=== PATIENT | female | born 1960 | race Caucasian/White ===

== ENCOUNTER 2020-04-27 08:02 | Emergency (ER) | payer OTHER, SELFPAY ==
[2020-04-27 08:04] VITALS: BP 127/80; BP 131/92; PULSE 100; PULSE 108; RESP 17; TEMP 36.8; O2SAT 95; BMI 34.5
--- NOTE | 2020-04-27 08:20 | ED.ABDPAIN ---
HPI - Abdominal Pain General Chief Complaint: Abdominal Pain Stated Complaint: ABD PAIN Time Seen by Provider: 04/27/20 08:10 Source: EMS Mode of arrival: EMS History of Present Illness HPI narrative: 60-year-old female with a past medical history of AFib on Coumadin, bipolar, depression, diverticulosis, DVT, hyperlipidemia, PE with IVC filter, P 80, chronic venous insufficiency, stress incontinence s/p bladder stimulator, total hysterectomy c/o sudden onset periumbilical abdominal pain since last night. Admits to previously being diagnosed with hernia and, however was not painful, reports bump to abdomen. denies fever, chills, nausea / vomiting, constipation, difficulty urinating or having BM MD elicited complaint: abdominal pain Related Data Allergies Allergy/AdvReac Type Severity Reaction Status Date / Time aspirin [ASPIRIN] Allergy Unknown CAN'T Unverified 03/31/20 16:49 TAKE- ON WARFARIN Review of Systems Review of Systems Constitutional: No Weight loss, No Fever, No Chills Cardiovascular: No Chest Pain, No SOB Respiratory: No Cough, No Sputum Gastrointestinal: No Nausea, No Vomiting, No Diarrhea, No Constipation, + Abdominal pain Genitourinary: No irregular bleeding, No Dysuria, No Urinary Frequency, No Hematuria, No Urinary Incontinence, No Urgency, No Flank Pain, No Urinary Flow Changes Skin: No Skin Lesions, No rash Yes all other systems are reviewed and are negative Physical Exam Vital Signs: Vital Signs: Vital Signs Temp Pulse Resp BP Pulse Ox 04/27/20 12:05 98.2 F 79 20 130/87 93 04/27/20 10:19 90 18 135/90 H 95 04/27/20 08:04 98.3 F 100 17 131/92 H 95 Body Mass Index 34.5 Const: General: cooperative and healthy appearing Orientation/consciousness: patient oriented x3 Limitations: no limitations Eyes: General: appearance normal, both eyes and all related structures EOM: EOMs intact bilaterally Neck: Neck: Yes normal visual inspection Resp: Effort & Inspection: normal respiratory effort GI: Inspection: Yes normal to inspection Palpation (GI): Soft to palpation, Tenderness to palpation present (GI) and Hernia present ventral (partially reproducible with pain/ttp) Neuro: General: patient oriented x3 Extrem: General: Yes normal to inspection Course Course Course Narrative: -943-- labs unremarkable, lactate 2, UA negative low concern for severe sepsis -1127-- CT showing ventral and umbilical hernias containing fat. Appear similar to CT in October 2019. will repeat lactate plan for DC -- Repeat lactate 0.4 worrisome signs and symptoms and strict return precautions discussed. Patient is to follow-up with PCP/GI as needed MDM - Abdominal Pain MDM Narrative Medical decision making narrative: 60-year-old female with a past medical history of AFib on Coumadin, bipolar, depression, diverticulosis, DVT, hyperlipidemia, PE with IVC filter, P 80, chronic venous insufficiency, stress incontinence s/p bladder stimulator, total hysterectomy c/o sudden onset periumbilical abdominal pain since last night. on exam VSS, appears in pain, abdomen soft with palpable hernia partially reproducible with pain. Concern for incarcerated/strangulated hernia vs SBO vs diverticulitis vs pancreatitis or other infectious etiology Plan: Labs, UA, CT AP, pain control, reassess Differential Diagnosis Differential diagnosis: Likely abdominal pain, bowel perforation, constipation, diverticulitis and small bowel obstruction Lab Data Result diagrams: 04/27/20 08:49 04/27/20 08:49 Labs: Lab Results 04/27/20 04/27/20 04/27/20 Range/Units 08:49 08:49 08:49 WBC 8.4 (4.8-10.8) X10*3/uL RBC 4.58 (4.20-5.50) X10*6/uL Hgb 13.3 (12.0-16.0) g/dl Hct 40.9 (37-47) % MCV 89.3 (80-98) fL MCH 29.0 (27.0-33.0) pg MCHC 32.5 (31.0-35.0) g/dl RDW 13.3 (11.0-16.0) % Plt Count 246 (160-400) X10*3/uL MPV 11.6 (9.4-12.3) fL Immature Gran % (Auto) 0.2 (0.0-0.4) % Neut % (Auto) 72.3 (45-73) % Lymph % (Auto) 16.9 L (20-40) % [place] % (Auto) 7.5 (2-11) % Eos % (Auto) 2.5 (0-4) % Baso % (Auto) 0.6 (0-2) % Lymph # (Auto) 1.4 (1.2-4.9) X10*3/uL [place] # (Auto) 0.6 (0.1-1.2) X10*3/uL Eos # (Auto) 0.2 (0.0-0.4) X10*3/uL Baso # (Auto) 0.1 (0.0-0.2) X10*3/uL Abs Immat Gran (auto) 0.02 (0.00-0.03) X10*3/uL Absolute Neuts (auto) 6.1 (2.0-8.3) X10*3/uL Absolute Nucleated RBC 0.000 (0.0-0.012) X10*3/uL Nucleated RBC % (auto) 0.0 (0.0-0.2) /100WBC Hold Blue Top Sodium 143 (135-145) mmol/L Potassium 4.4 (3.3-5.1) mmol/l Chloride 107 (96-108) mmol/L Carbon Dioxide 25 (22-29) mmol/L Anion Gap 15 (12-20) BUN 17 H (9-16) mg/dL Creatinine 0.74 (0.5-1.4) mg/dL Estim Creat Clear Calc 76.8 Estimated GFR > 60 Random Glucose 109 (60-115) mg/dL Lactic Acid (0.5-2.0) mmol/L Calcium 8.8 (8.4-10.2) mg/dL Total Bilirubin 0.4 (0.0-1.0) mg/dL Direct Bilirubin < 0.2 (0.0-0.5) mg/dL AST 14 (5-31) U/L ALT 17 (0-31) U/L Alkaline Phosphatase 149 H (39-117) U/L Total Protein 6.7 (6.5-8.0) g/dL Albumin 3.7 (3.5-5.0) g/dL Lipase 45 (8-78) U/L Urine Color YELLOW Urine Appearance HAZY Urine pH 6.0 (5.0-8.0) Ur Specific [address] 1.020 (1.005-1.025) Urine Protein NEG (NEG-TRACE) MG/DL Urine Glucose (UA) NEG (NEG) MG/DL Urine Ketones NEG (NEG) MG/DL Urine Blood NEG (NEG) Urine Nitrite NEG (NEG) Ur Leukocyte Esterase 1+ H (NEG) Urine RBC 0 (0) /HPF Urine WBC 1-4 (0-4) /HPF Ur Squamous Epith Cells TRACE /LPF Urine Bacteria NONE /LPF Urine Mucus TRACE /LPF 04/27/20 04/27/20 04/27/20 Range/Units 08:49 08:55 12:12 WBC (4.8-10.8) X10*3/uL RBC (4.20-5.50) X10*6/uL Hgb (12.0-16.0) g/dl Hct (37-47) % MCV (80-98) fL MCH (27.0-33.0) pg MCHC (31.0-35.0) g/dl RDW (11.0-16.0) % Plt Count (160-400) X10*3/uL MPV (9.4-12.3) fL Immature Gran % (Auto) (0.0-0.4) % Neut % (Auto) (45-73) % Lymph % (Auto) (20-40) % [place] % (Auto) (2-11) % Eos % (Auto) (0-4) % Baso % (Auto) (0-2) % Lymph # (Auto) (1.2-4.9) X10*3/uL [place] # (Auto) (0.1-1.2) X10*3/uL Eos # (Auto) (0.0-0.4) X10*3/uL Baso # (Auto) (0.0-0.2) X10*3/uL Abs Immat Gran (auto) (0.00-0.03) X10*3/uL Absolute Neuts (auto) (2.0-8.3) X10*3/uL Absolute Nucleated RBC (0.0-0.012) X10*3/uL Nucleated RBC % (auto) (0.0-0.2) /100WBC Hold Blue Top SEE NOTE Sodium (135-145) mmol/L Potassium (3.3-5.1) mmol/l Chloride (96-108) mmol/L Carbon Dioxide (22-29) mmol/L Anion Gap (12-20) BUN (9-16) mg/dL Creatinine (0.5-1.4) mg/dL Estim Creat Clear Calc Estimated GFR Random Glucose (60-115) mg/dL Lactic Acid 2.0 0.4 L (0.5-2.0) mmol/L Calcium (8.4-10.2) mg/dL Total Bilirubin (0.0-1.0) mg/dL Direct Bilirubin (0.0-0.5) mg/dL AST (5-31) U/L ALT (0-31) U/L Alkaline Phosphatase (39-117) U/L Total Protein (6.5-8.0) g/dL Albumin (3.5-5.0) g/dL Lipase (8-78) U/L Urine Color Urine Appearance Urine pH (5.0-8.0) Ur Specific [address] (1.005-1.025) Urine Protein (NEG-TRACE) MG/DL Urine Glucose (UA) (NEG) MG/DL Urine Ketones (NEG) MG/DL Urine Blood (NEG) Urine Nitrite (NEG) Ur Leukocyte Esterase (NEG) Urine RBC (0) /HPF Urine WBC (0-4) /HPF Ur Squamous Epith Cells /LPF Urine Bacteria /LPF Urine Mucus /LPF Discharge Plan Discharge Clinical Impression: Abdominal pain Qualifiers: Abdominal location: generalized Qualified Code(s): R10.84 - Generalized abdominal pain Patient Disposition: Home, Self-Care Instructions: Abdominal Pain (ED) Additional Instructions: your blood work was reassuring /unremarkable today in the ED Your CT scan did not show any changes from her prior CT scan in October You need to take Tylenol at home for pain Make sure staying hydrated Follow-up with her primary care doctor If pain becomes unbearable, you are unable to eat or drink, have nausea/vomiting return to the ED Referrals: Alberto Borjas [Physician] - 1 week (as neededs) Natalya Salmon MD [Primary Care Provider] - 2 days PMF Past Medical History Attestation statement: The following information was validated with the patient. Source: unable to obtain Medical History (Updated 04/27/20 @ 11:45 by JOSE Peres) Atrial fibrillation Bipolar 1 disorder Chronic venous insufficiency Diverticulosis Hyperlipidemia PAD (peripheral artery disease) Stress incontinence Social History Social History Alcohol intake: never Smoking Status: Current every day smoker Use of substances other than those prescribed or required for medical reasons: No Advance Directives: No Advance Directives Information Provided: No
[2020-04-27 08:55] LABS: MANUAL DIFF FLAG NO
[2020-04-27 08:58] LABS: Basophils Absolute Auto 0.1 X10*3/uL (0.0-0.2); Basophils Percent Auto 0.6 % (0-2); Eosinophils Absolute Auto 0.2 X10*3/uL (0.0-0.4); Eosinophils Percent Auto 2.5 % (0-4); Hematocrit 40.9 % (37-47); Hemoglobin 13.3 g/dl (12.0-16.0); Imm Gran Abs Auto 0.02 X10*3/uL (0.00-0.03); Imm Gran Pct Auto 0.2 % (0.0-0.4); Lymphocytes Absolute Auto 1.4 X10*3/uL (1.2-4.9); Lymphocytes Percent Auto 16.9 % (20-40); Mean Corpuscular HGB Conc 32.5 g/dl (31.0-35.0); Mean Corpuscular Volume 89.3 fL (80-98); Mean Platelet Volume 11.6 fL (9.4-12.3); Monocytes Absolute Auto 0.6 X10*3/uL (0.1-1.2); Monocytes Percent Auto 7.5 % (2-11); Neutrophils Absolute Auto 6.1 X10*3/uL (2.0-8.3); Neutrophils Percent Auto 72.3 % (45-73); Platelet Count 246 X10*3/uL (160-400); Red Blood Count 4.58 X10*6/uL (4.20-5.50); Red Cell Distribution Width 13.3 % (11.0-16.0); White Blood Count 8.4 X10*3/uL (4.8-10.8)
[2020-04-27] MEDS: Morphine Sulfate 4 MG/ML CARTRIDGE 2 MG IVPUSH (09:01)
[2020-04-27] MEDS: 0.9 % Sodium Chloride 1,000 ML 999 ML IVCONT ×2 (09:01→10:19)
[2020-04-27 09:12] LABS: Appearance Urine HAZY; Color Urine YELLOW; Glucose Urine UA NEG (NEG); Leukocyte Esterase Urine 1+ (NEG); Nitrite Urine NEG (NEG); Urine Blood NEG (NEG); Urine Ketones NEG (NEG); Urine Protein NEG (NEG-TRACE)
[2020-04-27 09:22] LABS: Mucus Urine TRACE /LPF; RBC Urine 0 /HPF (0); Squamous Epithelial Cell Urine TRACE /LPF
[2020-04-27 09:30] LABS: Alanine Aminotransferase 17 U/L (0-31); Albumin Level 3.7 g/dL (3.5-5.0); Alkaline Phosphatase 149 U/L (39-117); Anion Gap 15 (12-20); Aspartate Amino Transferase 14 U/L (5-31); Bilirubin Direct < 0.2 mg/dL (0.0-0.5); Bilirubin Total 0.4 mg/dL (0.0-1.0); Blood Urea Nitrogen 17 mg/dL (9-16); Calcium 8.8 mg/dL (8.4-10.2); Carbon Dioxide 25 mmol/L (22-29); Chloride 107 mmol/L (96-108); Creatinine Clr Calc Pharmacy 76.8; Estimated Glomerular Filt Rate > 60; Glucose Random 109 mg/dL (60-115); Lipase 45 U/L (8-78); Potassium 4.4 mmol/l (3.3-5.1); Sodium 143 mmol/L (135-145); Total Protein 6.7 g/dL (6.5-8.0)
[2020-04-27 10:19] VITALS: BP 135/90; PULSE 90; RESP 18; O2SAT 95
--- NOTE | 2020-04-27 10:30 | CT_ITS ---
EXAMINATION: CT ABDOMEN AND PELVIS WITH CONTRAST CLINICAL INFORMATION: Pain. Evaluate for strangulated or incarcerated hernia. COMPARISON: Previous renal ultrasound most recent November [address] of the abdomen and pelvis most recent October 2019 TECHNIQUE: Multidetector volumetric images were obtained from the superior aspect of the liver through the pubic symphysis following administration 85 mL of Omnipaque 350 intravenous contrast. Sagittal and coronal reformatted images were obtained on the technologist's workstation. Oral contrast: No This CT examination was performed using dose optimization techniques as appropriate, variously including the following: *Automated exposure control *Adjustment of mA and/or kV according to patient size (this includes techniques or standardized protocols for targeted exams where dose is matched to indication/reason for exam; i.e. extremities or head) *Use of iterative reconstruction technique DLP: 562 mGy-cm FINDINGS: LUNG BASES: The visualized lung bases are unremarkable. LIVER, GALLBLADDER, AND BILIARY TREE: The liver is normal in size, shape, and attenuation. No focal hepatic lesion or biliary ductal dilatation is present. The gallbladder is unremarkable with no evidence of radiopaque gallstones, gallbladder wall thickening, or obvious pericholecystic inflammatory changes. PANCREAS: Unremarkable. SPLEEN: Unremarkable. ADRENAL GLANDS: There is a 1.6 cm low-attenuation left adrenal lesion that is stable. The right adrenal gland is normal-appearing. KIDNEYS AND URETERS: There is a small subcapsular fluid collection adjacent to the anterior right kidney. This measures 2 x 3 x 5 cm in AP transverse and longitudinal dimension. This is compatible with a history of resolving perinephric hematoma. There is mild cortical thinning or scarring of the upper and lower pole of the left kidney. The kidneys are otherwise unremarkable. BLADDER: Unremarkable. GASTROINTESTINAL TRACT: There is diverticulosis of the colon. No evidence of diverticulitis is seen. Small and large bowel is otherwise unremarkable. The appendix is unremarkable. There may be a small esophageal hernia. ABDOMINAL WALL: There is an upper midline ventral hernia containing fat. This measures 2 x 2 by 3 cm. There is a more cystic inferior smaller ventral or supraumbilical hernia containing fat that measures 1 cm. There is a small umbilical hernia containing fat that measures 1 cm. No infiltration of the fat or fluid is seen to suggest vascular compromise. Hernias appear similar to most recent exam October 2019. There are multiple subcutaneous nodules in the bilateral abdominal wall, question related to subcutaneous injections sites. LYMPH NODES: There are no enlarged lymph nodes. There is no ascites. VASCULAR: Evidence of atherosclerotic disease. No aneurysm is seen. There is a left common iliac vein stent. PELVIC VISCERA: The uterus appears to have been removed. No pelvic mass is seen. OSSEOUS STRUCTURES: There is curvature of the lumbar spine to the right and degenerative changes. There are stimulator leads in the bilateral sacrum that appear unchanged. IMPRESSION: Ventral and umbilical hernias containing fat. These appear similar to CT scan October 2019. Continued interval decrease in size in right subcapsular fluid collection compatible with resolving perinephric hematoma. No stone or hydronephrosis is seen. Diverticulosis of the colon. Probable esophageal hernia. Stable left adrenal lesion.
--- NOTE | 2020-04-27 10:32 | PC.NURSE ---
pt pharmacy affairs assistant hadley updated on plan of care w pt permission. pt pharmacy affairs assistant sts pt was scheduled for community activites with members of day program, but had suddenly felt a lot of stomachh pain this morning. pharmacy affairs assistant sts hx of pt avoiding social activities and long standing depression. contacts given incase pt is dc and needs ride. hadley: [phone], иван [phone]
[2020-04-27] MEDS: iohexoL 350 MG/ML 100 ML INFUS..BTL 85 ML IV (10:53)
[2020-04-27 12:05] VITALS: BP 130/87; PULSE 79; RESP 20; TEMP 36.8; O2SAT 93
[2020-04-27] MEDS: Acetaminophen 325 MG TABLET 650 MG PO (12:33)
[2020-04-27 12:37] LABS: Lactic Acid 0.4 mmol/L (0.5-2.0)
== END 2020-04-29 10:11 | disposition home or self-care (01) ==
PROVIDERS: Physician Assistant; Emergency Provider Emergency Medicine; PCP Family Medicine
DX: R10.84 Generalized abdominal pain (principal); F17.200 Nicotine dependence, unspecified, uncomplicated; Z71.6 Tobacco abuse counseling; Z79.899 Other long term (current) drug therapy; Z79.01 Long term (current) use of anticoagulants; Z79.82 Long term (current) use of aspirin
CPT/HCPCS: 36415; 74177; 80048; 80076; 81001; 81003; 83605; 83690; 85025; 87086; 96361; 96374; 99284; J2270

== ENCOUNTER → 2020-05-10 09:15 | Outpatient (BNVA) | payer OTHER, SELFPAY | PROVIDERS: PCP Internal Medicine; Referring Provider Family Medicine; Visit Provider Internal Medicine | DX: I82.403 Acute embolism and thrombosis of unspecified deep veins of lower extremity, bilateral (principal); Z51.81 Encounter for therapeutic drug level monitoring; Z79.01 Long term (current) use of anticoagulants | CPT/HCPCS: 85610; 99211 ==

== ENCOUNTER → 2020-06-07 10:01 | Outpatient (BNVA) | payer OTHER, SELFPAY | PROVIDERS: PCP Internal Medicine; Visit Provider Internal Medicine | DX: I82.403 Acute embolism and thrombosis of unspecified deep veins of lower extremity, bilateral (principal); Z51.81 Encounter for therapeutic drug level monitoring; Z79.01 Long term (current) use of anticoagulants | CPT/HCPCS: 85610; 99211 ==

== ENCOUNTER 2020-06-29 16:08 | Outpatient (REF) | payer OTHER, SELFPAY ==
--- NOTE | 2020-06-29 | US_ITS ---
EXAMINATION: US RETROPERITONEAL LIMITED (RENAL ONLY) CLINICAL INFORMATION: Renal calculus. COMPARISON: CT abdomen and pelvis 04/27/2020. Renal ultrasound 12/08/2019 and 09/23/2019. KUB 11/18/2019 and 09/02/2019. TECHNIQUE: Real-time imaging of the kidneys. FINDINGS: RIGHT KIDNEY: 8.5 x 5.8 x 5.3 cm (SAG x AP x TRV). The kidney is normal in size, contour, and echogenicity. Renal cortical thickness is normal. There is a subcapsular hypoechoic area with some internal echoes adjacent to the midpole measuring 3.7 x 2.5 x 2.5 cm. Again, this likely represents a subcapsular hematoma. This does not appear appreciably changed size from CT April 2020. No calculi. No hydronephrosis. LEFT KIDNEY: 9.7 x 4.6 x 4.6 cm (SAG x AP x TRV). The kidney is normal in size, contour, and echogenicity. Renal cortical thickness is normal. No calculi or focal parenchymal lesions. No hydronephrosis. US/US renal BI IMPRESSION: No stone seen. Stable probable subcapsular hematoma adjacent to the midpole of the right kidney..
== END 2020-06-29 16:09 | disposition home or self-care (01) ==
LOC: HO.HMGCX 16:08
PROVIDERS: PCP Internal Medicine; Visit Provider Urology
DX: N20.0 Calculus of kidney (principal)
CPT/HCPCS: 76775

== ENCOUNTER → 2020-07-19 08:43 | Outpatient (BNVA) | payer OTHER, SELFPAY | PROVIDERS: PCP Internal Medicine; Visit Provider Internal Medicine | DX: I82.403 Acute embolism and thrombosis of unspecified deep veins of lower extremity, bilateral (principal); Z51.81 Encounter for therapeutic drug level monitoring; Z79.01 Long term (current) use of anticoagulants | CPT/HCPCS: 85610; 99211 ==

== ENCOUNTER → 2020-08-23 09:01 | Outpatient (BNVA) | payer MEDICAID, SELFPAY | PROVIDERS: PCP Internal Medicine; Visit Provider Internal Medicine | DX: I82.403 Acute embolism and thrombosis of unspecified deep veins of lower extremity, bilateral (principal); Z51.81 Encounter for therapeutic drug level monitoring; Z79.01 Long term (current) use of anticoagulants | CPT/HCPCS: 85610; 99211 ==

== ENCOUNTER → 2020-09-21 08:57 | Outpatient (BNVA) | payer MEDICAID, SELFPAY | PROVIDERS: Visit Provider Internal Medicine | DX: I82.403 Acute embolism and thrombosis of unspecified deep veins of lower extremity, bilateral (principal); Z51.81 Encounter for therapeutic drug level monitoring; Z79.01 Long term (current) use of anticoagulants | CPT/HCPCS: 85610; 99211 ==

== ENCOUNTER 2020-10-07 11:48 | Emergency (ER) | payer MEDICAID, SELFPAY ==
--- NOTE | ~2020-10-07 | CT_ITS ---
EXAMINATION: CT ABDOMEN AND PELVIS WITH CONTRAST CLINICAL INFORMATION: Hernia, pain, evaluate for incarceration. COMPARISON: CT abdomen and pelvis with contrast 04/27/2020. TECHNIQUE: Multidetector volumetric images were obtained from the superior aspect of the liver through the pubic symphysis following administration 85 mL of Omnipaque 350 intravenous contrast. Sagittal and coronal reformatted images were obtained on the technologist's workstation. Oral contrast: No This CT examination was performed using dose optimization techniques as appropriate, variously including the following: *Automated exposure control *Adjustment of mA and/or kV according to patient size (this includes techniques or standardized protocols for targeted exams where dose is matched to indication/reason for exam; i.e. extremities or head) *Use of iterative reconstruction technique DLP: 633 mGy-cm FINDINGS: LUNG BASES: The visualized lung bases are unremarkable. LIVER, GALLBLADDER, AND BILIARY TREE: The liver is normal in size, shape, and attenuation. No focal hepatic lesion or biliary ductal dilatation is present. The gallbladder is unremarkable with no evidence of radiopaque gallstones, gallbladder wall thickening, or obvious pericholecystic inflammatory changes. PANCREAS: Unremarkable. SPLEEN: Unremarkable. ADRENAL GLANDS: Left adrenal nodule approximately 1.9 x 1.6 cm and water attenuation, 5 H U, stable from prior CT 2019. Right adrenal unremarkable. KIDNEYS AND URETERS: The kidneys enhance symmetrically. There is no hydronephrosis, hydroureter, calculi, or perinephric stranding. Right anterior subcapsular fluid collection continues to decrease in size, currently measuring 1.2 x 2.9 x 4.2 cm. Prior measurements 2.2 x 3.9 x 4.9 cm. BLADDER: Unremarkable. GASTROINTESTINAL TRACT: Small hiatal hernia repair approximately 4.4 cm. No bowel obstruction or focal inflammatory changes in the bowel or mesentery. The appendix is normal. There is no fluid collection or ascites. ABDOMINAL WALL: There is small ventral fat-containing hernia approximately 6 cm superior to the umbilicus, under 4 cm. There is fat-containing umbilical hernia measuring approximately 3 cm. Small fat-containing inguinal hernias are present. No herniated bowel or strangulation. LYMPH NODES: No lymphadenopathy. VASCULAR: No acute abnormality. Left common iliac vein stent again seen. PELVIC VISCERA: Unremarkable. OSSEOUS STRUCTURES: Sacral spinal stimulator leads again seen. No acute bony abnormality. CT/CT abdomen pelvis w con IMPRESSION: 1. No inflammatory changes in bowel or mesentery. Normal appendix. 2. Small stable fat-containing ventral or inguinal hernias. 3. Stable cystic left adrenal nodule under 2 cm. 4. Right anterior renal subcapsular fluid collection decreased in size.
--- NOTE | ~2020-10-07 | US_ITS ---
EXAMINATION: US VENOUS ULTRASOUND WITH DOPPLER LOWER EXTREMITY, LEFT CLINICAL INFORMATION: Edema left lower extremity. Assess for occult DVT. COMPARISON: Left leg venous ultrasound with Doppler 05/19/2019. TECHNIQUE: Ultrasound of the deep veins is performed from the hip to the calf with compression sonography and color and pulse Doppler assessment. Spectral analysis with color-flow imaging is performed. FINDINGS: There is normal venous compression and respiratory variation and augmented flow. The visualized common femoral vein, superficial femoral vein, profunda femoral vein, popliteal vein, and the trifurcation region shows no evidence of deep venous thrombosis. No popliteal fossa cyst demonstrated. US/US venous duplex LE LT IMPRESSION: No DVT demonstrated in the left lower extremity.
[2020-10-07 11:58] VITALS: BP 152/94; PULSE 101; RESP 16; TEMP 36.9; O2SAT 96; BMI 34.5
--- NOTE | 2020-10-07 12:43 | ED.GENADULT ---
HPI - General Adult General Chief complaint: General Medical Stated complaint: foot issue Time Seen by Provider: 10/07/20 12:04 Source: patient Mode of arrival: ambulatory Limitations: no limitations History of Present Illness HPI narrative: 60-year-old female with a past medical history of AFib on Coumadin, bipolar, depression, diverticulosis, DVT, hyperlipidemia, PE with IVC filter, P 80, chronic venous insufficiency, stress incontinence s/p bladder stimulator, total hysterectomy c/o left lower extremity pain in the calf which radiates the foot x2 weeks. No injury or trauma. No numbness, tingling. History of multiple DVTs however has been compliant with her Coumadin. Last INR on September 21 was 2.4 per patient. Patient is also complaining of mid abdominal pain. She tells me that she has a known hernia and has had pain in the site for 2 weeks. No nausea, vomiting, diarrhea, constipation, fevers, chills, urinary symptoms. Patient tells me she is taking pain Tylenol with continued pain. Related Data Previous Rx's Medication Instructions Recorded warfarin 5 mg tablet 5 mg PO DAILY #90 tab 05/10/20 Allergies Allergy/AdvReac Type Severity Reaction Status Date / Time aspirin [ASPIRIN] Allergy Unknown CAN'T Verified 09/21/20 08:58 TAKE- ON WARFARIN Review of Systems Review of Systems: Yes all other systems are reviewed and are negative Constitutional: Constitutional: Reports no additional constitutional complaints, Denies body ache(s), Denies chills, Denies fever(s), Denies headache(s) and Denies weakness Eyes: Eyes: Reports no additional eye complaints and Denies change in vision ENT: Reports system reviewed and no additional complaints, except as documented, Denies dizziness, Denies headache(s), Denies nasal congestion, Denies nasal discharge and Denies neck pain Cardiovascular: Cardiovascular: Reports no additional cardiovascular complaints, Denies chest pain, Denies leg edema and Denies dyspnea Respiratory: Respiratory: Reports no additional respiratory complaints, Denies cough and Denies dyspnea Gastrointestinal: Gastrointestinal: Reports no additional gastrointestinal complaints, Reports abdominal pain, Denies diarrhea, Denies nausea and Denies vomiting Genitourinary: Genitourinary: Reports no additional female genitourinary complaints and Denies urinary incontinence Musculoskeletal: Musculoskeletal: Reports no additional musculoskeletal complaints, Denies back pain, Denies arthralgias, Denies joint swelling, Denies neck pain, Denies numbness and Denies tingling Comments: Calf pain Integumentary/Breasts: Skin/Breast: Reports system reviewed and no additional complaints, except as docu and Denies rash Neurologic: Reports system reviewed and no additional complaints, except as documented, Denies Abnormal speech present, Denies dizziness, Denies headache(s), Denies numbness, Denies tingling and Denies weakness PMFSH Past Medical History Attestation statement: The following information was validated with the patient. Source: old records reviewed and nursing notes reviewed Medical History Atrial fibrillation Bipolar 1 disorder Chronic venous insufficiency Diverticulosis Hyperlipidemia PAD (peripheral artery disease) Stress incontinence Social History Social History Alcohol intake: never Smoking Status: Never smoker Use of substances other than those prescribed or required for medical reasons: No Advance Directives: Yes Advance Directives Information Provided: No Advance Directives on File: No Physical Exam Vital Signs: Vital Signs: Last Vital Signs Temp 98.5 F 10/07/20 16:00 Pulse 74 10/07/20 16:00 Resp 18 10/07/20 16:00 BP 141/70 H 10/07/20 16:00 Pulse Ox 96 10/07/20 16:00 Body Mass Index 34.5 Const: General: cooperative, healthy appearing, comfortable and no acute distress Orientation/consciousness: patient oriented x3 Limitations: no limitations HENMT: Head: Yes normal to inspection Ears: hearing grossly normal bilaterally General nose exam: Normal external nose present Face and sinus: Yes normal facial exam Mouth: Normal oral and palatal mucosa present Throat: Yes posterior oropharynx normal Eyes: General: appearance normal, both eyes and all related structures Pupils: Equal, round and reactive pupils present Neck: Neck: Yes normal visual inspection Chest: Chest palpation & inspection: normal inspection of the chest Resp: Effort & Inspection: normal respiratory effort Auscultation: clear to auscultation bilaterally Cardio: Rate: regular rate Rhythm: regular rhythm Peripheral pulses: Peripheral pulses 2+ throughout GI: Inspection: Yes normal to inspection Palpation (GI): Soft to palpation and Tenderness to palpation present (GI) (Umbilical hernia palpated with the tenderness. Unable to reduce) Auscultation: normal bowel sounds Back/Spine/Pelvis: Thoracic/Lumbar Spine: thoracic and lumbar spine normal to inspection Skin: General skin exam: no rashes or lesions noted Neuro: General: patient oriented x3, no focal motor deficits and normal sensation to monofilament Cranial nerves: Yes Equal, round and reactive pupils present Cognition (Neuro): normal cognition Speech: No Abnormal speech present Gait exam (Neuro): Normal gait present Motor exam (neuro): 5/5 motor strength present throughout Extrem: Other: No swelling left calf. Skin is warm, dry. Sensation is intact. Palpable pulses noted 2+ General: Yes normal to inspection, Yes no pedal edema and Yes calf tenderness (Left calf tenderness worsened with dorsi/plantar flexion. ) Course Course Course Narrative: 60-year-old female here with multiple complaints. She tells me that she has left calf pain x2 weeks with a history of DVTs although she has been compliant with her Coumadin with therapeutic INRs. On exam she has some calf tenderness. No swelling, warmth, redness, fevers, chills. Due to history will check ultrasound as well as INR today. Also complaining of tenderness around her umbilical hernia site x2 weeks. No other symptoms. Will check CT a/P to rule out incarcerated hernia. Check labs, urine. -ultrasound negative for DVT. Pain is likely from intermittent claudication from peripheral arterial disease. No erythema, warmth or fevers or chills consistent with cellulitis. Patient is followed by vascular and will recommend her to follow up with that. CT shows 1. No inflammatory changes in bowel or mesentery. Normal appendix. 2. Small stable fat-containing ventral or inguinal hernias. 3. Stable cystic left adrenal nodule under 2 cm. 4. Right anterior renal subcapsular fluid collection decreased in size. No signs of incarcerated hernia. I went to reexamine the patient. Her repeat abdominal pain is soft and benign. She is feeling improved. We will refer her to surgery for elective hernia repair as needed. Reviewed worrisome signs and symptoms and when to return to the emergency department. Comfortable discharge home. Medical Decision Making MDM Narrative Medical decision making narrative: DVT, calf strain Incarcerated hernia Lab Data Result diagrams: 10/07/20 13:24 10/07/20 13:24 Labs: Lab Results 10/07/20 10/07/20 10/07/20 Range/Units 13:24 13:24 13:24 WBC 10.0 (4.8-10.8) X10*3/uL RBC 4.44 (4.20-5.50) X10*6/uL Hgb 13.3 (12.0-16.0) g/dl Hct 40.7 (37-47) % MCV 91.7 (80-98) fL MCH 30.0 (27.0-33.0) pg MCHC 32.7 (31.0-35.0) g/dl RDW 13.2 (11.0-16.0) % Plt Count 204 (160-400) X10*3/uL MPV 11.4 (9.4-12.3) fL Immature Gran % (Auto) 0.4 (0.0-0.4) % Neut % (Auto) 67.6 (45-73) % Lymph % (Auto) 21.5 (20-40) % [place] % (Auto) 7.4 (2-11) % Eos % (Auto) 2.6 (0-4) % Baso % (Auto) 0.5 (0-2) % Lymph # (Auto) 2.2 (1.2-4.9) X10*3/uL [place] # (Auto) 0.7 (0.1-1.2) X10*3/uL Eos # (Auto) 0.3 (0.0-0.4) X10*3/uL Baso # (Auto) 0.1 (0.0-0.2) X10*3/uL Abs Immat Gran (auto) 0.04 H (0.00-0.03) X10*3/uL Absolute Neuts (auto) 6.8 (2.0-8.3) X10*3/uL Absolute Nucleated RBC 0.000 (0.0-0.012) X10*3/uL Nucleated RBC % (auto) 0.0 (0.0-0.2) /100WBC PT 20.8 H (10.8-13.0) SEC INR 1.7 H (0.9-1.1) Sodium 141 (135-145) mmol/L Potassium 4.8 (3.3-5.1) mmol/L Chloride 107 (96-108) mmol/L Carbon Dioxide 24 (22-29) mmol/L Anion Gap 15 (12-20) BUN 20 H (9-16) mg/dL Creatinine 0.77 (0.5-1.4) mg/dL Estim Creat Clear Calc 73.8 Estimated GFR > 60 Random Glucose 83 (60-115) mg/dL Calcium 9.1 (8.4-10.2) mg/dL Total Bilirubin 0.2 (0.0-1.0) mg/dL Direct Bilirubin < 0.2 (0.0-0.5) mg/dL AST 24 D (5-31) U/L ALT 22 (0-31) U/L Alkaline Phosphatase 136 H (39-117) U/L Total Protein 7.3 (6.5-8.0) g/dL Albumin 4.1 (3.5-5.0) g/dL Imaging Data Venous US: Attestation: I personally reviewed and interpreted this imaging study as follows: Radiologist's impression: EXAMINATION: US VENOUS ULTRASOUND WITH DOPPLER LOWER EXTREMITY, LEFT CLINICAL INFORMATION: Edema left lower extremity. Assess for occult DVT. COMPARISON: Left leg venous ultrasound with Doppler 05/19/2019. TECHNIQUE: Ultrasound of the deep veins is performed from the hip to the calf with compression sonography and color and pulse Doppler assessment. Spectral analysis with color-flow imaging is performed. FINDINGS: There is normal venous compression and respiratory variation and augmented flow. The visualized common femoral vein, superficial femoral vein, profunda femoral vein, popliteal vein, and the trifurcation region shows no evidence of deep venous thrombosis. No popliteal fossa cyst demonstrated. US/US venous duplex LE LT IMPRESSION: No DVT demonstrated in the left lower extremity. CT scan - abdomen: Attestation: I personally reviewed and interpreted this imaging study as follows: Radiologist's impression: CT/CT abdomen pelvis w con IMPRESSION: 1. No inflammatory changes in bowel or mesentery. Normal appendix. 2. Small stable fat-containing ventral or inguinal hernias. 3. Stable cystic left adrenal nodule under 2 cm. 4. Right anterior renal subcapsular fluid collection decreased in size. Discharge Plan Discharge Clinical Impression: PAD (peripheral artery disease) Hernia, umbilical Qualifiers: Obstruction and gangrene presence: without obstruction or gangrene Qualified Code(s): K42.9 - Umbilical hernia without obstruction or gangrene Patient Disposition: Home, Self-Care Instructions: Umbilical Hernia (ED) Additional Instructions: No heavy lifting or bending Use compression stockings, elevate her lower legs Prescriptions: No Action warfarin 5 mg tablet 5 mg PO DAILY Qty: 90 RF: 0 Referrals: David Menendez MD [Physician] - 2 days Lis Julian MD [Physician] - 2 days Interventions: ED Discharge Assessment Last Done: 10/07/20 16:58 Discharge Date/Time: 10/07/20 16:59
[2020-10-07 13:32] LABS: MANUAL DIFF FLAG NO
[2020-10-07 13:34] LABS: Hematocrit 40.7 % (37-47); Hemoglobin 13.3 g/dl (12.0-16.0); Imm Gran Pct Auto 0.4 % (0.0-0.4); Mean Corpuscular HGB Conc 32.7 g/dl (31.0-35.0); Mean Corpuscular Volume 91.7 fL (80-98); Mean Platelet Volume 11.4 fL (9.4-12.3); Neutrophils Percent Auto 67.6 % (45-73); Platelet Count 204 X10*3/uL (160-400); Red Blood Count 4.44 X10*6/uL (4.20-5.50); Red Cell Distribution Width 13.2 % (11.0-16.0)
[2020-10-07 13:35] LABS: Basophils Absolute Auto 0.1 X10*3/uL (0.0-0.2); Basophils Percent Auto 0.5 % (0-2); Eosinophils Absolute Auto 0.3 X10*3/uL (0.0-0.4); Eosinophils Percent Auto 2.6 % (0-4); Imm Gran Abs Auto 0.04 X10*3/uL (0.00-0.03); Lymphocytes Absolute Auto 2.2 X10*3/uL (1.2-4.9); Lymphocytes Percent Auto 21.5 % (20-40); Monocytes Absolute Auto 0.7 X10*3/uL (0.1-1.2); Monocytes Percent Auto 7.4 % (2-11); Neutrophils Absolute Auto 6.8 X10*3/uL (2.0-8.3)
[2020-10-07 13:43] LABS: INTERNATIONAL NORM RATIO 1.7 (0.9-1.1); Prothrombin Time 20.8 SEC (10.8-13.0)
[2020-10-07] MEDS: ondansetron HCL 4 MG/2 ML VIAL IVPUSH (13:59)
[2020-10-07] MEDS: Morphine Sulfate 4 MG/ML CARTRIDGE IVPUSH (13:59)
[2020-10-07 14:05] LABS: Alanine Aminotransferase 22 U/L (0-31); Albumin Level 4.1 g/dL (3.5-5.0); Alkaline Phosphatase 136 U/L (39-117); Anion Gap 15 (12-20); Aspartate Amino Transferase 24 U/L (5-31); Bilirubin Direct < 0.2 mg/dL (0.0-0.5); Bilirubin Total 0.2 mg/dL (0.0-1.0); Blood Urea Nitrogen 20 mg/dL (9-16); Calcium 9.1 mg/dL (8.4-10.2); Carbon Dioxide 24 mmol/L (22-29); Chloride 107 mmol/L (96-108); Creatinine Clr Calc Pharmacy 73.8; Estimated Glomerular Filt Rate > 60; Glucose Random 83 mg/dL (60-115); Potassium 4.8 mmol/L (3.3-5.1); Sodium 141 mmol/L (135-145); Total Protein 7.3 g/dL (6.5-8.0)
[2020-10-07 16:00] VITALS: BP 141/70; PULSE 74; RESP 18; TEMP 36.9; O2SAT 96
== END 2020-10-07 16:59 | disposition home or self-care (01) ==
PROVIDERS: Nurse Practitioner Family; Emergency Provider Emergency Medicine Emergency Medical Services; PCP Internal Medicine
DX: I73.9 Peripheral vascular disease, unspecified (principal); K42.9 Umbilical hernia without obstruction or gangrene; R60.0 Localized edema; I48.91 Unspecified atrial fibrillation; M79.605 Pain in left leg; M79.672 Pain in left foot; M79.671 Pain in right foot; Z79.899 Other long term (current) drug therapy; Z79.01 Long term (current) use of anticoagulants; Z86.718 Personal history of other venous thrombosis and embolism
CPT/HCPCS: 36415; 74177; 80048; 80076; 85025; 85610; 93971; 96374; 96375; 99284; J2270; J2405

== ENCOUNTER → 2020-10-11 09:15 | Outpatient (BNVA) | payer MEDICAID, SELFPAY | PROVIDERS: PCP Internal Medicine; Visit Provider Surgery | DX: Z01.818 Encounter for other preprocedural examination (principal); K43.9 Ventral hernia without obstruction or gangrene; K42.9 Umbilical hernia without obstruction or gangrene; R06.02 Shortness of breath | CPT/HCPCS: 99202 ==

== ENCOUNTER 2020-10-12 10:15 | Outpatient (REF) | payer MEDICAID, SELFPAY ==
--- NOTE | ~2020-10-12 | XR_ITS ---
EXAMINATION: XR CHEST CLINICAL INFORMATION: Shortness of breath COMPARISON: None TECHNIQUE: 2 views of the chest were obtained. FINDINGS: The lungs are hyperinflated but clear. The heart size and pulmonary vascularity is normal. There is mild dextroscoliosis dorsal spine. XR/XR chest 2V IMPRESSION: Hyperinflated lungs without acute process.
--- NOTE | 2020-10-12 10:30 | ECG_ITS ---
Test Reason : SOB Blood Pressure : / mmHG Vent. Rate : 107 BPM Atrial Rate : 107 BPM P-R Int : 130 ms QRS Dur : 070 ms QT Int : 346 ms P-R-T Axes : 051 040 056 degrees QTc Int : 461 ms Sinus tachycardia Possible Left atrial enlargement Borderline ECG When compared with ECG of 23-APR-2019 08:58, No significant change was found Referred By: Lis Julian Electronically Signed By:Mesfin Perez
[2020-10-12 11:06] LABS: INTERNATIONAL NORM RATIO 1.9 (0.9-1.1); Prothrombin Time 22.2 SEC (10.8-13.0)
[2020-10-12 11:42] LABS: Glucose Urine UA NEG (NEG); Leukocyte Esterase Urine TRACE (NEG); Nitrite Urine NEG (NEG); PH 5.5 (5.0-8.0); UACC Culture Trigger YES; Urine Blood TRACE (NEG); Urine Ketones NEG (NEG); Urine Protein NEG (NEG-TRACE)
[2020-10-12 11:43] LABS: Appearance Urine CLEAR; Color Urine YELLOW
[2020-10-12 11:56] LABS: Mucus Urine TRACE /LPF; RBC Urine 0-2 /HPF (0); Squamous Epithelial Cell Urine 1+ /LPF
== END 2020-10-12 10:16 | disposition home or self-care (01) ==
LOC: HO.XRAY 10:15
PROVIDERS: PCP Internal Medicine; Visit Provider Surgery
DX: Z01.818 Encounter for other preprocedural examination (principal); R06.02 Shortness of breath
CPT/HCPCS: 36415; 71046; 81001; 81003; 85610; 85730; 87086; 93005

== ENCOUNTER → 2020-10-19 09:01 | Outpatient (BNVA) | payer MEDICAID, SELFPAY | PROVIDERS: PCP Internal Medicine; Visit Provider Internal Medicine | DX: I82.403 Acute embolism and thrombosis of unspecified deep veins of lower extremity, bilateral (principal); Z51.81 Encounter for therapeutic drug level monitoring; Z79.01 Long term (current) use of anticoagulants | CPT/HCPCS: 85610; 99211 ==

== ENCOUNTER → 2020-10-20 14:29 | Outpatient (BNVA) | payer MEDICAID, SELFPAY | PROVIDERS: PCP Internal Medicine; Visit Provider Surgery Vascular Surgery | DX: I83.12 Varicose veins of left lower extremity with inflammation (principal); I73.9 Peripheral vascular disease, unspecified | CPT/HCPCS: 99202 ==

== ENCOUNTER 2020-10-27 10:25 | Outpatient (REF) | payer MEDICAID, SELFPAY ==
--- NOTE | ~2020-10-27 | US_ITS ---
EXAMINATION: US LOWER EXTREMITY VENOUS (REFLUX EXAM), BILATERAL CLINICAL INDICATION: Lower extremity varicosities. COMPARISON: Left lower extremity venous Doppler ultrasound on 05/19/2019. TECHNIQUE: Color flow triplex imaging and compression Doppler was performed to evaluate both the deep and the superficial systems bilaterally. To evaluate the superficial system, the examination was performed in the upright position. Color-flow Doppler ultrasound and compression ultrasound were utilized. In addition, maneuvers were utilized to demonstrate reflux. FINDINGS: 1. DEEP VENOUS ULTRASOUND OF THE RIGHT LOWER EXTREMITY: Common Femoral Vein: Compressible, normal respiratory variation and augmented flow. Femoral vein: Compressible, normal color flow and augmentation. Popliteal Vein: Compressible, normal augmentation. Deep Reflux: There is no evidence of reflux in the deep system in either the common femoral vein or the popliteal vein. There is no evidence of a Sidhu's cyst. 2. SUPERFICIAL ULTRASOUND WITH DOPPLER OF RIGHT LOWER EXTREMITY GREAT SAPHENOUS VEIN: Saphenofemoral junction: 0.6 cm; no evidence of reflux. Proximal thigh: 0.3 cm; no evidence of reflux. Mid thigh: 0.2 cm; no evidence of reflux. Above knee: 0.3 cm; no evidence of reflux. At knee: 0.2 cm; no evidence of reflux. Below knee: 0.2 cm; greater than 0.3 seconds of reflux. Mid calf: 0.1 cm; no evidence of reflux. Ankle: 0.1 cm; no evidence of reflux. DUPLICATED GREAT SAPHENOUS VEIN: Medial: 0.6 cm at the junction; no reflux. SMALL SAPHENOUS VEIN: Saphenopopliteal junction: 0.3 cm; no evidence of reflux. Mid calf: 0.4 cm; 0.2 seconds of reflux. Distal calf: 0.3 cm; greater than 2 seconds of reflux. VEIN OF GIACOMINI: None Imaged. PERFORATORS: None Imaged VARICOSITIES: None Imaged 3. DEEP VENOUS ULTRASOUND OF THE LEFT LOWER EXTREMITY: Common Femoral Vein: Compressible, normal respiratory variation and augmented flow. Femoral vein: Compressible, normal color flow and augmentation. Popliteal Vein: Compressible, normal augmentation. Deep Reflux: There is reflux within the common femoral and femoral veins measuring 0.5 and 0.6 cm respectively. There is no evidence of a Sidhu's cyst. 4. SUPERFICIAL ULTRASOUND WITH DOPPLER OF LEFT LOWER EXTREMITY GREAT SAPHENOUS VEIN: Saphenofemoral junction: 0.5 cm; 0.38 seconds of reflux. Proximal thigh: 0.6 cm; no evidence of reflux. Mid thigh: 0.4 cm; no evidence of reflux. Above knee: 0.2 cm; no evidence of reflux. At knee: 0.1 cm; no evidence of reflux. Below knee: 0.2 cm; no evidence of reflux. Mid calf: 0.3 cm; no evidence of reflux. Ankle: 0.3 cm; no evidence of reflux. DUPLICATED GREAT SAPHENOUS VEIN: None SMALL SAPHENOUS VEIN: Saphenopopliteal junction: 0.6 cm; no evidence of reflux. Mid calf: 0.4 cm; greater than 2.1 seconds of reflux. Distal calf: 0.3 cm; greater than 1.7 seconds of reflux. VEIN OF GIACOMINI: None Imaged. PERFORATORS: None Imaged VARICOSITIES: Proximal thigh: 0.3 cm; greater than 0.8 seconds of reflux. Mid thigh: 0.4 cm; no reflux. Proximal calf: 0.3 cm; no reflux. US/US venous duplex LE BI IMPRESSION: 1. Bilateral small saphenous venous insufficiency. 2. Left lower extremity varicosities. A varicosity within the left proximal thigh demonstrates reflux. 3. No evidence of DVT. 4. Evidence of deep venous reflux involving the left common femoral and femoral veins.
== END 2020-10-27 10:26 | disposition home or self-care (01) ==
LOC: HO.US 10:25
PROVIDERS: Visit Provider Surgery Vascular Surgery
DX: I83.12 Varicose veins of left lower extremity with inflammation (principal)
CPT/HCPCS: 93970

== ENCOUNTER → 2020-11-02 09:28 | Outpatient (BNVA) | payer MEDICAID, SELFPAY | PROVIDERS: PCP Internal Medicine; Visit Provider Internal Medicine | DX: I82.403 Acute embolism and thrombosis of unspecified deep veins of lower extremity, bilateral (principal); Z51.81 Encounter for therapeutic drug level monitoring; Z79.01 Long term (current) use of anticoagulants | CPT/HCPCS: 85610; 99211 ==

== ENCOUNTER → 2020-11-03 09:45 | Outpatient (BNVA) | payer MEDICAID, SELFPAY | PROVIDERS: PCP Internal Medicine; Visit Provider Surgery Vascular Surgery | DX: I83.12 Varicose veins of left lower extremity with inflammation (principal) | CPT/HCPCS: 99212 ==

== ENCOUNTER 2020-11-09 11:33 | Day surgery (SDC) | payer MEDICAID, SELFPAY ==
[2020-11-04 14:19] VITALS: BMI 34.8
--- NOTE | 2020-11-06 13:07 | MHC.SHP ---
Pre-Procedural Eval Section B Chief Complaint: Umbilical Hernia Allergies: Allergies Allergy/AdvReac Type Severity Reaction Status Date / Time aspirin [ASPIRIN] Allergy Intermediate CAN'T Verified 11/04/20 14:27 TAKE- ON WARFARIN Plan I have reviewed the history and physical and performed a pertinent physical examination on my patient. No changes have occurred unless specified.
[2020-11-09] VITALS (14 sets, daily range): BP systolic 118–169; BP diastolic 66–100; PULSE 74–112; RESP 16–20; TEMP 37–37.5; O2SAT 92–100
[2020-11-09] MEDS: Lactated Ringers 1,000 ML 20 ML IVCONT (12:00)
[2020-11-09 12:11] LABS: COVID-19 Test Negative (Negative); IDNOW Serial# 9DD0AD1C
--- NOTE | 2020-11-09 12:14 | PC.NURSE ---
md ruano aware of patients oral temp for 99.5. patient denies coughing or being near anybody who is sick.
[2020-11-09 12:19] LABS: INTERNATIONAL NORM RATIO 1.1 (0.9-1.1); Prothrombin Time 12.9 SEC (10.8-13.0)
--- NOTE | 2020-11-09 12:24 | P.CONAN_ITS ---
[facility] Active Problems Active Problems: All Active Problems (Updated 11/04/20 @ 14:24 by Sasha davis) Current use of anticoagulant therapy (Acute) Ventral hernia (Acute) Umbilical hernia (Acute) Preoperative examination (Acute) Shortness of breath (Acute) Varicose veins of left lower extremity with inflammation (Acute) Chronic venous insufficiency (Acute) PAD (peripheral artery disease) (Acute) Stress incontinence (Acute) Atrial fibrillation (Acute) Hyperlipidemia (Acute) Bipolar 1 disorder (Acute) Past Medical History Medical History Atrial fibrillation Bipolar 1 disorder Chronic venous insufficiency Diverticulosis History of DVT (deep vein thrombosis) History of pulmonary embolism Hyperlipidemia PAD (peripheral artery disease) Stress incontinence Family History Family History Mother No problems noted. Father No problems noted. Surgical History Surgical History History of cystoscopy History of lithotripsy History of surgery Hx of heart surgery Social History Social History Alcohol intake: never Smoking Status: Current every day smoker Packs Per Day: 1 Cigarettes Per Day: 20.0 Years Smoked: 3 Advance Directives Information Provided: No Meds Allergies Allergy/AdvReac Type Severity Reaction Status Date / Time aspirin [ASPIRIN] Allergy Intermediate CAN'T Verified 11/04/20 14:27 TAKE- ON WARFARIN Home Medications Medication Instructions Recorded Confirmed Last Taken Type Saccharomyces boulardii 250 mg 250 mg PO BID 10/11/20 11/04/20 Unknown History capsule acetaminophen 325 mg capsule 325 mg PO QID PRN 10/11/20 10/11/20 Unknown History acetaminophen 650 mg 650 mg PO Q12H PRN 10/11/20 10/11/20 Unknown History tablet,extended release amitriptyline 50 mg tablet 50 mg PO DAILY 10/11/20 11/04/20 Unknown History atorvastatin 40 mg tablet 40 mg PO DAILY 10/11/20 11/04/20 Unknown History brexpiprazole 1 mg tablet 1 mg PO DAILY 10/11/20 11/04/20 11/09/20 06:00 History buspirone 7.5 mg tablet 7.5 mg PO BID 10/11/20 11/04/20 11/09/20 06:00 History clonazepam 0.5 mg tablet 0.25 mg PO TID PRN tab 10/11/20 11/04/20 11/09/20 06:00 History escitalopram oxalate 20 mg tablet 20 mg PO DAILY 10/11/20 11/04/20 11/09/20 06:00 History famotidine 20 mg tablet 20 mg PO BEDTIME 10/11/20 11/04/20 11/09/20 06:00 History folic acid 0.8 mg capsule 0.8 mg PO DAILY 10/11/20 11/04/20 Unknown History hydroxyzine HCl 25 mg tablet 25 mg PO BEDTIME 10/11/20 11/04/20 Unknown History melatonin 5 mg capsule 5 mg PO BEDTIME cap 10/11/20 11/04/20 Unknown History ramelteon 8 mg tablet 8 mg PO BEDTIME 10/11/20 11/04/20 Unknown History topiramate 100 mg tablet 100 mg PO BEDTIME 10/11/20 11/04/20 Unknown History warfarin 5 mg tablet 5 mg PO DAILY tab 10/11/20 11/04/20 Unknown History Exam Exam Date and Time: November 09, 2020 1224 Height,Weight and Vital Signs: Height 5 ft Weight 80.83 kg Last Vital Signs Temp 99.5 F 11/09/20 12:06 Pulse 89 11/09/20 12:06 Resp 20 11/09/20 12:06 BP 138/99 H 11/09/20 12:06 Pulse Ox 93 11/09/20 12:06 Pertinent Lab Results Pertinent Lab Results: Laboratory Tests 11/09/20 11/09/20 11:40 11:52 PT 12.9 D INR 1.1 COVID-19 ([place]) Negative COVID-19 Clin Com See Note Airway Mallampati Class: III TM Dist: >3cm Neck ROM: Full Heart: RRR Lungs: CTA
--- NOTE | 2020-11-09 15:30 | P.BOP_ITS ---
Brief Operative Note Date of Service: 11/09/20 Pre-op diagnosis: Multi component ventral hernia Post-op diagnosis: same Procedure: Laparoscopic repair of multicomponent ventral hernia with mesh Implants: Bard 10 x [address] mesh with the Echo positioning System Surgeon: Lis Julian MD Anesthesia: GETA Cooling Machine Operator: Ayala Quiles Estimated blood loss (mL): 5 Pathology: none sent Condition: stable Disposition: PACU
--- NOTE | 2020-11-09 15:32 | P.OP_ITS ---
Operative Note Operative Note Date of Service: 11/09/20 Narrative: Patient was brought into the operating room placed on the operating room table in supine position. General anesthesia was induced. The abdomen was prepped and draped in normal sterile fashion using ChloraPrep. Patient received 2 g of IV Kefzol preoperatively. The left arm was tucked next to the patient. A CT time-out was performed. Next a mixture of 1% lidocaine with epinephrine and 0.25% Marcaine plain was used to anesthetize the planned incision site in left upper quadrant. A 11. Scalpel used to make a 5 mm left upper quadrant transverse surgical incision through which a Veress needle was placed intra-abdominal. A saline drop test was used to confirm that the Veress needle was intra-abdominally. The abdomen was insufflated to 15 mm of mercury. Next a Optiview technique was used to place a 5 mm port in the left upper quadrant. A 5 mm 30 degree laparoscopic was introduced into the abdomen abdominal cavity was surveyed. There was a falciform hernia with falciform fat herniated into this defect that was seen. No other hernias were visualized on initial inspection. We placed an additional 5 mm port in the patient's left lateral mid abdomen under direct vision. We then switched out the left upper quadrant 5 mm port to a 12 mm port. We then used a LigaSure device to take down the falciform ligament thereby visualizing the entirety of the fascia on the abdominal wall. We were able to see 2 fascial defects after we reduced the falciform fat from within the superior most hernia defect. Both hernias were about 3 cm in size and only had preperitoneal fat and falciform within them. Once the fat was completely removed from the hernia defect we measured the size of the mesh that would be needed to provide greater than 5 cm overlap of the defect edges circumferentially. We chose a [address] with [employer] System mesh. We marked the position of the mesh on the outside of the abdominal wall using a marking pen. We then rolled up the mesh and placed it intra-abdominally through the 12 mm port. We used a suture Passer to bring up the mesh onto the abdominal wall centrally located covering the 2 hernia defects so that there was greater than 5 cm overlap circumferentially at the edges of all hernia defects. Prior to tacking the mesh we put the pressure down in abdomen to 10 mm of mercury. We then used a capsure Tacker to tack the mesh in place in the superior inferior and lateral positions using a total of 4 tacks. We then removed the Echo positioning System through the 12 mm port in its entirety. We completed the tacking of the mesh at the edges circumferentially using the Tacker. We placed an inner crown of tacks surrounding the hernia defects. The mesh was well apposed the abdominal wall there was no redundancy in the mesh and it was flat. There was no evidence of any bleeding. We then removed the 5 mm port from the left lateral abdomen and desufflated the abdomen through the 12 mm port removed the last port. We reapproximated both skin incisions with a 4-0 Monocryl subcuticular stitch. We cleaned and dried the skin and applied Dermabond to the skin incisions. We did instill more local anesthetic into all incision sites. All counts were correct at the end of the case there were no complications. The patient was awake and in stable condition prior to extubation and transfer to the recovery room.
[2020-11-09] MEDS: fentaNYL citrate/PF 100 MCG/2 ML VIAL 25 MCG IVPUSH ×5 (15:40→16:35)
[2020-11-09] MEDS: oxyCODONE HCl Immed Release 5 MG TABLET PO (16:00)
== END 2020-11-09 17:30 | disposition home or self-care (01) ==
PROVIDERS: PCP Internal Medicine; Visit Provider Surgery
PROC: 0WQF4ZZ Repair Abdominal Wall, Percutaneous Endoscopic Approach (ICD-10-PCS; CPT 49652; principal; 2020-11-09 13:20)
DX: K42.9 Umbilical hernia without obstruction or gangrene (principal); K43.9 Ventral hernia without obstruction or gangrene; R06.02 Shortness of breath; I48.91 Unspecified atrial fibrillation; Z86.718 Personal history of other venous thrombosis and embolism; Z86.711 Personal history of pulmonary embolism; Z79.01 Long term (current) use of anticoagulants; Z79.899 Other long term (current) drug therapy; Z88.8 Allergy status to other drugs, medicaments and biological substances; F17.210 Nicotine dependence, cigarettes, uncomplicated
CPT/HCPCS: 49652; 36415; 85610; 87635; C1781; J0131; J0690; J1100; J2250; J2405; J3010

== ENCOUNTER → 2020-11-14 14:12 | Outpatient (BNVA) | payer MEDICAID, SELFPAY | PROVIDERS: PCP Internal Medicine; Visit Provider Internal Medicine | DX: I82.403 Acute embolism and thrombosis of unspecified deep veins of lower extremity, bilateral (principal); Z51.81 Encounter for therapeutic drug level monitoring; Z79.01 Long term (current) use of anticoagulants | CPT/HCPCS: 85610; 99211 ==

== ENCOUNTER → 2020-11-18 09:16 | Outpatient (BNVA) | payer MEDICAID, SELFPAY | PROVIDERS: PCP Internal Medicine; Visit Provider Internal Medicine | DX: I82.403 Acute embolism and thrombosis of unspecified deep veins of lower extremity, bilateral (principal); Z79.01 Long term (current) use of anticoagulants; Z51.81 Encounter for therapeutic drug level monitoring | CPT/HCPCS: 85610; 99211 ==

== ENCOUNTER → 2020-11-24 13:51 | Outpatient (BNVA) | payer MEDICAID, SELFPAY | PROVIDERS: PCP Internal Medicine; Visit Provider Surgery | DX: K04.7 Periapical abscess without sinus (principal); Z79.01 Long term (current) use of anticoagulants; Z79.2 Long term (current) use of antibiotics | CPT/HCPCS: 85610; 99211 ==

== ENCOUNTER → 2020-12-01 09:53 | Outpatient (BNVA) | payer MEDICAID, SELFPAY | PROVIDERS: PCP Internal Medicine; Visit Provider Surgery | DX: Z98.890 Other specified postprocedural states (principal); Z87.19 Personal history of other diseases of the digestive system | CPT/HCPCS: 99212 ==

== ENCOUNTER → 2020-12-05 16:09 | Outpatient (BNVA) | payer MEDICAID, SELFPAY | PROVIDERS: PCP Internal Medicine; Visit Provider Internal Medicine | DX: I82.403 Acute embolism and thrombosis of unspecified deep veins of lower extremity, bilateral (principal); Z51.81 Encounter for therapeutic drug level monitoring; Z79.01 Long term (current) use of anticoagulants | CPT/HCPCS: 85610; 99211 ==

== ENCOUNTER → 2020-12-07 08:46 | Outpatient (BNVA) | payer MEDICAID, SELFPAY | PROVIDERS: PCP Internal Medicine; Visit Provider Internal Medicine | DX: I82.403 Acute embolism and thrombosis of unspecified deep veins of lower extremity, bilateral (principal); Z51.81 Encounter for therapeutic drug level monitoring; Z79.01 Long term (current) use of anticoagulants | CPT/HCPCS: 85610; 99211 ==

== ENCOUNTER → 2020-12-08 13:48 | Outpatient (BNVA) | payer MEDICAID, SELFPAY | PROVIDERS: PCP Internal Medicine; Visit Provider Internal Medicine | DX: I82.403 Acute embolism and thrombosis of unspecified deep veins of lower extremity, bilateral (principal); Z51.81 Encounter for therapeutic drug level monitoring; Z79.01 Long term (current) use of anticoagulants | CPT/HCPCS: 85610; 99211 ==

== ENCOUNTER → 2020-12-14 14:00 | Outpatient (BNVA) | payer MEDICAID, SELFPAY | PROVIDERS: PCP Internal Medicine; Visit Provider Internal Medicine | DX: I82.403 Acute embolism and thrombosis of unspecified deep veins of lower extremity, bilateral (principal); Z51.81 Encounter for therapeutic drug level monitoring; Z79.01 Long term (current) use of anticoagulants | CPT/HCPCS: 85610; 99211 ==

== ENCOUNTER → 2020-12-16 08:30 | Outpatient (BNVA) | payer MEDICAID, SELFPAY | PROVIDERS: PCP Internal Medicine; Visit Provider Surgery Vascular Surgery | DX: I83.12 Varicose veins of left lower extremity with inflammation (principal) | CPT/HCPCS: 36475 ==

== ENCOUNTER 2020-12-21 15:18 | Outpatient (REF) | payer MEDICAID, SELFPAY ==
--- NOTE | ~2020-12-21 | US_ITS ---
EXAMINATION: US VENOUS ULTRASOUND WITH DOPPLER LOWER EXTREMITY, LEFT CLINICAL INFORMATION: Post RFA of the small saphenous vein. Rule out DVT. Pain and swelling. COMPARISON: Previous exam November 01 TECHNIQUE: Ultrasound of the deep veins is performed from the hip to the calf with compression sonography and color and pulse Doppler assessment. Spectral analysis with color-flow imaging is performed. FINDINGS: There is normal venous compression and respiratory variation and augmented flow. The visualized common femoral vein, superficial femoral vein, profunda femoral vein, popliteal vein, and the trifurcation region shows no evidence of deep venous thrombosis. The left small saphenous vein is occluded. This is 2.7 cm from the saphenofemoral popliteal junction. US/US venous duplex LE LT IMPRESSION: No DVT demonstrated in the left lower extremity.
== END 2020-12-21 15:19 | disposition home or self-care (01) ==
LOC: HO.HMGCX 15:18
PROVIDERS: PCP Internal Medicine; Visit Provider Surgery Vascular Surgery
DX: M79.605 Pain in left leg (principal)
CPT/HCPCS: 85610; 93971; 99211

== ENCOUNTER 2020-12-25 16:58 | Emergency (ER) | payer MEDICAID, SELFPAY ==
[2020-12-25 17:29] VITALS: BP 147/87; PULSE 90; RESP 18; TEMP 36.9; O2SAT 96; BMI 29.4
[2020-12-25 18:04] LABS: Glucose Urine UA NEG (NEG); Leukocyte Esterase Urine 2+ (NEG); Nitrite Urine NEG (NEG); PH 6.5 (5.0-8.0); UACC Culture Trigger YES; Urine Blood 2+ (NEG); Urine Ketones NEG (NEG); Urine Protein TRACE MG/DL (NEG-TRACE)
[2020-12-25 18:05] LABS: Appearance Urine CLOUDY; Color Urine YELLOW
[2020-12-25 18:14] LABS: Bacteria Urine 1+ /LPF; Mucus Urine TRACE /LPF; Renal Epithelial Cells Urine TRACE /LPF; Squamous Epithelial Cell Urine 1+ /LPF; WBC Urine 50-75 /HPF (0-4)
--- NOTE | 2020-12-25 20:16 | ED.FEMALEGU ---
HPI - Female Genitourinary General Chief complaint: Urogenital-Female Stated complaint: burning upon urination Source: patient Mode of arrival: ambulatory Limitations: no limitations History of Present Illness HPI Narrative: 60-year-old female presents with 2 days of dysuria. States that she has had history of this in the past, which required a Joy catheter. At this time she does not report any fevers, chills, chest pain or pressure, palpitations, abdominal pain, abdominal distention, bladder distention, hematuria, nausea, diarrhea, constipation, and demons MD elicited complaint: dysuria and difficulty urinating Pertinent past history: recurrent UTIs Onset (ago): day(s) (2) Severity: moderate Severity scale (1-10): 5 Quality of pain: burning Consistency: intermittent Vaginal discharge: none Vaginal bleeding: none Urinary symptoms: Dysuria Exacerbating factors: urination Relieving factors: none Associated symptoms: denies other symptoms Treatment prior to arrival: none Patient : No Related Data Home Medications Medication Instructions Recorded Confirmed Saccharomyces boulardii 250 mg 250 mg PO BID 10/11/20 12/21/20 capsule amitriptyline 50 mg tablet 50 mg PO DAILY 10/11/20 12/21/20 atorvastatin 40 mg tablet 40 mg PO DAILY 10/11/20 12/21/20 brexpiprazole 1 mg tablet 1 mg PO DAILY 10/11/20 12/21/20 buspirone 7.5 mg tablet 7.5 mg PO BID 10/11/20 12/21/20 clonazepam 0.5 mg tablet 0.25 mg PO TID PRN tab 10/11/20 12/21/20 escitalopram oxalate 20 mg tablet 20 mg PO DAILY 10/11/20 12/21/20 famotidine 20 mg tablet 20 mg PO BEDTIME 10/11/20 12/21/20 folic acid 0.8 mg capsule 0.8 mg PO DAILY 10/11/20 12/21/20 hydroxyzine HCl 25 mg tablet 25 mg PO BEDTIME 10/11/20 12/21/20 melatonin 5 mg capsule 5 mg PO BEDTIME cap 10/11/20 12/21/20 ramelteon 8 mg tablet 8 mg PO BEDTIME 10/11/20 12/21/20 topiramate 100 mg tablet 100 mg PO BEDTIME 03/30/21 06/09/21 warfarin 5 mg tablet 5 mg PO DAILY tab 10/11/20 12/21/20 Previous Rx's Medication Instructions Recorded acetaminophen 1,000 mg PO Q6H PRN 7 Days #60 cap 11/09/20 nitrofurantoin monohyd/m-cryst 100 mg PO Q12H 7 Days #14 cap 12/25/20 [Macrobid] phenazopyridine [Pyridium] 200 mg PO TID PRN #6 tab 12/25/20 Allergies Allergy/AdvReac Type Severity Reaction Status Date / Time aspirin [ASPIRIN] Allergy Intermediate CAN'T Verified 12/16/20 10:56 TAKE- ON WARFARIN Review of Systems Review of Systems: Constitutional: No Fever, No Chills ENT/Mouth: No sore throat Eyes: No Eye Pain, No Swelling, No Redness Cardiovascular: No Chest Pain, No SOB Respiratory: No Cough, No Sputum, No Wheezing Gastrointestinal: No Nausea, no Vomiting, No Diarrhea, no abdominal pain Genitourinary: positive Dysuria, positive urinary frequency, no Hematuria, no Flank Pain, positive hesitancy Musculoskeletal: No joint pain, No Myalgias Skin: No Skin Lesions, No rash Neuro: No Weakness, No Numbness, No Headache Psych: No Anxiety/Panic, No Depression Heme/Lymph: No Bruising, No Lymphadenopathy Endocrine: No Polyuria, No Polydipsia Yes all other systems are reviewed and are negative [facility] Past Medical History Attestation statement: The following information was validated with the patient. Source: old records reviewed Medical History Atrial fibrillation Bipolar 1 disorder Chronic venous insufficiency Diverticulosis History of DVT (deep vein thrombosis) History of pulmonary embolism Hyperlipidemia PAD (peripheral artery disease) Stress incontinence Surgical History History of cystoscopy History of lithotripsy History of surgery History of ventral hernia repair Hx of heart surgery Family History Family History Mother No problems noted. Father No problems noted. Social History Social History Alcohol intake: never Cigarette Packs Per Day: 1 Cigarettes Per Day: 20.0 Years Smoked: 3 Advance Directives: No Patient : No Physical Exam Vital Signs: Vital Signs: Last Vital Signs Temp 98.6 F 12/25/20 20:22 Pulse 83 12/25/20 20:22 Resp 16 12/25/20 20:22 BP 131/83 12/25/20 20:22 Pulse Ox 98 12/25/20 20:22 Body Mass Index 29.4 Appearance: Alert. Oriented X3. No acute distress. Eyes: Pupils equal, round and reactive to light. ENT: Pharynx normal. Neck: Normal inspection. Neck supple. CVS: Normal heart rate and rhythm. Pulses normal. Respiratory: No respiratory distress. Breath sounds normal. Abdomen: Soft and nontender. Skin: Skin warm and dry. Normal skin color. Normal skin turgor. Extremities: No lower extremity edema. Neuro: No motor deficit. No sensory deficit. Course Course Course Narrative: 60-year-old female presents with dysuria for 2 days. She was able to produce an adequate urine sample, abdomen not distended, bladder not palpable. Urinalysis is positive for UTI, review of past records indicates that she has had prior E coli infections with susceptibility to Macrobid, Keflex, and Bactrim. She appears nontoxic, is afebrile. Will give Macrobid and Pyridium. Patient verbalized understanding of and agrees to plan of care discharge home. She will follow up with primary care as needed. MDM - Female Genitourinary Differential Diagnosis Differential diagnosis: Likely urinary tract infection Lab Data Labs: Lab Results 12/25/20 Range/Units 17:42 Urine Color YELLOW Urine Appearance CLOUDY Urine pH 6.5 (5.0-8.0) Ur Specific [place] 1.020 (1.005-1.025) Urine Protein TRACE (NEG-TRACE) MG/DL Urine Glucose (UA) NEG (NEG) MG/DL Urine Ketones NEG (NEG) MG/DL Urine Blood 2+ H (NEG) Urine Nitrite NEG (NEG) Ur Leukocyte Esterase 2+ H (NEG) Urine RBC 10-14 H (0) /HPF Urine WBC 50-75 H (0-4) /HPF Ur Squamous Epith Cells 1+ /LPF Ur Renal Epithelial Cell TRACE /LPF Urine Bacteria 1+ /LPF Urine Mucus TRACE /LPF Discharge Plan Discharge Clinical Impression: Urinary tract infection Patient Disposition: Home, Self-Care Instructions: Urinary Tract Infection in Women (ED) Additional Instructions: You evaluated for urinary symptoms. Urinalysis is positive for UTI. Please take Macrobid twice a day for the next 7 days. This is an antibiotic. Please use Pyridium to help with bladder spasms and pain. This medication will turn your urine bright orange. This is a normal side effect. Follow-up with primary care physician. Thank you for choosing this emergency department for evaluation. Please follow-up with primary care physician as needed. Return to the emergency department for any new, concerning, or worsening symptoms. Prescriptions: New nitrofurantoin monohyd/m-cryst [Macrobid] 100 mg capsule 100 mg PO Q12H 7 Days Qty: 14 RF: 0 phenazopyridine [Pyridium] 200 mg tablet 200 mg PO TID PRN (Reason: pain) Qty: 6 RF: 0 No Action acetaminophen 500 mg capsule 1,000 mg PO Q6H PRN (Reason: pain) 7 Days Qty: 60 RF: 0 amitriptyline 50 mg tablet 50 mg PO DAILY RF: 0 atorvastatin 40 mg tablet 40 mg PO DAILY RF: 0 escitalopram oxalate 20 mg tablet 20 mg PO DAILY RF: 0 folic acid 0.8 mg capsule 0.8 mg PO DAILY RF: 0 hydroxyzine HCl 25 mg tablet 25 mg PO BEDTIME RF: 0 ramelteon [Rozerem] 8 mg tablet 8 mg PO BEDTIME RF: 0 topiramate 100 mg tablet 100 mg PO BEDTIME RF: 0 buspirone 7.5 mg tablet 7.5 mg PO BID RF: 0 famotidine 20 mg tablet 20 mg PO BEDTIME RF: 0 Saccharomyces boulardii [Florastor] 250 mg capsule 250 mg PO BID RF: 0 Rexulti 1 mg tablet 1 mg PO DAILY RF: 0 clonazepam 0.5 mg tablet 0.25 mg PO TID PRN (Reason: Anxiety) RF: 0 melatonin 5 mg capsule 5 mg PO BEDTIME RF: 0 warfarin 5 mg tablet 5 mg PO DAILY RF: 0 Hold Instructions: Resume on 11/10/20. Discharge Date/Time: 12/25/20 21:12
[2020-12-25 20:22] VITALS: BP 131/83; PULSE 83; RESP 16; TEMP 37; O2SAT 98
[2020-12-25] MEDS: Phenazopyridine HCL 200 MG TABLET PO (21:08)
[2020-12-25] MEDS: Nitrofurantoin Monohyd/M-Cryst 100 MG CAPSULE PO (21:09)
== END 2020-12-25 21:12 | disposition home or self-care (01) ==
PROVIDERS: Emergency Provider Internal Medicine
DX: N39.0 Urinary tract infection, site not specified (principal); I48.91 Unspecified atrial fibrillation; Z86.718 Personal history of other venous thrombosis and embolism; Z79.01 Long term (current) use of anticoagulants
CPT/HCPCS: 81001; 81003; 87086; 99283; 99284

== ENCOUNTER → 2021-01-04 08:45 | Outpatient (BNVA) | payer MEDICAID, SELFPAY | PROVIDERS: PCP Internal Medicine; Visit Provider Internal Medicine | DX: I82.403 Acute embolism and thrombosis of unspecified deep veins of lower extremity, bilateral (principal); Z51.81 Encounter for therapeutic drug level monitoring; Z79.01 Long term (current) use of anticoagulants | CPT/HCPCS: 85610; 99211 ==

== ENCOUNTER → 2021-01-05 13:39 | Outpatient (BNVA) | payer MEDICAID, SELFPAY | PROVIDERS: PCP Internal Medicine; Visit Provider Surgery | DX: Z98.890 Other specified postprocedural states (principal); Z87.19 Personal history of other diseases of the digestive system | CPT/HCPCS: 99212 ==

== ENCOUNTER → 2021-01-12 09:00 | Outpatient (BNVA) | payer MEDICAID, SELFPAY | PROVIDERS: PCP Internal Medicine; Visit Provider Surgery Vascular Surgery | DX: I83.12 Varicose veins of left lower extremity with inflammation (principal) | CPT/HCPCS: 99212 ==

== ENCOUNTER → 2021-01-18 08:45 | Outpatient (BNVA) | payer MEDICAID, SELFPAY | PROVIDERS: PCP Internal Medicine; Visit Provider Internal Medicine | DX: I82.403 Acute embolism and thrombosis of unspecified deep veins of lower extremity, bilateral (principal); Z51.81 Encounter for therapeutic drug level monitoring; Z79.01 Long term (current) use of anticoagulants | CPT/HCPCS: 85610; 99211 ==

== ENCOUNTER → 2021-02-02 09:41 | Outpatient (BNVA) | payer MEDICAID, SELFPAY | PROVIDERS: PCP Internal Medicine; Visit Provider Internal Medicine | DX: I82.403 Acute embolism and thrombosis of unspecified deep veins of lower extremity, bilateral (principal); Z51.81 Encounter for therapeutic drug level monitoring; Z79.01 Long term (current) use of anticoagulants | CPT/HCPCS: 85610; 99211 ==

== ENCOUNTER 2021-03-04 16:58 | Emergency (ER) | payer MEDICAID, SELFPAY ==
--- NOTE | ~2021-03-04 | CT_ITS ---
EXAMINATION: CT ABDOMEN AND PELVIS WITH CONTRAST CLINICAL INFORMATION: Lower abdominal pain, diarrhea. COMPARISON: CT scan of the abdomen and pelvis dated 10/07/2020 and 04/27/2020. TECHNIQUE: Multidetector CT volumetric acquisition of the abdomen and pelvis was performed after the administration of 85 mL of intravenous Omnipaque 350. The data set was reformatted in the sagittal and coronal planes and reviewed on an independent workstation. This CT examination was performed using dose optimization techniques as appropriate, variously including the following: *Automated exposure control *Adjustment of mA and/or kV according to patient size (this includes techniques or standardized protocols for targeted exams where dose is matched to indication/reason for exam; i.e. extremities or head) *Use of iterative reconstruction technique DLP: 539 mGy-cm. FINDINGS: LOWER CHEST: Included lung bases unremarkable. LIVER, GALLBLADDER, BILIARY TREE: Liver normal size and attenuation. No focal cystic or solid mass or intra-or extrahepatic ductal dilatation. Hepatic and portal veins patent. Gallbladder partially distended and within normal limits. PANCREAS: Normal. No ductal dilatation, mass, or surrounding stranding. SPLEEN: Normal size and appearance. Splenic vein patent. ADRENAL GLANDS: Right adrenal gland normal. Left adrenal gland again shows a exophytic 1.5 x 2.1 cm low-attenuation mass with mean attenuation values of -4.6 Hounsfield units, unchanged from prior studies and most consistent with a benign cystic mass. KIDNEYS: There is a chronic small subcapsular fluid collection along the anterior margin of the mid right kidney, similar to 10/07/2020 and smaller compared to 04/27/2020, consistent with patient's history of resolving perinephric hematoma. Prominent lobulation of the left kidney versus small peripheral cortical defects again seen, unchanged. Kidneys bilaterally symmetric in size and function. No suspicious new or enlarging focal mass, hydronephrosis, nephrolithiasis or perinephric stranding. URETERS AND BLADDER: Ureters decompressed and within normal limits. Diffuse mild bladder wall thickening is seen, suboptimally assessed due to underdistention of the bladder. No bladder calculi. PELVIC ORGANS: The patient is status post hysterectomy. Small amount of gas is seen within the vagina, likely related to exogenous introduction. Ovaries not visualized and likely also surgically absent versus markedly atrophic. GASTROINTESTINAL TRACT: A small retrocardiac hiatal hernia is again seen, containing the gastric fundus. Scattered colonic diverticula are noted. No evidence of acute diverticulitis.. Small and large bowel loops decompressed. Appendix in right lower quadrant normal. ABDOMINAL WALL: Midline anterior abdominal wall hernia mesh is seen in place. Small rounded deep subcutaneous structure in the midline of the lower abdomen likely represents an area of injection granuloma. LYMPHOVASCULAR STRUCTURES: Abdominal aorta normal in caliber. No periaortic collections. No abdominal or pelvic adenopathy or free fluid collection. BONES: A TENS unit is seen in the posterior right buttock region with leads extending into the presacral space. Purdum along the anterior margin of the L3 vertebral body again noted. Bony structures unremarkable. CT/CT abdomen pelvis w con IMPRESSION: 1. Scattered colonic diverticulosis with no evidence of acute diverticulitis. 2. Diffuse thickening of the bladder wall is noted, perhaps due to underdistention or in the correct clinical setting due to cystitis. Clinical correlation requested. 3. Long-term stable fluid attenuation left adrenal mass and slowly resorbing chronic small subcapsular fluid collection along the anterior margin of the mid right kidney.
[2021-03-04 17:04] VITALS: BP 128/88; PULSE 91; RESP 16; TEMP 36.9; O2SAT 99; BMI 35.2
--- NOTE | 2021-03-04 17:32 | ED_ITS ---
HPI - Abdominal Pain General Chief Complaint: Nausea/Vomiting/Diarrhea <JOSE Major Last Filed: 03/05/21 11:04> Stated Complaint: abd pain <JOSE Major Last Filed: 03/05/21 11:04> Time Seen by Provider: 03/04/21 17:09 <JOSE Major Last Filed: 03/05/21 11:04> Source: patient <JOSE Major Last Filed: 03/05/21 11:04> Mode of arrival: ambulatory <JOSE Major Last Filed: 03/05/21 11:04> Limitations: no limitations <JOSE Major Last Filed: 03/05/21 11:04> History of Present Illness HPI narrative: 61-year-old female presents for 3 days of lower abdominal pain and diarrhea. Patient has had constant bilateral lower abdominal pain 10/10 that radiates to her back. Patient has had multiple episodes of diarrhea. She noticed blood in her stool 1 week ago, bright red blood. Patient is anticoagula olman for atrial fibrillation. No fevers, no vomiting, she has had a hernia repair but that is her only abdominal surgery. No chest pain, no shortness of breath. No dysuria. No blood in her urine. Patient is not vaccinated for COVID, but states she would like to be vaccinated. Patient has not had any recent antibiotic use, no travel, not eaten any bad foods, no sick contacts, no unusual water sources. Patient has a history of peripheral artery disease, DVT, and pulmonary embolism. <JOSE Major Last Filed: 03/05/21 11:04> MD elicited complaint: abdominal pain <JOSE Major Last Filed: 03/05/21 11:04> Onset (ago): day(s) (3) <JOSE Major Last Filed: 03/05/21 11:04> Pain Consistency: constant <JOSE Major Last Filed: 03/05/21 11:04> Location: RLQ and LLQ <JOSE Major Last Filed: 03/05/21 11:04> Severity: severe <JOSE Major Last Filed: 03/05/21 11:04> Pain scale (0-10): 10 <JOSE Major - Last Filed: 03/05/21 11:04> Quality: cramping <JOSE Major Last Filed: 03/05/21 11:04> Radiation: back <JOSE Major Last Filed: 03/05/21 11:04> Migration to: no migration <JOSE Major Last Filed: 03/05/21 11:04> Exacerbating factors: nothing <JOSE Major Last Filed: 03/05/21 11:04> Relieving factors: nothing <JOSE Major Last Filed: 03/05/21 11:04> Associated symptoms: nausea and diarrhea <JOSE Major Last Filed: 03/05/21 11:04> Related Data Home Medications: Home Medications Medication Instructions Recorded Confirmed Saccharomyces boulardii 250 mg 250 mg PO BID 10/11/20 02/02/21 capsule (Florastor) amitriptyline 50 mg tablet 50 mg PO DAILY 10/11/20 02/02/21 atorvastatin 40 mg tablet 40 mg PO DAILY 10/11/20 02/02/21 brexpiprazole 1 mg tablet (Rexulti) 1 mg PO DAILY 10/11/20 02/02/21 buspirone 7.5 mg tablet 7.5 mg PO BID 10/11/20 02/02/21 clonazepam 0.5 mg tablet 0.25 mg PO TID PRN tab 10/11/20 02/02/21 escitalopram oxalate 20 mg tablet 20 mg PO DAILY 10/11/20 02/02/21 famotidine 20 mg tablet 20 mg PO BEDTIME 10/11/20 02/02/21 folic acid 0.8 mg capsule 0.8 mg PO DAILY 10/11/20 02/02/21 hydroxyzine HCl 25 mg tablet 25 mg PO BEDTIME 10/11/20 02/02/21 melatonin 5 mg capsule 5 mg PO BEDTIME cap 10/11/20 02/02/21 ramelteon 8 mg tablet (Rozerem) 8 mg PO BEDTIME 10/11/20 02/02/21 topiramate 100 mg tablet 100 mg PO BEDTIME 10/11/20 02/02/21 warfarin 5 mg tablet 5 mg PO DAILY tab 10/11/20 02/02/21 Previous Rx's Medication Instructions Recorded acetaminophen 500 mg capsule 1,000 mg PO Q6H PRN 7 Days #60 cap 11/09/20 nitrofurantoin 100 mg PO Q12H 7 Days #14 cap 12/25/20 monohydrate/macrocrystals 100 mg capsule (Macrobid) phenazopyridine 200 mg tablet 200 mg PO TID PRN #6 tab 12/25/20 (Pyridium) ondansetron HCl 4 mg tablet 4 mg PO Q8H PRN #7 tab 03/04/21 (Zofran) <JOSE Major Last Filed: 03/05/21 11:04> Allergies/Adverse Reactions: Allergies Allergy/AdvReac Type Severity Reaction Status Date / Time aspirin [ASPIRIN] Allergy Intermediate CAN'T Verified 01/12/21 09:07 TAKE- ON WARFARIN <JOSE Major Last Filed: 03/05/21 11:04> Review of Systems Constitutional: Denies chills, Denies fatigue, Denies fever(s), Denies headache(s), Denies malaise and Denies weakness <JOSE Major Last Filed: 03/05/21 11:04> Eyes: Denies diplopia <JOSE Major Last Filed: 03/05/21 11:04> Denies otalgia, Denies headache(s), Reports mouth pain and Denies sore throat <JOSE Major Last Filed: 03/05/21 11:04> Cardiovascular: Denies chest pain, Denies syncope, Denies leg edema, Denies lightheadedness and Denies dyspnea <JOSE Major Last Filed: 03/05/21 11:04> Respiratory: Denies chest congestion, Denies cough and Denies dyspnea <JOSE Major Last Filed: 03/05/21 11:04> Gastrointestinal: Reports abdominal pain, Reports hematochezia, Denies coffee ground emesis, Denies constipation, Reports diarrhea, Reports nausea and Denies vomiting <JOSE Major Last Filed: 03/05/21 11:04> Genitourinary: Denies hematuria, Denies difficulty voiding, Denies dysuria, Denies urinary hesitancy, Denies urinary urgency and Denies vaginal discharge <JOSE Major - Last Filed: 03/05/21 11:04> Musculoskeletal: Reports back pain <JOSE Major - Last Filed: 03/05/21 11:04> Skin/Breast: Denies erythema and Denies rash <JOSE Major - Last Filed: 03/05/21 11:04> Denies syncope, Denies headache(s) and Denies weakness <JOSE Major - Last Filed: 03/05/21 11:04> Psychiatric: Reports no additional psychiatric complaints <JOSE Major - Last Filed: 03/05/21 11:04> Endocrine: Denies fatigue <JOSE Major - Last Filed: 03/05/21 11:04> Physical Exam Vital Signs: Vital Signs: Last Vital Signs Temp 98.7 F 03/04/21 21:49 Pulse 95 03/04/21 21:49 Resp 03/04/21 21:49 BP 100/67 03/04/21 21:49 Pulse Ox 93 03/04/21 21:49 Body Mass Index 35.2 <JOSE Major - Last Filed: 03/05/21 11:04> Vital Signs: Last Vital Signs Temp 98.7 F 03/04/21 21:49 Pulse 95 03/04/21 21:49 Resp 03/04/21 21:49 BP 100/67 03/04/21 21:49 Pulse Ox 93 03/04/21 21:49 Body Mass Index 35.2 <Lakeisha Foster NP - Last Filed: 03/04/21 22:10> Const: General: alert, awake and ill appearing chronically <JOSE Major - Last Filed: 03/05/21 11:04> Nutritional Appearance: obese morbidly obese <JOSE Major - Last Filed: 03/05/21 11:04> Orientation/consciousness: patient oriented x3 <JOSE Major - Last Filed: 03/05/21 11:04> Limitations: no limitations <JOSE Major - Last Filed: 03/05/21 11:04> HENMT: Head: Yes normal to inspection <JOSE Major - Last Filed: 03/05/21 11:04> Ears: hearing grossly normal bilaterally <Earnestineedil Daughertyfidel [facility] Last Filed: 03/05/21 11:04> Eyes: Pupils: Equal, round and reactive pupils present <Earnestine Garrett [facility] Last Filed: 03/05/21 11:04> EOM: EOMs intact bilaterally <Earnestine Garrett [facility] Last Filed: 03/05/21 11:04> Direct Ophthalmoscopy: normal light reflex <Earnestine Garrett [facility] Last Filed: 03/05/21 11:04> Neck: Neck: Yes full ROM, Yes no meningeal signs, Yes trachea midline and Yes supple <Earnestine Garrett [facility] Last Filed: 03/05/21 11:04> Resp: Effort & Inspection: normal respiratory effort and able to speak in complete sentences <Earnestine Garrett [facility] Last Filed: 03/05/21 11:04> Auscultation: clear to auscultation bilaterally, no crackles, no rales, no rhonchi and no wheezes <Earnestine Garrett [facility] Last Filed: 03/05/21 11:04> Cardio: Rate: regular rate <Earnestine Garrett [facility] Last Filed: 03/05/21 11:04> Rhythm: regular rhythm <Earnestine Garrett [facility] Last Filed: 03/05/21 11:04> Heart sounds: S1 normal heart sound present and S2 normal heart sound present <Earnestine Garrett [facility] Last Filed: 03/05/21 11:04> GI: Inspection: Yes Abdominal panniculus present and Yes obesity <Earnestine Garrett [facility] Last Filed: 03/05/21 11:04> Palpation (GI): Soft to palpation, not firm, Tenderness to palpation present (GI) in the LLQ, in the RLQ, in the LUQ and in the RUQ, Guarding due to palpation present (GI) in the LLQ and in the RLQ and not rigid <Earnestine Garrett [facility] Last Filed: 03/05/21 11:04> Percussion: Yes normal to percussion <Earnestine Garrett [facility] Last Filed: 03/05/21 11:04> Auscultation: normal bowel sounds <Earnestine Garrett [facility] Last Filed: 03/05/21 11:04> Rectal Exam - Female: visual inspection normal, normal sphincter tone, heme positive stool, No fecal impaction, No Lesions present (GI) and No Anal fissure(s) present <Earnestine Garrett [facility] Last Filed: 03/05/21 11:04> : General: Yes no CVA tenderness <Earnestine Garrett [facility] Last Filed: 03/05/21 11:04> Back/Spine/Pelvis: Back: no CVA tenderness <Earnestine Garrett [facility] Last Filed: 03/05/21 11:04> Skin: General skin exam: no rashes or lesions noted <Earnestine Garrett [facility] Last Filed: 03/05/21 11:04> Neuro: General: patient oriented x3 and no meningeal signs <Earnestine Garrett [facility] Last Filed: 03/05/21 11:04> Cranial nerves: Yes Equal, round and reactive pupils present <Earnestine Garrett [facility] Last Filed: 03/05/21 11:04> Extrem: General: Yes normal to inspection, Yes full ROM and Yes capillary refill normal <Earnestine Garrett [facility] Last Filed: 03/05/21 11:04> Psych: Appearance: disheveled <JOSE Major Last Filed: 03/05/21 11:04> Mental Status: mental status grossly normal <Earnestine Garrett [facility] Last Filed: 03/05/21 11:04> Speech and movement: Normal speech and movement present <Earnestine Garrett [facility] Last Filed: 03/05/21 11:04> Affect: Depressed mood present <Earnestine Garrett [facility] Last Filed: 03/05/21 11:04> Attitude: cooperative <Earnestine Garrett [facility] Last Filed: 03/05/21 11:04> Course Course Course Narrative: 61-year-old obese female presents for 3 days of bilateral lower abdominal pain with diarrhea and nausea. Patient reports she saw bright red blood in her stool 1 week ago. No fevers. On exam, patient is afebrile with stable vitals, is disheveled. Patient is tender and guarding in her lower abdomen. Rectal exam shows no melena or hematochezia. Guaiac heme positive. Platelet count 95, patient's platelet count was 204 in September of 2020. Patient has an albumin corrected calcium of 8.4, normal. Normal lipase, stable H&H. PTT elevated, awaiting INR. INR 3.1 Signed pt out to JOSE Foster, awaiting CT results. <JOSE Major - Last Filed: 03/05/21 11:04> 61-year-old obese female presents for 3 days of bilateral lower abdominal pain with diarrhea and nausea. Patient reports she saw bright red blood in her stool 1 week ago. No fevers. On exam, patient is afebrile with stable vitals, is disheveled. Patient is tender and guarding in her lower abdomen. Rectal exam shows no melena or hematochezia. Guaiac heme positive. Platelet count 95, patient's platelet count was 204 in September of 2020. Patient has an albumin corrected calcium of 8.4, normal. Normal lipase, stable H&H. PTT elevated, awaiting INR. INR 3.1 Signed pt out to JOSE Foster, awaiting CT results. CT scan of abdomen and pelvis are negative for acute findings. Shows chronic findings of kidney hematoma which is improving and adrenal fluid collection. 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 Will have patient electric shovel operator follow-up with primary care physician for repeat lab values in 2 weeks and for elevated INR of 3.1. Restoration Officer will call Coumadin clinic for adjustment. <Lakeisha Foster NP - Last Filed: 03/04/21 22:10> MDM - Abdominal Pain Medical Records Attestation: I reviewed the patient's medical records. <Lakeisha Foster NP - Last Filed: 03/04/21 22:10> Lab Data Attestation: I reviewed the patient's lab results. <Lakeisha Foster NP - Last Filed: 03/04/21 22:10> Result diagrams: : 03/04/21 18:00 03/04/21 18:00 <JOSE Major - Last Filed: 03/05/21 11:04> Labs: Lab Results 03/04/21 03/04/21 03/04/21 Range/Units 18:00 18:00 18:09 WBC 5.7 (4.8-10.8) X10*3/uL RBC 4.36 (4.20-5.50) X10*6/uL Hgb 13.1 (12.0-16.0) g/dl Hct 39.8 (37-47) % MCV 91.3 (80-98) fL MCH 30.0 (27.0-33.0) pg MCHC 32.9 (31.0-35.0) g/dl RDW 13.2 (11.0-16.0) % Plt Count 95 L D (160-400) X10*3/uL MPV 12.9 H (9.4-12.3) fL Immature Gran % (Auto) 0.4 (0.0-0.4) % Neut % (Auto) 71.7 (45-73) % Lymph % (Auto) 19.2 L (20-40) % [place] % (Auto) 7.6 (2-11) % Eos % (Auto) 0.9 (0-4) % Baso % (Auto) 0.2 (0-2) % Lymph # (Auto) 1.1 L (1.2-4.9) X10*3/uL [place] # (Auto) 0.4 (0.1-1.2) X10*3/uL Eos # (Auto) 0.1 (0.0-0.4) X10*3/uL Baso # (Auto) 0.0 (0.0-0.2) X10*3/uL Abs Immat Gran (auto) 0.02 (0.00-0.03) X10*3/uL Absolute Neuts (auto) 4.1 (2.0-8.3) X10*3/uL Absolute Nucleated RBC 0.000 (0.0-0.012) X10*3/uL Nucleated RBC % (auto) 0.0 (0.0-0.2) /100WBC Smear Tech's Comments VERIFIED PT (9.9-13.0) SEC INR (0.9-1.1) APTT (24.1-38.0) SEC Sodium 145 (135-145) mmol/L Potassium 4.5 (3.3-5.1) mmol/L Chloride 113 H (96-108) mmol/L Carbon Dioxide 19 L (22-29) mmol/L Anion Gap 18 (12-20) BUN 20 H (9-16) mg/dL Creatinine 0.90 (0.5-1.4) mg/dL Estim Creat Clear Calc 62.9 Estimated GFR > 60 Random Glucose 107 (60-115) mg/dL Calcium 8.2 L D (8.4-10.2) mg/dL Total Bilirubin 0.3 (0.0-1.0) mg/dL AST 38 H D (5-31) U/L ALT 28 (0-31) U/L Alkaline Phosphatase 125 H (39-117) U/L Total Protein 6.9 (6.5-8.0) g/dL Albumin 3.8 (3.5-5.0) g/dL Lipase 34 (8-78) U/L Urine Color Urine Appearance Urine pH (5.0-8.0) Ur Specific [place] (1.005-1.025) Urine Protein (NEG-TRACE) MG/DL Urine Glucose (UA) (NEG) MG/DL Urine Ketones (NEG) MG/DL Urine Blood (NEG) Urine Nitrite (NEG) Ur Leukocyte Esterase (NEG) Urine RBC (0) /HPF Urine WBC (0-4) /HPF Ur Squamous Epith Cells /LPF Calcium Oxalate Crystal /LPF Urine Bacteria /LPF Hyaline Casts /LPF Urine Mucus /LPF Stool Occult Blood (NEGATIVE) COVID-19 ([place]) Negative (Negative) COVID-19 Clin Com See Note 03/04/21 03/04/21 03/04/21 Range/Units 18:28 18:38 22:00 WBC (4.8-10.8) X10*3/uL RBC (4.20-5.50) X10*6/uL Hgb (12.0-16.0) g/dl Hct (37-47) % MCV (80-98) fL MCH (27.0-33.0) pg MCHC (31.0-35.0) g/dl RDW (11.0-16.0) % Plt Count (160-400) X10*3/uL MPV (9.4-12.3) fL Immature Gran % (Auto) (0.0-0.4) % Neut % (Auto) (45-73) % Lymph % (Auto) (20-40) % [place] % (Auto) (2-11) % Eos % (Auto) (0-4) % Baso % (Auto) (0-2) % Lymph # (Auto) (1.2-4.9) X10*3/uL [place] # (Auto) (0.1-1.2) X10*3/uL Eos # (Auto) (0.0-0.4) X10*3/uL Baso # (Auto) (0.0-0.2) X10*3/uL Abs Immat Gran (auto) (0.00-0.03) X10*3/uL Absolute Neuts (auto) (2.0-8.3) X10*3/uL Absolute Nucleated RBC (0.0-0.012) X10*3/uL Nucleated RBC % (auto) (0.0-0.2) /100WBC Smear Tech's Comments PT 36.2 H (9.9-13.0) SEC INR 3.1 H (0.9-1.1) APTT 45.4 H (24.1-38.0) SEC Sodium (135-145) mmol/L Potassium (3.3-5.1) mmol/L Chloride (96-108) mmol/L Carbon Dioxide (22-29) mmol/L Anion Gap (12-20) BUN (9-16) mg/dL Creatinine (0.5-1.4) mg/dL Estim Creat Clear Calc Estimated GFR Random Glucose (60-115) mg/dL Calcium (8.4-10.2) mg/dL Total Bilirubin (0.0-1.0) mg/dL AST (5-31) U/L ALT (0-31) U/L Alkaline Phosphatase (39-117) U/L Total Protein (6.5-8.0) g/dL Albumin (3.5-5.0) g/dL Lipase (8-78) U/L Urine Color YELLOW Urine Appearance HAZY Urine pH 5.5 (5.0-8.0) Ur Specific [place] 1.015 (1.005-1.025) Urine Protein TRACE (NEG-TRACE) MG/DL Urine Glucose (UA) NEG (NEG) MG/DL Urine Ketones NEG (NEG) MG/DL Urine Blood NEG (NEG) Urine Nitrite POS H (NEG) Ur Leukocyte Esterase NEG (NEG) Urine RBC 1-4 (0) /HPF Urine WBC 10-14 H (0-4) /HPF Ur Squamous Epith Cells 1+ /LPF Calcium Oxalate Crystal 2+ /LPF Urine Bacteria 2+ /LPF Hyaline Casts 1-4 /LPF Urine Mucus 2+ /LPF Stool Occult Blood POSITIVE (NEGATIVE) COVID-19 ([place]) (Negative) COVID-19 Clin Com <JOSE Major - Last Filed: 03/05/21 11:04> Lab Results 03/04/21 03/04/21 03/04/21 Range/Units 18:00 18:00 18:09 WBC 5.7 (4.8-10.8) X10*3/uL RBC 4.36 (4.20-5.50) X10*6/uL Hgb 13.1 (12.0-16.0) g/dl Hct 39.8 (37-47) % MCV 91.3 (80-98) fL MCH 30.0 (27.0-33.0) pg MCHC 32.9 (31.0-35.0) g/dl RDW 13.2 (11.0-16.0) % Plt Count 95 L D (160-400) X10*3/uL MPV 12.9 H (9.4-12.3) fL Immature Gran % (Auto) 0.4 (0.0-0.4) % Neut % (Auto) 71.7 (45-73) % Lymph % (Auto) 19.2 L (20-40) % [place] % (Auto) 7.6 (2-11) % Eos % (Auto) 0.9 (0-4) % Baso % (Auto) 0.2 (0-2) % Lymph # (Auto) 1.1 L (1.2-4.9) X10*3/uL [place] # (Auto) 0.4 (0.1-1.2) X10*3/uL Eos # (Auto) 0.1 (0.0-0.4) X10*3/uL Baso # (Auto) 0.0 (0.0-0.2) X10*3/uL Abs Immat Gran (auto) 0.02 (0.00-0.03) X10*3/uL Absolute Neuts (auto) 4.1 (2.0-8.3) X10*3/uL Absolute Nucleated RBC 0.000 (0.0-0.012) X10*3/uL Nucleated RBC % (auto) 0.0 (0.0-0.2) /100WBC Smear Tech's Comments VERIFIED PT (9.9-13.0) SEC INR (0.9-1.1) APTT (24.1-38.0) SEC Sodium 145 (135-145) mmol/L Potassium 4.5 (3.3-5.1) mmol/L Chloride 113 H (96-108) mmol/L Carbon Dioxide 19 L (22-29) mmol/L Anion Gap 18 (12-20) BUN 20 H (9-16) mg/dL Creatinine 0.90 (0.5-1.4) mg/dL Estim Creat Clear Calc 62.9 Estimated GFR > 60 Random Glucose 107 (60-115) mg/dL Calcium 8.2 L D (8.4-10.2) mg/dL Total Bilirubin 0.3 (0.0-1.0) mg/dL AST 38 H D (5-31) U/L ALT 28 (0-31) U/L Alkaline Phosphatase 125 H (39-117) U/L Total Protein 6.9 (6.5-8.0) g/dL Albumin 3.8 (3.5-5.0) g/dL Lipase 34 (8-78) U/L Urine Color Urine Appearance Urine pH (5.0-8.0) Ur Specific [place] (1.005-1.025) Urine Protein (NEG-TRACE) MG/DL Urine Glucose (UA) (NEG) MG/DL Urine Ketones (NEG) MG/DL Urine Blood (NEG) Urine Nitrite (NEG) Ur Leukocyte Esterase (NEG) Urine RBC (0) /HPF Urine WBC (0-4) /HPF Ur Squamous Epith Cells /LPF Calcium Oxalate Crystal /LPF Urine Bacteria /LPF Hyaline Casts /LPF Urine Mucus /LPF Stool Occult Blood (NEGATIVE) COVID-19 ([place]) Negative (Negative) COVID-19 Clin Com See Note 03/04/21 03/04/21 03/04/21 Range/Units 18:28 18:38 22:00 WBC (4.8-10.8) X10*3/uL RBC (4.20-5.50) X10*6/uL Hgb (12.0-16.0) g/dl Hct (37-47) % MCV (80-98) fL MCH (27.0-33.0) pg MCHC (31.0-35.0) g/dl RDW (11.0-16.0) % Plt Count (160-400) X10*3/uL MPV (9.4-12.3) fL Immature Gran % (Auto) (0.0-0.4) % Neut % (Auto) (45-73) % Lymph % (Auto) (20-40) % [place] % (Auto) (2-11) % Eos % (Auto) (0-4) % Baso % (Auto) (0-2) % Lymph # (Auto) (1.2-4.9) X10*3/uL [place] # (Auto) (0.1-1.2) X10*3/uL Eos # (Auto) (0.0-0.4) X10*3/uL Baso # (Auto) (0.0-0.2) X10*3/uL Abs Immat Gran (auto) (0.00-0.03) X10*3/uL Absolute Neuts (auto) (2.0-8.3) X10*3/uL Absolute Nucleated RBC (0.0-0.012) X10*3/uL Nucleated RBC % (auto) (0.0-0.2) /100WBC Smear Tech's Comments PT 36.2 H (9.9-13.0) SEC INR 3.1 H (0.9-1.1) APTT 45.4 H (24.1-38.0) SEC Sodium (135-145) mmol/L Potassium (3.3-5.1) mmol/L Chloride (96-108) mmol/L Carbon Dioxide (22-29) mmol/L Anion Gap (12-20) BUN (9-16) mg/dL Creatinine (0.5-1.4) mg/dL Estim Creat Clear Calc Estimated GFR Random Glucose (60-115) mg/dL Calcium (8.4-10.2) mg/dL Total Bilirubin (0.0-1.0) mg/dL AST (5-31) U/L ALT (0-31) U/L Alkaline Phosphatase (39-117) U/L Total Protein (6.5-8.0) g/dL Albumin (3.5-5.0) g/dL Lipase (8-78) U/L Urine Color YELLOW Urine Appearance HAZY Urine pH 5.5 (5.0-8.0) Ur Specific [place] 1.015 (1.005-1.025) Urine Protein TRACE (NEG-TRACE) MG/DL Urine Glucose (UA) NEG (NEG) MG/DL Urine Ketones NEG (NEG) MG/DL Urine Blood NEG (NEG) Urine Nitrite POS H (NEG) Ur Leukocyte Esterase NEG (NEG) Urine RBC 1-4 (0) /HPF Urine WBC 10-14 H (0-4) /HPF Ur Squamous Epith Cells 1+ /LPF Calcium Oxalate Crystal 2+ /LPF Urine Bacteria 2+ /LPF Hyaline Casts 1-4 /LPF Urine Mucus 2+ /LPF Stool Occult Blood POSITIVE (NEGATIVE) COVID-19 ([place]) (Negative) COVID-19 Clin Com <Lakeisha Foster NP - Last Filed: 03/04/21 22:10> Imaging Data CT scan - abdomen: Attestation: I personally reviewed and interpreted this imaging study as follows: <Lakeisha Foster NP - Last Filed: 03/04/21 22:10> Radiologist's impression: FINDINGS: LOWER CHEST: Included lung bases unremarkable. LIVER, GALLBLADDER, BILIARY TREE: Liver normal size and attenuation. No focal cystic or solid mass or intra-or extrahepatic ductal dilatation. Hepatic and portal veins patent. Gallbladder partially distended and within normal limits. PANCREAS: Normal. No ductal dilatation, mass, or surrounding stranding. SPLEEN: Normal size and appearance. Splenic vein patent. ADRENAL GLANDS: Right adrenal gland normal. Left adrenal gland again shows a exophytic 1.5 x 2.1 cm low-attenuation mass with mean attenuation values of -4.6 Hounsfield units, unchanged from prior studies and most consistent with a benign cystic mass. KIDNEYS: There is a chronic small subcapsular fluid collection along the anterior margin of the mid right kidney, similar to 10/07/2020 and smaller compared to 04/27/2020, consistent with patient's history of resolving perinephric hematoma. Prominent lobulation of the left kidney versus small peripheral cortical defects again seen, unchanged. Kidneys bilaterally symmetric in size and function. No suspicious new or enlarging focal mass, hydronephrosis, nephrolithiasis or perinephric stranding. URETERS AND BLADDER: Ureters decompressed and within normal limits. Diffuse mild bladder wall thickening is seen, suboptimally assessed due to underdistention of the bladder. No bladder calculi. PELVIC ORGANS: The patient is status post hysterectomy. Small amount of gas is seen within the vagina, likely related to exogenous introduction. Ovaries not visualized and likely also surgically absent versus markedly atrophic. GASTROINTESTINAL TRACT: A small retrocardiac hiatal hernia is again seen, containing the gastric fundus. Scattered colonic diverticula are noted. No evidence of acute diverticulitis.. Small and large bowel loops decompressed. Appendix in right lower quadrant normal. ABDOMINAL WALL: Midline anterior abdominal wall hernia mesh is seen in place. Small rounded deep subcutaneous structure in the midline of the lower abdomen likely represents an area of injection granuloma. LYMPHOVASCULAR STRUCTURES: Abdominal aorta normal in caliber. No periaortic collections. No abdominal or pelvic adenopathy or free fluid collection. BONES: A TENS unit is seen in the posterior right buttock region with leads extending into the presacral space. [place] along the anterior margin of the L3 vertebral body again noted. Bony structures unremarkable. CT/CT abdomen pelvis w con IMPRESSION: ? 1. Scattered colonic diverticulosis with no evidence of acute diverticulitis. 2. Diffuse thickening of the bladder wall is noted, perhaps due to underdistention or in the correct clinical setting due to cystitis. Clinical correlation requested. 3. Long-term stable fluid attenuation left adrenal mass and slowly resorbing chronic small subcapsular fluid collection along the anterior margin of the mid right kidney. <Lakeisha Foster NP - Last Filed: 03/04/21 22:10> ECG Data Interpretation: Normal axis. Sinus with a rate of 80. [place] interval 130 QRS of the QTC 484. No ST elevations or depressions. Nonspecific T-wave abnormality <JOSE Major - Last Filed: 03/05/21 11:04> Discharge Plan Discharge Clinical Impression: Gastroenteritis <JOSE Major - Last Filed: 03/05/21 11:04> Patient Disposition: Home, Self-Care <JOSE Major - Last Filed: 03/05/21 11:04> Instructions: Acute Diarrhea (ED) <JOSE Major - Last Filed: 03/05/21 11:04> Additional Instructions: You were evaluated for abdominal pain, nausea and diarrhea. Your CT scan is negative for acute findings require emergent intervention. Lab values are within normal limits with the exception of your platelets which are little bit low and your INR which is 3.1. Please follow-up with primary care physician in approximately 2 weeks for repeat lab values. Please call Coumadin clinic for adjustment of her Coumadin dosage for tomorrow. Please use Zofran as needed for nausea. Please drink plenty of fluids. Not take any medications to stop diarrhea. If diarrhea persists over a week, please return to primary care for evaluation. Thank you for choosing this emergency department for evaluation. Please f ollow-up with primary care physician as needed. Return to the emergency department for any new, concerning, or worsening symptoms. <JOSE Major - Last Filed: 03/05/21 11:04> Prescriptions: New ondansetron HCl [Zofran] 4 mg tablet 4 mg PO Q8H PRN (Reason: nausea and vomiting) Qty: 7 RF: 0 No Action acetaminophen 500 mg capsule 1,000 mg PO Q6H PRN (Reason: pain) 7 Days Qty: 60 RF: 0 nitrofurantoin monohyd/m-cryst [Macrobid] 100 mg capsule 100 mg PO Q12H 7 Days Qty: 14 RF: 0 phenazopyridine [Pyridium] 200 mg tablet 200 mg PO TID PRN (Reason: pain) Qty: 6 RF: 0 amitriptyline 50 mg tablet 50 mg PO DAILY RF: 0 atorvastatin 40 mg tablet 40 mg PO DAILY RF: 0 escitalopram oxalate 20 mg tablet 20 mg PO DAILY RF: 0 folic acid 0.8 mg capsule 0.8 mg PO DAILY RF: 0 hydroxyzine HCl 25 mg tablet 25 mg PO BEDTIME RF: 0 ramelteon [Rozerem] 8 mg tablet 8 mg PO BEDTIME RF: 0 topiramate 100 mg tablet 100 mg PO BEDTIME RF: 0 buspirone 7.5 mg tablet 7.5 mg PO BID RF: 0 famotidine 20 mg tablet 20 mg PO BEDTIME RF: 0 Saccharomyces boulardii [Florastor] 250 mg capsule 250 mg PO BID RF: 0 Rexulti 1 mg tablet 1 mg PO DAILY RF: 0 clonazepam 0.5 mg tablet 0.25 mg PO TID PRN (Reason: Anxiety) RF: 0 melatonin 5 mg capsule 5 mg PO BEDTIME RF: 0 warfarin 5 mg tablet 5 mg PO DAILY RF: 0 Hold Instructions: Resume on 11/10/20. <JOSE Major - Last Filed: 03/05/21 11:04> Interventions: ED Discharge Assessment Last Done: 03/04/21 22:25 <JOSE Major - Last Filed: 03/05/21 11:04> Discharge Date/Time: 03/04/21 22:27 <JOSE Major - Last Filed: 03/05/21 11:04> [facility] Past Medical History Medical History: Medical History Atrial fibrillation Bipolar 1 disorder Chronic venous insufficiency Diverticulosis History of DVT (deep vein thrombosis) History of pulmonary embolism Hyperlipidemia PAD (peripheral artery disease) Stress incontinence <JOSE Major - Last Filed: 03/05/21 11:04> Surgical History: Surgical History History of cystoscopy History of lithotripsy History of surgery History of ventral hernia repair Hx of heart surgery Hx of oral surgery Status post ablation of incompetent vein using laser (12/16/20) <JOSE Major - Last Filed: 03/05/21 11:04> Family History Family History: Family History Mother No problems noted. Father No problems noted. <JOSE Major - Last Filed: 03/05/21 11:04> Social History Social History: Social History Alcohol intake: never Cigarette Packs Per Day: 1 Cigarettes Per Day: 20.0 Years Smoked: 3 Advance Directives: No Advance Directives Information Provided: No <JOSE Major - Last Filed: 03/05/21 11:04>
--- NOTE | 2021-03-04 17:32 | ECG_ITS ---
Test Reason : WEAKNESS Blood Pressure : / mmHG Vent. Rate : 080 BPM Atrial Rate : 080 BPM P-R Int : 130 ms QRS Dur : 070 ms QT Int : 420 ms P-R-T Axes : 044 031 035 degrees QTc Int : 484 ms Normal sinus rhythm Nonspecific T wave abnormality Abnormal ECG When compared with ECG of 12-OCT-2020 10:40, Nonspecific T wave abnormality is now Present Heart rate has decreased Referred By: Earnestine Garrett Electronically Signed By:RAMILA JONES
[2021-03-04 18:00] VITALS: BP 140/89; PULSE 66
[2021-03-04 18:13] LABS: Basophils Percent Auto 0.2 % (0-2); Eosinophils Absolute Auto 0.1 X10*3/uL (0.0-0.4); Eosinophils Percent Auto 0.9 % (0-4); MANUAL DIFF FLAG SCAN; Red Cell Distribution Width 13.2 % (11.0-16.0); SCAN SMEAR FLAG 1
[2021-03-04 18:15] LABS: Hematocrit 39.8 % (37-47); Hemoglobin 13.1 g/dl (12.0-16.0); Imm Gran Abs Auto 0.02 X10*3/uL (0.00-0.03); Imm Gran Pct Auto 0.4 % (0.0-0.4); Lymphocytes Absolute Auto 1.1 X10*3/uL (1.2-4.9); Lymphocytes Percent Auto 19.2 % (20-40); Mean Corpuscular HGB Conc 32.9 g/dl (31.0-35.0); Mean Corpuscular Volume 91.3 fL (80-98); Mean Platelet Volume 12.9 fL (9.4-12.3); Monocytes Absolute Auto 0.4 X10*3/uL (0.1-1.2); Monocytes Percent Auto 7.6 % (2-11); Neutrophils Absolute Auto 4.1 X10*3/uL (2.0-8.3); Neutrophils Percent Auto 71.7 % (45-73); Red Blood Count 4.36 X10*6/uL (4.20-5.50); White Blood Count 5.7 X10*3/uL (4.8-10.8)
[2021-03-04 18:24] VITALS: RESP 18
[2021-03-04] MEDS: ondansetron HCL 4 MG/2 ML VIAL IVPUSH (18:24)
[2021-03-04] MEDS: 0.9 % Sodium Chloride 1,000 ML 999 ML IV (18:24)
[2021-03-04] MEDS: Morphine Sulfate 4 MG/ML CARTRIDGE IVPUSH (18:24)
--- NOTE | 2021-03-04 18:24 | PC.NURSE ---
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 the visitor was informed that the hospital policy is currently not allowing individuals to wait in the waiting room and are advised to wait outside and may phone the ED with further questions/information. this patients visitor was not pleased with this and initially was very resistant to leaving the waiting room. this RN once again explained the policy and that exceptions cannot be made as it would be unfair to other patients who have family waiting. visitor was finally willing to exit the waiting room and was encouraged to call if more information was needed.
[2021-03-04 18:33] LABS: COVID-19 Test Negative (Negative)
[2021-03-04 18:33] LABS: PLT ABN DIST 1; Platelet Count 95 X10*3/uL (160-400); SLIDE REVIEW VERIFIED
[2021-03-04 18:38] LABS: Alanine Aminotransferase 28 U/L (0-31); Albumin Level 3.8 g/dL (3.5-5.0); Alkaline Phosphatase 125 U/L (39-117); Anion Gap 18 (12-20); Aspartate Amino Transferase 38 U/L (5-31); Bilirubin Total 0.3 mg/dL (0.0-1.0); Blood Urea Nitrogen 20 mg/dL (9-16); Calcium 8.2 mg/dL (8.4-10.2); Carbon Dioxide 19 mmol/L (22-29); Chloride 113 mmol/L (96-108); Creatinine Clr Calc Pharmacy 62.9; Estimated Glomerular Filt Rate > 60; Glucose Random 107 mg/dL (60-115); Lipase 34 U/L (8-78); Potassium 4.5 mmol/L (3.3-5.1); Sodium 145 mmol/L (135-145); Total Protein 6.9 g/dL (6.5-8.0)
[2021-03-04 18:42] LABS: Partial Thromboplastin Time 45.4 SEC (24.1-38.0)
[2021-03-04 18:48] LABS: OBS Int Ctl Valid YES; OBS1 POSITIVE (NEGATIVE)
[2021-03-04] MEDS: iohexoL 350 MG/ML 100 ML INFUS..BTL IV (19:06)
[2021-03-04 19:32] LABS: INTERNATIONAL NORM RATIO 3.1 (0.9-1.1); Prothrombin Time 36.2 SEC (9.9-13.0)
[2021-03-04 19:53] VITALS: BP 112/67; PULSE 72; RESP 18; O2SAT 95
[2021-03-04 20:31] VITALS: BP 99/59; PULSE 70; RESP 16
[2021-03-04 21:49] VITALS: BP 100/67; PULSE 95; RESP 20; TEMP 37.1; O2SAT 93
[2021-03-04 22:05] LABS: Glucose Urine UA NEG (NEG); Leukocyte Esterase Urine NEG (NEG); Nitrite Urine POS (NEG); PH 5.5 (5.0-8.0); Specific Gravity - Urine 1.015 (1.005-1.025); Urine Blood NEG (NEG); Urine Ketones NEG (NEG); Urine Protein TRACE MG/DL (NEG-TRACE)
[2021-03-04 22:15] LABS: Appearance Urine HAZY; Color Urine YELLOW
[2021-03-04 22:16] LABS: Bacteria Urine 2+ /LPF; Calcium Oxalate Crystals Urine 2+ /LPF; Mucus Urine 2+ /LPF; Squamous Epithelial Cell Urine 1+ /LPF
--- NOTE | 2021-03-04 23:08 | PC.NURSE ---
Pt was helped with dressing, buttoning her paj top, helping her with her shoes, pt has a plastic bag with her medications and discharge instructions. This rn walked the pt to the door way of the enterance to the ed. pt walked with a steady gait, and a quick stride. pt had the plastic bag with her. the cpt called and is now looking for her medications. pct and myself looked in the trash, linen all removed and sorted thru and no medication bag found.
== END 2021-03-04 22:27 | disposition home or self-care (01) ==
PROVIDERS: Physician Assistant; Emergency Provider Emergency Medicine
DX: K52.9 Noninfective gastroenteritis and colitis, unspecified (principal); R10.30 Lower abdominal pain, unspecified; R11.0 Nausea; Z20.822 Contact with and (suspected) exposure to COVID-19; I48.91 Unspecified atrial fibrillation; Z86.718 Personal history of other venous thrombosis and embolism; Z86.711 Personal history of pulmonary embolism; Z79.01 Long term (current) use of anticoagulants; Z79.899 Other long term (current) drug therapy
CPT/HCPCS: 36415; 74177; 80053; 81001; 82272; 83690; 85025; 85610; 85730; 87635; 93005; 96361; 96374; 96375; 99284; J2270; J2405; Q9967

== ENCOUNTER 2021-03-10 07:19 | Emergency (ER) | payer MEDICAID, SELFPAY ==
--- NOTE | ~2021-03-10 | CT_ITS ---
EXAMINATION: CT ABDOMEN AND PELVIS WITH CONTRAST CLINICAL INFORMATION: Abdominal pain, severe diarrhea COMPARISON: CT abdomen and pelvis with contrast 03/04/2021, 10/07/2020 TECHNIQUE: Multidetector volumetric images were obtained from the superior aspect of the liver through the pubic symphysis following administration 85 mL of Omnipaque 350 intravenous contrast. Sagittal and coronal reformatted images were obtained on the technologist's workstation. Oral contrast: No This CT examination was performed using dose optimization techniques as appropriate, variously including the following: *Automated exposure control *Adjustment of mA and/or kV according to patient size (this includes techniques or standardized protocols for targeted exams where dose is matched to indication/reason for exam; i.e. extremities or head) *Use of iterative reconstruction technique DLP: 625 mGy-cm FINDINGS: LUNG BASES: The visualized lung bases are unremarkable. LIVER, GALLBLADDER, AND BILIARY TREE: Normal in size size and smooth in contour. Mild hepatic steatosis. No focal hepatic parenchymal lesion or intrahepatic ductal dilatation. The gallbladder is unremarkable with no evidence of radiopaque gallstones, gallbladder wall thickening, or obvious pericholecystic inflammatory changes. PANCREAS: Unremarkable. SPLEEN: Unremarkable. ADRENAL GLANDS: Stable cystic lesion left adrenal approximately 2 cm, similar to prior exams. Right adrenal unremarkable. KIDNEYS AND URETERS: The kidneys enhance symmetrically. There is a small subcapsular right renal resolving hematoma/fluid again noted. No interval enlargement. No hydronephrosis, calculi, hydroureter, or perinephric stranding BLADDER: Unremarkable. GASTROINTESTINAL TRACT: There is no bowel obstruction or focal inflammatory changes in the bowel or mesentery. The appendix is normal. There is no bowel wall thickening, ascites, or fluid collection. Scattered diverticula are again noted in the colon but no diverticulitis. ABDOMINAL WALL: Status post mesh. A few subcutaneous injection granulomas again noted anteriorly. No significant hernia demonstrated. LYMPH NODES: No lymphadenopathy. VASCULAR: No acute abnormality. Stent left common iliac vein again noted. PELVIC VISCERA: Prior hysterectomy, oophorectomy. No pelvic ascites or fluid collection. OSSEOUS STRUCTURES: Sacral spinal stimulator leads again noted. Generator overlying right buttocks. No acute bony abnormality. CT/CT abdomen pelvis w con IMPRESSION: 1. No inflammatory changes in bowel or mesentery. No obstruction. Normal appendix. No ascites or fluid collection. 2. Other findings stable from prior exams (cystic lesion left adrenal, small residual right anterior subcapsular renal hematoma, left common iliac stent, mesh anterior abdomen, spinal stimulator).
--- NOTE | 2021-03-10 07:23 | ED_ITS ---
HPI - Nausea/Vomiting/Diarrhea General Chief complaint: Abdominal Pain Stated complaint: diarrhea x1 week Time Seen by Provider: 03/10/21 07:23 Source: patient and EMS Mode of arrival: EMS Limitations: no limitations History of Present Illness MD elicited complaint: nausea, vomiting, diarrhea and abdominal pain Onset (ago): week(s) (1) Associated nausea: Yes Associated abdominal pain: Yes Location of pain: diffuse Radiation: diffuse Pain consistency: intermittent Severity: moderate Quality: cramping Exacerbating factors: eating Relieving factors: none Associated symptoms: loss of appetite, malaise and nausea/vomiting Related Data Home Medications Medication Instructions Recorded Confirmed Saccharomyces boulardii 250 mg 250 mg PO BID 10/11/20 02/02/21 capsule (Florastor) atorvastatin 40 mg tablet 40 mg PO DAILY 10/11/20 03/10/21 buspirone 7.5 mg tablet 7.5 mg PO BID 10/11/20 03/10/21 clonazepam 0.5 mg tablet 0.25 mg PO TID tab 10/11/20 03/10/21 escitalopram oxalate 20 mg tablet 20 mg PO DAILY 10/11/20 02/02/21 famotidine 20 mg tablet 20 mg PO BID 10/11/20 02/02/21 hydroxyzine HCl 25 mg tablet 25 mg PO BEDTIME 10/11/20 02/02/21 melatonin 5 mg capsule 5 mg PO BEDTIME cap 10/11/20 03/10/21 ramelteon 8 mg tablet (Rozerem) 8 mg PO BEDTIME 10/11/20 02/02/21 topiramate 100 mg tablet 100 mg PO BEDTIME 10/11/20 02/02/21 warfarin 5 mg tablet 5 mg PO SUTUTHSA tab 10/11/20 02/02/21 amitriptyline 10 mg tablet 1 tab PO BEDTIME 03/10/21 03/10/21 brexpiprazole 2 mg tablet (Rexulti) 1 tab PO DAILY 03/10/21 03/10/21 cetirizine 10 mg tablet 1 tab PO DAILY 03/10/21 03/10/21 folic acid 400 mcg tablet 1 tab PO DAILY 03/10/21 03/10/21 trazodone 50 mg tablet 1 tab PO BEDTIME 03/10/21 03/10/21 warfarin 5 mg tablet 7.5 mg PO MOWEFR 03/10/21 Previous Rx's Medication Instructions Recorded acetaminophen 500 mg capsule 1,000 mg PO Q6H PRN 7 Days #60 cap 11/09/20 ondansetron HCl 4 mg tablet 4 mg PO Q8H PRN #7 tab 03/04/21 (Zofran) cefuroxime axetil 250 mg tablet 250 mg PO BID 7 Days #14 tab 03/10/21 Allergies Allergy/AdvReac Type Severity Reaction Status Date / Time aspirin [ASPIRIN] Allergy Intermediate CAN'T Verified 01/12/21 09:07 TAKE- ON WARFARIN Review of Systems Review of Systems: Constitutional : No Weight loss, No Fever, No Chills ENT/Mouth : No sore throat, No Rhinorrhea Eyes: No Swelling, No Redness Cardiovascular : No Chest Pain, No SOB, NoEdema Respiratory : No Cough, No Sputum, No Wheezing Gastrointestinal : Positive Nausea, Positive Vomiting, positive Diarrhea, pos itive abdominal Pain, No Hematochezia, No Melena Genitourinary : No Dysuria, No Urinary Frequency, No Hematuria, No Urgency Musculoskeletal : No joint pain, No Myalgias, No Joint Swelling Skin : No Skin Lesions, No rash Neuro : No Weakness, No Numbness, No Dizziness, No Headache Psych : No Anxiety/Panic, No Depression Heme/Lymph: No Bruising, No Lymphadenopathy Endocrine : No Polyuria, No Polydipsia All other systems reviewed and are negative. Gastrointestinal: Gastrointestinal: Reports nausea PMFSH Past Medical History Attestation statement: The following information was validated with the patient. Medical History Atrial fibrillation Bipolar 1 disorder Chronic venous insufficiency Diverticulosis History of DVT (deep vein thrombosis) History of pulmonary embolism Hyperlipidemia PAD (peripheral artery disease) Stress incontinence Surgical History History of cystoscopy History of lithotripsy History of surgery History of ventral hernia repair Hx of heart surgery Hx of oral surgery Status post ablation of incompetent vein using laser (12/16/20) Family History Family History Mother No problems noted. Father No problems noted. Social History Social History Alcohol intake: never Patient Tobacco Use Status: Current someday Tobacco user Cigarette Packs Per Day: 1 Cigarettes Per Day: 20.0 Years Smoked: 3 Use of substances other than those prescribed or required for medical reasons: No Advance Directives: No Advance Directives Information Provided: No Patient : No Physical Exam Vital Signs: Vital Signs: Last Vital Signs Temp 98.4 F 03/10/21 07:26 Pulse 75 03/10/21 09:10 Resp 18 03/10/21 09:10 BP 99/61 03/10/21 09:10 Pulse Ox 93 03/10/21 09:10 Body Mass Index 34.5 Appearance: Alert. Oriented X3. No acute distress. Eyes: Pupils equal, round and reactive to light. ENT: Pharynx normal. Neck: Normal inspection. Neck supple. CVS: Normal heart rate and rhythm. Pulses normal. Respiratory: No respiratory distress. Breath sounds normal. Abdomen: Soft and mild diffuse ttp no rebound or guarding Skin: Skin warm and dry. Normal skin color. Normal skin turgor. Extremities: No lower extremity edema. No calf ttp Neuro: Oriented X 3. No motor deficit. No sensory deficit. Course Course Course Narrative: INR elevated H/H stable no reports of GIB other than INR no other acute findings, normal WBC, has not had BM in 3 hours, CT scan negative, we are PO challenging her at this time [facility] on 03/04 will treat at this time with PO abx MDM - Nausea/Vomiting/Diarrhea MDM Narrative Medical decision making narrative: 61 yo female with hx of afib on coumadin, bipolar, s/p ventral hernia repair comes in with c/o diarrhea x 1 week denies food exposures/sick contacts/antibiotic use - at this time labs, stools studies, IVF, IV morphine for pain, CT scan for colitis. Dispo per results and findings. Lab Data Result diagrams: 03/10/21 07:57 03/10/21 07:57 Labs: Lab Results 03/10/21 03/10/21 03/10/21 Range/Units 07:52 07:57 07:57 WBC 5.5 (4.8-10.8) X10*3/uL RBC 4.20 (4.20-5.50) X10*6/uL Hgb 12.2 (12.0-16.0) g/dl Hct 38.0 (37-47) % MCV 90.5 (80-98) fL MCH 29.0 (27.0-33.0) pg MCHC 32.1 (31.0-35.0) g/dl RDW 12.8 (11.0-16.0) % Plt Count 163 D (160-400) X10*3/uL MPV 12.1 (9.4-12.3) fL Immature Gran % (Auto) 0.4 (0.0-0.4) % Neut % (Auto) 64.7 (45-73) % Lymph % (Auto) 24.5 (20-40) % Gonzales % (Auto) 7.8 (2-11) % Eos % (Auto) 2.2 (0-4) % Baso % (Auto) 0.4 (0-2) % Lymph # (Auto) 1.4 (1.2-4.9) X10*3/uL Gonzales # (Auto) 0.4 (0.1-1.2) X10*3/uL Eos # (Auto) 0.1 (0.0-0.4) X10*3/uL Baso # (Auto) 0.0 (0.0-0.2) X10*3/uL Abs Immat Gran (auto) 0.02 (0.00-0.03) X10*3/uL Absolute Neuts (auto) 3.6 (2.0-8.3) X10*3/uL Absolute Nucleated RBC 0.000 (0.0-0.012) X10*3/uL Nucleated RBC % (auto) 0.0 (0.0-0.2) /100WBC PT 71.4 H D (9.9-13.0) SEC INR 6.0 H* D (0.9-1.1) Sodium (135-145) mmol/L Potassium (3.3-5.1) mmol/L Chloride (96-108) mmol/L Carbon Dioxide (22-29) mmol/L Anion Gap (12-20) BUN (9-16) mg/dL Creatinine (0.5-1.4) mg/dL Estim Creat Clear Calc Estimated GFR Random Glucose (60-115) mg/dL Lactic Acid (0.5-2.0) mmol/L Calcium (8.4-10.2) mg/dL Magnesium (1.6-2.6) mg/dL Total Bilirubin (0.0-1.0) mg/dL Direct Bilirubin (0.0-0.5) mg/dL AST (5-31) U/L ALT (0-31) U/L Alkaline Phosphatase (39-117) U/L Total Protein (6.5-8.0) g/dL Albumin (3.5-5.0) g/dL Lipase (8-78) U/L COVID-19 ([place]) Negative (Negative) COVID-19 Clin Com See Note 03/10/21 03/10/21 Range/Units 07:57 07:57 WBC (4.8-10.8) X10*3/uL RBC (4.20-5.50) X10*6/uL Hgb (12.0-16.0) g/dl Hct (37-47) % MCV (80-98) fL MCH (27.0-33.0) pg MCHC (31.0-35.0) g/dl RDW (11.0-16.0) % Plt Count (160-400) X10*3/uL MPV (9.4-12.3) fL Immature Gran % (Auto) (0.0-0.4) % Neut % (Auto) (45-73) % Lymph % (Auto) (20-40) % Gonzales % (Auto) (2-11) % Eos % (Auto) (0-4) % Baso % (Auto) (0-2) % Lymph # (Auto) (1.2-4.9) X10*3/uL Gonzales # (Auto) (0.1-1.2) X10*3/uL Eos # (Auto) (0.0-0.4) X10*3/uL Baso # (Auto) (0.0-0.2) X10*3/uL Abs Immat Gran (auto) (0.00-0.03) X10*3/uL Absolute Neuts (auto) (2.0-8.3) X10*3/uL Absolute Nucleated RBC (0.0-0.012) X10*3/uL Nucleated RBC % (auto) (0.0-0.2) /100WBC PT (9.9-13.0) SEC INR (0.9-1.1) Sodium 145 (135-145) mmol/L Potassium 3.6 (3.3-5.1) mmol/L Chloride 113 H (96-108) mmol/L Carbon Dioxide 23 (22-29) mmol/L Anion Gap 13 (12-20) BUN 15 (9-16) mg/dL Creatinine 0.76 (0.5-1.4) mg/dL Estim Creat Clear Calc 73.8 Estimated GFR > 60 Random Glucose 104 (60-115) mg/dL Lactic Acid 1.0 (0.5-2.0) mmol/L Calcium 8.5 (8.4-10.2) mg/dL Magnesium 2.1 (1.6-2.6) mg/dL Total Bilirubin 0.4 (0.0-1.0) mg/dL Direct Bilirubin 0.2 (0.0-0.5) mg/dL AST 20 D (5-31) U/L ALT 24 (0-31) U/L Alkaline Phosphatase 106 (39-117) U/L Total Protein 6.4 L (6.5-8.0) g/dL Albumin 3.9 (3.5-5.0) g/dL Lipase 37 (8-78) U/L COVID-19 ([place]) (Negative) COVID-19 Clin Com Discharge Plan Discharge Clinical Impression: Elevated INR Diarrhea Qualifiers: Diarrhea type: unspecified type Qualified Code(s): R19.7 - Diarrhea, unspecified Abdominal pain Qualifiers: Abdominal location: generalized Qualified Code(s): R10.84 - Generalized abdominal pain UTI (urinary tract infection) Qualifiers: Urinary tract infection type: acute cystitis Hematuria presence: without hematuria Qualified Code(s): N30.00 - Acute cystitis without hematuria Patient Disposition: Home, Self-Care Instructions: Urinary Tract Infection in Women (ED), Acute Diarrhea (ED), Abdominal Pain (ED), Elevated INR (ED) Additional Instructions: return to ED for any worsening symptoms or concerns INR is a 6.0 please hold coumadin x 3 days and recheck value on Saturday Prescriptions: New cefuroxime axetil 250 mg tablet 250 mg PO BID 7 Days Qty: 14 RF: 0 No Action acetaminophen 500 mg capsule 1,000 mg PO Q6H PRN (Reason: pain) 7 Days Qty: 60 RF: 0 ondansetron HCl [Zofran] 4 mg tablet 4 mg PO Q8H PRN (Reason: nausea and vomiting) Qty: 7 RF: 0 trazodone 50 mg tablet 1 tab PO BEDTIME RF: 0 cetirizine 10 mg tablet 1 tab PO DAILY RF: 0 folic acid 400 mcg tablet 1 tab PO DAILY RF: 0 amitriptyline 10 mg tablet 1 tab PO BEDTIME RF: 0 warfarin 5 mg tablet 7.5 mg PO MOWEFR RF: 0 Rexulti 2 mg tablet 1 tab PO DAILY RF: 0 atorvastatin 40 mg tablet 40 mg PO DAILY RF: 0 escitalopram oxalate 20 mg tablet 20 mg PO DAILY RF: 0 hydroxyzine HCl 25 mg tablet 25 mg PO BEDTIME RF: 0 ramelteon [Rozerem] 8 mg tablet 8 mg PO BEDTIME RF: 0 topiramate 100 mg tablet 100 mg PO BEDTIME RF: 0 buspirone 7.5 mg tablet 7.5 mg PO BID RF: 0 famotidine 20 mg tablet 20 mg PO BID RF: 0 Saccharomyces boulardii [Florastor] 250 mg capsule 250 mg PO BID RF: 0 clonazepam 0.5 mg tablet 0.25 mg PO TID RF: 0 melatonin 5 mg capsule 5 mg PO BEDTIME RF: 0 warfarin 5 mg tablet 5 mg PO SUTUTHSA RF: 0 Hold Instructions: Resume on 11/10/20. Referrals: Shiv Monroe MD [Primary Care Provider] - 3 days
[2021-03-10 07:26] VITALS: BP 143/93; BP 154/86; PULSE 78; PULSE 85; RESP 22; TEMP 36.9; O2SAT 95; O2SAT 96; BMI 34.5
[2021-03-10 08:04] LABS: MANUAL DIFF FLAG NO
[2021-03-10] MEDS: 0.9 % Sodium Chloride 1,000 ML 999 ML IVCONT ×2 (08:04→09:25)
[2021-03-10] MEDS: ondansetron HCL 4 MG/2 ML VIAL IVPUSH (08:05)
[2021-03-10] MEDS: Morphine Sulfate 4 MG/ML CARTRIDGE IVPUSH (08:05)
[2021-03-10 08:08] LABS: Basophils Percent Auto 0.4 % (0-2); Eosinophils Absolute Auto 0.1 X10*3/uL (0.0-0.4); Eosinophils Percent Auto 2.2 % (0-4); Hemoglobin 12.2 g/dl (12.0-16.0); Imm Gran Abs Auto 0.02 X10*3/uL (0.00-0.03); Imm Gran Pct Auto 0.4 % (0.0-0.4); Lymphocytes Absolute Auto 1.4 X10*3/uL (1.2-4.9); Lymphocytes Percent Auto 24.5 % (20-40); Mean Corpuscular HGB Conc 32.1 g/dl (31.0-35.0); Mean Corpuscular Volume 90.5 fL (80-98); Mean Platelet Volume 12.1 fL (9.4-12.3); Monocytes Absolute Auto 0.4 X10*3/uL (0.1-1.2); Monocytes Percent Auto 7.8 % (2-11); Neutrophils Absolute Auto 3.6 X10*3/uL (2.0-8.3); Neutrophils Percent Auto 64.7 % (45-73); Platelet Count 163 X10*3/uL (160-400); Red Cell Distribution Width 12.8 % (11.0-16.0); White Blood Count 5.5 X10*3/uL (4.8-10.8)
[2021-03-10 08:20] LABS: Prothrombin Time 71.4 SEC (9.9-13.0)
[2021-03-10 08:26] LABS: COVID-19 Test Negative (Negative); IDNOW Serial# 9DD0AD1C
[2021-03-10 08:41] LABS: Alanine Aminotransferase 24 U/L (0-31); Albumin Level 3.9 g/dL (3.5-5.0); Alkaline Phosphatase 106 U/L (39-117); Anion Gap 13 (12-20); Aspartate Amino Transferase 20 U/L (5-31); Bilirubin Direct 0.2 mg/dL (0.0-0.5); Bilirubin Total 0.4 mg/dL (0.0-1.0); Blood Urea Nitrogen 15 mg/dL (9-16); Calcium 8.5 mg/dL (8.4-10.2); Carbon Dioxide 23 mmol/L (22-29); Chloride 113 mmol/L (96-108); Creatinine Clr Calc Pharmacy 73.8; Estimated Glomerular Filt Rate > 60; Glucose Random 104 mg/dL (60-115); Lipase 37 U/L (8-78); Magnesium 2.1 mg/dL (1.6-2.6); Potassium 3.6 mmol/L (3.3-5.1); Sodium 145 mmol/L (135-145); Total Protein 6.4 g/dL (6.5-8.0)
[2021-03-10 09:10] VITALS: BP 99/61; PULSE 75; RESP 18; O2SAT 93
[2021-03-10] MEDS: iohexoL 350 MG/ML 100 ML INFUS..BTL IV (09:14)
--- NOTE | 2021-03-10 11:27 | PHA.MEDREC ---
Pharmacy Consult ? Medication Reconciliation Spoke with patient who does not seem to know what medication she takes. Brick Tender was unavailable to confirm medications. Received medication list from [facility] which confirmed patient is taking Cetirizine, Amtriptyline, Atorvastatin, Famotidine, folic acid and acetaminophen all last filled on 02/28/2021. Patient has been to vascular surgery who has been following warfarin dose, most recent dose confirmed was 5mg daily with INR of 3 on 02/02/21. Attempted to contact [facility] for her psych medications however I never received a fax as it needs to be approved by a pipeline gang supervisor. If/when fax is received a pharmacist will update the medication list. Confirmed all psych medications that were recently filled and prescribed by Eliu Conte CNP: Brexipiprzole, buspirone, clonazapam and trazodone. Karol Munroe, MarielenaD
== END 2021-03-10 11:31 | disposition home or self-care (01) ==
PROVIDERS: Emergency Provider Emergency Medicine; PCP Internal Medicine
DX: N30.00 Acute cystitis without hematuria (principal); R19.7 Diarrhea, unspecified; R10.84 Generalized abdominal pain; D68.8 Other specified coagulation defects; Z20.822 Contact with and (suspected) exposure to COVID-19; R11.2 Nausea with vomiting, unspecified; E78.5 Hyperlipidemia, unspecified; I48.91 Unspecified atrial fibrillation; F17.210 Nicotine dependence, cigarettes, uncomplicated; Z79.01 Long term (current) use of anticoagulants; Z79.02 Long term (current) use of antithrombotics/antiplatelets; Z79.899 Other long term (current) drug therapy; Z86.711 Personal history of pulmonary embolism; Z86.718 Personal history of other venous thrombosis and embolism
CPT/HCPCS: 36415; 74177; 80048; 80076; 83605; 83690; 83735; 85025; 85610; 87040; 87635; 96361; 96374; 96375; 99284; 99285; J2270; J2405; Q9967

== ENCOUNTER → 2021-03-17 08:18 | Outpatient (BNVA) | payer MEDICAID, SELFPAY | PROVIDERS: PCP Internal Medicine; Visit Provider Internal Medicine | DX: I82.403 Acute embolism and thrombosis of unspecified deep veins of lower extremity, bilateral (principal); Z51.81 Encounter for therapeutic drug level monitoring; Z79.01 Long term (current) use of anticoagulants | CPT/HCPCS: 85610; 99211 ==

== ENCOUNTER 2021-03-18 08:14 | Inpatient (IN) | payer MEDICAID, SELFPAY ==
--- NOTE | ~2021-03-18 | CT_ITS ---
EXAMINATION: CT ABDOMEN AND PELVIS WITH CONTRAST CLINICAL INFORMATION: Diffuse abdominal discomfort. COMPARISON: CT abdomen 03/10/2021. TECHNIQUE: Multidetector volumetric images were obtained from the superior aspect of the liver through the pubic symphysis following administration 85 mL of Omnipaque 350 intravenous contrast. Sagittal and coronal reformatted images were obtained on the technologist's workstation. Oral contrast: No This CT examination was performed using dose optimization techniques as appropriate, variously including the following: *Automated exposure control *Adjustment of mA and/or kV according to patient size (this includes techniques or standardized protocols for targeted exams where dose is matched to indication/reason for exam; i.e. extremities or head) *Use of iterative reconstruction technique DLP: 622 mGy-cm FINDINGS: LUNG BASES: The visualized lung bases are unremarkable. LIVER, GALLBLADDER, AND BILIARY TREE: Normal liver size, smooth contour. No focal hepatic lesion or biliary ductal dilatation is present. The gallbladder is unremarkable with no evidence of radiopaque gallstones, gallbladder wall thickening, or obvious pericholecystic inflammatory changes. PANCREAS: Unremarkable. SPLEEN: Unremarkable ADRENAL GLANDS: Stable left adrenal cystic lesion measuring approximately 2 cm, unchanged from the prior imaging. Right adrenal gland appears unremarkable. KIDNEYS AND URETERS: Redemonstrated is a small right renal subcapsular fluid/hematoma, not significantly changed from prior. No renal calculi, hydronephrosis, hydroureter or perinephric stranding. BLADDER: Unremarkable. GASTROINTESTINAL TRACT: Scattered colonic diverticuli. No findings to suggest diverticulitis. No bowel wall thickening or inflammatory changes seen. The stomach and small bowel are nondistended. Moderate esophageal hernia. Appendix appears unremarkable. No inflammatory changes in the mesentery, no free fluid or free air. ABDOMINAL WALL: Status post mesh. Scattered subcutaneous injection granulomas. LYMPH NODES: No enlarged lymph nodes are seen in the abdomen or pelvis. VASCULAR: Redemonstrated is a left common iliac vein stent. No acute findings. PELVIC VISCERA: Status post hysterectomy, oophorectomy. No free fluid or pelvic masses identified. OSSEOUS STRUCTURES: Sacral spinal stimulator leads are again noted. Generator overlying the right buttocks. Stable slight superior depression of L2 vertebral body. CT/CT abdomen pelvis w con IMPRESSION: 1. Colonic diverticulosis without diverticulitis. No bowel obstruction. Appendix appears unremarkable. No inflammatory changes in the bowel or mesentery. 2. Additional findings, unchanged from the prior study of 03/10/2021, as detailed above. 3. Stable slight superior depression of L2 vertebral body.
[2021-03-18 08:32] VITALS: BP 130/86; BP 142/90; PULSE 107; PULSE 83; RESP 16; TEMP 37.1; O2SAT 97; BMI 33.7
--- NOTE | 2021-03-18 09:58 | ECG_ITS ---
Test Reason : CHECK CARDIAC STATUS Blood Pressure : / mmHG Vent. Rate : 070 BPM Atrial Rate : 070 BPM P-R Int : 124 ms QRS Dur : 066 ms QT Int : 410 ms P-R-T Axes : 004 038 039 degrees QTc Int : 442 ms Normal sinus rhythm Normal ECG When compared with ECG of 04-MAR-2021 17:51, Nonspecific T wave abnormality is no longer Present Referred By: Yumiko Chambers Electronically Signed By:RAMILA JONES
--- NOTE | 2021-03-18 10:05 | ED.NAVMDI ---
HPI - Nausea/Vomiting/Diarrhea General Chief complaint: Nausea/Vomiting/Diarrhea Stated complaint: diarrhea Time Seen by Provider: 03/18/21 09:58 Source: patient Mode of arrival: EMS History of Present Illness HPI Narrative: 61-year-old female with complaints of decreased appetite, nausea and vomiting, multiple episodes of diarrhea that are nonbloody but otherwise denies any shortness of breath, chest pain/palpitations or urinary pain/burning/frequency. Related Data Home Medications Medication Instructions Recorded Confirmed atorvastatin 40 mg tablet 40 mg PO DAILY 10/11/20 03/18/21 buspirone 7.5 mg tablet 7.5 mg PO BID 10/11/20 03/18/21 clonazepam 0.5 mg tablet 0.25 mg PO TID tab 10/11/20 03/18/21 famotidine 20 mg tablet 20 mg PO BID 10/11/20 03/18/21 warfarin 5 mg tablet 5 mg PO DAILY tab 10/11/20 03/18/21 amitriptyline 10 mg tablet 1 tab PO BEDTIME 03/10/21 03/18/21 cetirizine 10 mg tablet 1 tab PO DAILY 03/10/21 03/10/21 folic acid 400 mcg tablet 1 tab PO DAILY 03/10/21 03/18/21 brexpiprazole 1 mg tablet (Rexulti) mg 03/18/21 docusate sodium 100 mg capsule 1 cap PO DAILY 03/18/21 03/18/21 escitalopram oxalate 20 mg tablet 20 mg PO DAILY 03/18/21 03/18/21 hydroxyzine HCl 25 mg tablet 25 mg PO BEDTIME 03/18/21 03/18/21 ramelteon 8 mg tablet 8 mg PO BEDTIME 03/18/21 03/18/21 Previous Rx's Medication Instructions Recorded acetaminophen 500 mg capsule 1,000 mg PO Q6H PRN 7 Days #60 cap 11/09/20 cefuroxime axetil 250 mg tablet 250 mg PO BID 7 Days #14 tab 03/10/21 Allergies Allergy/AdvReac Type Severity Reaction Status Date / Time aspirin [ASPIRIN] Allergy Intermediate CAN'T Verified 03/18/21 08:32 TAKE- ON WARFARIN Review of Systems Review of Systems: Pertinent positives and negatives as stated in HPI 10 point review of systems is otherwise negative. PMFSH Past Medical History Source: nursing notes reviewed Medical History Atrial fibrillation Bipolar 1 disorder Chronic venous insufficiency Diverticulosis History of DVT (deep vein thrombosis) History of pulmonary embolism Hyperlipidemia PAD (peripheral artery disease) Stress incontinence Surgical History History of cystoscopy History of lithotripsy History of surgery History of ventral hernia repair Hx of heart surgery Hx of oral surgery Status post ablation of incompetent vein using laser (12/16/20) Family History Family History Mother No problems noted. Father No problems noted. Social History Social History Alcohol intake: never Patient Tobacco Use Status: Current someday Tobacco user Cigarette Packs Per Day: 1 Cigarettes Per Day: 20.0 Years Smoked: 3 Advance Directives: No Advance Directives Information Provided: No Physical Exam Vital Signs: Vital Signs: Last Vital Signs Temp 98.8 F 03/18/21 08:32 Pulse 83 03/18/21 08:32 Resp 16 03/18/21 08:32 BP 130/86 03/18/21 08:32 Pulse Ox 97 03/18/21 08:32 Body Mass Index 33.7 VITAL SIGNS: Reviewed. GENERAL: Well developed, well nourished, in no acute distress. HEAD: Normocephalic/atraumatic EYES: PERRLA, EOMI OROPHARYNX: no oral lesions noted, posterior pharynx clear, dry mucosa NECK: Supple, no adenopathy LUNGS: Normal breath sounds. No adventitious sounds or accessory muscle use. SpO2<97> CARDIOVASCULAR: Regular rate and rhythm without noted murmurs, no JVD or lower extremity edema. ABDOMEN: Soft, diffusely tender on palpation,, non-distended with bowel sounds. SKIN: Inspection of the skin reveals no rashes NEUROLOGIC: Alert and oriented x 4. Strength and sensation to light touch were grossly intact x 4. Course Course Course Narrative: 61-year-old female with history and clinical presentation initially concerning for possible obstruction or colitis, but appears to have been recently scanned on 03/10 for similar presentation complaints and noted to have a positive urinalysis discharged on antibiotics and now presents with similar symptoms. Review of all investigations negative for evidence of C diff colitis or infectious etiology, but patient has continued to have multiple episodes of diarrhea. Patient received IV fluid hydration and due to multiple visits over the past 2 weeks for similar symptoms will admit due to continued risk of dehydration and poor p.o. intake for further investigation by Gastroenterology. Stool studies have been sent. I discussed the case with inpatient hospitalist who accepts admission. MDM - Nausea/Vomiting/Diarrhea Lab Data Result diagrams: 03/18/21 10:28 03/18/21 10:28 Labs: Lab Results 03/18/21 03/18/21 03/18/21 Range/Units 10:28 10:28 10:28 WBC 8.9 (4.8-10.8) X10*3/uL RBC 4.08 L (4.20-5.50) X10*6/uL Hgb 12.3 (12.0-16.0) g/dl Hct 37.5 (37-47) % MCV 91.9 (80-98) fL MCH 30.1 (27.0-33.0) pg MCHC 32.8 (31.0-35.0) g/dl RDW 13.3 (11.0-16.0) % Plt Count 237 D (160-400) X10*3/uL MPV 11.9 (9.4-12.3) fL Immature Gran % (Auto) 0.2 (0.0-0.4) % Neut % (Auto) 76.4 H (45-73) % Lymph % (Auto) 13.8 L (20-40) % [place] % (Auto) 6.4 (2-11) % Eos % (Auto) 2.6 (0-4) % Baso % (Auto) 0.6 (0-2) % Lymph # (Auto) 1.2 (1.2-4.9) X10*3/uL [place] # (Auto) 0.6 (0.1-1.2) X10*3/uL Eos # (Auto) 0.2 (0.0-0.4) X10*3/uL Baso # (Auto) 0.1 (0.0-0.2) X10*3/uL Abs Immat Gran (auto) 0.02 (0.00-0.03) X10*3/uL Absolute Neuts (auto) 6.8 (2.0-8.3) X10*3/uL Absolute Nucleated RBC 0.000 (0.0-0.012) X10*3/uL Nucleated RBC % (auto) 0.0 (0.0-0.2) /100WBC PT 26.9 H D (9.9-13.0) SEC INR 2.3 H (0.9-1.1) APTT 48.6 H (24.1-38.0) SEC Sodium 144 (135-145) mmol/L Potassium 4.3 (3.3-5.1) mmol/L Chloride 113 H (96-108) mmol/L Carbon Dioxide 24 (22-29) mmol/L Anion Gap 11 L (12-20) BUN 16 (9-16) mg/dL Creatinine 0.65 (0.5-1.4) mg/dL Estim Creat Clear Calc 85.3 Estimated GFR > 60 Random Glucose 97 (60-115) mg/dL Lactic Acid (0.5-2.0) mmol/L Calcium 9.0 (8.4-10.2) mg/dL Total Bilirubin 0.4 (0.0-1.0) mg/dL AST 17 (5-31) U/L ALT 16 (0-31) U/L Alkaline Phosphatase 123 H (39-117) U/L Total Protein 6.6 (6.5-8.0) g/dL Albumin 4.0 (3.5-5.0) g/dL Stool Leukocytes, Qual (NEGATIVE) C. difficile Tox B Gene (Negative) COVID-19 ([place]) (Negative) COVID-19 Clin Com 03/18/21 03/18/21 03/18/21 Range/Units 10:28 10:56 13:29 WBC (4.8-10.8) X10*3/uL RBC (4.20-5.50) X10*6/uL Hgb (12.0-16.0) g/dl Hct (37-47) % MCV (80-98) fL MCH (27.0-33.0) pg MCHC (31.0-35.0) g/dl RDW (11.0-16.0) % Plt Count (160-400) X10*3/uL MPV (9.4-12.3) fL Immature Gran % (Auto) (0.0-0.4) % Neut % (Auto) (45-73) % Lymph % (Auto) (20-40) % [place] % (Auto) (2-11) % Eos % (Auto) (0-4) % Baso % (Auto) (0-2) % Lymph # (Auto) (1.2-4.9) X10*3/uL [place] # (Auto) (0.1-1.2) X10*3/uL Eos # (Auto) (0.0-0.4) X10*3/uL Baso # (Auto) (0.0-0.2) X10*3/uL Abs Immat Gran (auto) (0.00-0.03) X10*3/uL Absolute Neuts (auto) (2.0-8.3) X10*3/uL Absolute Nucleated RBC (0.0-0.012) X10*3/uL Nucleated RBC % (auto) (0.0-0.2) /100WBC PT (9.9-13.0) SEC INR (0.9-1.1) APTT (24.1-38.0) SEC Sodium (135-145) mmol/L Potassium (3.3-5.1) mmol/L Chloride (96-108) mmol/L Carbon Dioxide (22-29) mmol/L Anion Gap (12-20) BUN (9-16) mg/dL Creatinine (0.5-1.4) mg/dL Estim Creat Clear Calc Estimated GFR Random Glucose (60-115) mg/dL Lactic Acid 1.0 (0.5-2.0) mmol/L Calcium (8.4-10.2) mg/dL Total Bilirubin (0.0-1.0) mg/dL AST (5-31) U/L ALT (0-31) U/L Alkaline Phosphatase (39-117) U/L Total Protein (6.5-8.0) g/dL Albumin (3.5-5.0) g/dL Stool Leukocytes, Qual NEGATIVE (NEGATIVE) C. difficile Tox B Gene NEGATIVE (Negative) COVID-19 ([place]) (Negative) COVID-19 Clin Com 03/18/21 Range/Units 14:11 WBC (4.8-10.8) X10*3/uL RBC (4.20-5.50) X10*6/uL Hgb (12.0-16.0) g/dl Hct (37-47) % MCV (80-98) fL MCH (27.0-33.0) pg MCHC (31.0-35.0) g/dl RDW (11.0-16.0) % Plt Count (160-400) X10*3/uL MPV (9.4-12.3) fL Immature Gran % (Auto) (0.0-0.4) % Neut % (Auto) (45-73) % Lymph % (Auto) (20-40) % [place] % (Auto) (2-11) % Eos % (Auto) (0-4) % Baso % (Auto) (0-2) % Lymph # (Auto) (1.2-4.9) X10*3/uL [place] # (Auto) (0.1-1.2) X10*3/uL Eos # (Auto) (0.0-0.4) X10*3/uL Baso # (Auto) (0.0-0.2) X10*3/uL Abs Immat Gran (auto) (0.00-0.03) X10*3/uL Absolute Neuts (auto) (2.0-8.3) X10*3/uL Absolute Nucleated RBC (0.0-0.012) X10*3/uL Nucleated RBC % (auto) (0.0-0.2) /100WBC PT (9.9-13.0) SEC INR (0.9-1.1) APTT (24.1-38.0) SEC Sodium (135-145) mmol/L Potassium (3.3-5.1) mmol/L Chloride (96-108) mmol/L Carbon Dioxide (22-29) mmol/L Anion Gap (12-20) BUN (9-16) mg/dL Creatinine (0.5-1.4) mg/dL Estim Creat Clear Calc Estimated GFR Random Glucose (60-115) mg/dL Lactic Acid (0.5-2.0) mmol/L Calcium (8.4-10.2) mg/dL Total Bilirubin (0.0-1.0) mg/dL AST (5-31) U/L ALT (0-31) U/L Alkaline Phosphatase (39-117) U/L Total Protein (6.5-8.0) g/dL Albumin (3.5-5.0) g/dL Stool Leukocytes, Qual (NEGATIVE) C. difficile Tox B Gene (Negative) COVID-19 ([place]) Negative (Negative) COVID-19 Clin Com See Note ECG Data Attestation: I personally reviewed and interpreted this ECG as follows: Prior ECG tracings: available for review (03/04/2021 no acute changes on comparison) Interpretation: Normal sinus rhythm, HR -70, no STEMI, IA/QRS/QTC are within normal limits. Discharge Plan Discharge Clinical Impression: Intractable diarrhea, Abdominal discomfort Patient Disposition: Admitted As Inpatient
[2021-03-18] MEDS: ondansetron HCL 4 MG/2 ML VIAL IVPUSH (10:09)
[2021-03-18 10:40] LABS: MANUAL DIFF FLAG NO
[2021-03-18 10:49] LABS: Basophils Absolute Auto 0.1 X10*3/uL (0.0-0.2); Basophils Percent Auto 0.6 % (0-2); Eosinophils Absolute Auto 0.2 X10*3/uL (0.0-0.4); Eosinophils Percent Auto 2.6 % (0-4); Hematocrit 37.5 % (37-47); Hemoglobin 12.3 g/dl (12.0-16.0); Imm Gran Abs Auto 0.02 X10*3/uL (0.00-0.03); Imm Gran Pct Auto 0.2 % (0.0-0.4); Lymphocytes Absolute Auto 1.2 X10*3/uL (1.2-4.9); Lymphocytes Percent Auto 13.8 % (20-40); Mean Corpuscular HGB Conc 32.8 g/dl (31.0-35.0); Mean Corpuscular Hemoglobin 30.1 pg (27.0-33.0); Mean Corpuscular Volume 91.9 fL (80-98); Mean Platelet Volume 11.9 fL (9.4-12.3); Monocytes Absolute Auto 0.6 X10*3/uL (0.1-1.2); Monocytes Percent Auto 6.4 % (2-11); Neutrophils Absolute Auto 6.8 X10*3/uL (2.0-8.3); Neutrophils Percent Auto 76.4 % (45-73); Platelet Count 237 X10*3/uL (160-400); Red Blood Count 4.08 X10*6/uL (4.20-5.50); Red Cell Distribution Width 13.3 % (11.0-16.0); White Blood Count 8.9 X10*3/uL (4.8-10.8)
[2021-03-18 10:58] LABS: INTERNATIONAL NORM RATIO 2.3 (0.9-1.1); Prothrombin Time 26.9 SEC (9.9-13.0)
[2021-03-18 11:00] LABS: Alanine Aminotransferase 16 U/L (0-31); Alkaline Phosphatase 123 U/L (39-117); Anion Gap 11 (12-20); Aspartate Amino Transferase 17 U/L (5-31); Bilirubin Total 0.4 mg/dL (0.0-1.0); Blood Urea Nitrogen 16 mg/dL (9-16); Carbon Dioxide 24 mmol/L (22-29); Chloride 113 mmol/L (96-108); Creatinine Clr Calc Pharmacy 85.3; Estimated Glomerular Filt Rate > 60; Glucose Random 97 mg/dL (60-115); Potassium 4.3 mmol/L (3.3-5.1); Sodium 144 mmol/L (135-145); Total Protein 6.6 g/dL (6.5-8.0)
[2021-03-18 11:01] LABS: Partial Thromboplastin Time 48.6 SEC (24.1-38.0)
[2021-03-18 11:59] LABS: CDiff Gene PCR NEGATIVE (Negative)
[2021-03-18] MEDS: iohexoL 350 MG/ML 100 ML INFUS..BTL IV (12:01)
[2021-03-18] MEDS: 0.9 % Sodium Chloride 2,000 ML 999 ML IV (13:44)
[2021-03-18 14:32] LABS: COVID-19 Test Negative (Negative)
[2021-03-18 14:41] LABS: Leukocytes Stool Qualitative NEGATIVE (NEGATIVE)
[2021-03-18 14:54] LABS: Glucose Urine UA NEG (NEG); Leukocyte Esterase Urine NEG (NEG); Nitrite Urine NEG (NEG); PH 5.5 (5.0-8.0); Specific Gravity - Urine 1.015 (1.005-1.025); Urine Blood NEG (NEG); Urine Ketones NEG (NEG); Urine Protein NEG (NEG-TRACE)
[2021-03-18 14:55] LABS: Appearance Urine CLEAR; Color Urine YELLOW
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
--- NOTE | 2021-03-18 15:14 | PM.IMHP ---
History of Present Illness Date of Service: 03/18/21 Chief Complaint: diarrhea 61F presented with diarrhea. patient states that about 3 weeks ptp she began having suprapubic crampy abdominal pain associated with yellow mucousy high volume diarrhea, at first had some blood, but has since been without blood. she reports about 20 bowel movements per day. denies fever, chills, sick contacts, travel, change in meds or diet. has been constant with no relieving factors. in ED was still having several large volume bowel movements, cdif negative, labs unremarkable. CT abd unremarkable. Review of Systems Review of Systems: Constitutional: Denies fever, denies Chills Eyes: denies blurry vision ENT: denies sore throat CVS: denies chest pain Respiratory: Denies dyspnea GI: see hpi : denies dysuria MSK: denies neck pain Skin: denies rash Neuro: denies specific motor weakness Psych: denies suicidal ideation Endocrine: denies heat/cold intolerance Hematologic: denies easy bleeding Allergy: denies hives [facility] Medical History Bipolar 1 disorder Chronic venous insufficiency Diverticulosis History of DVT (deep vein thrombosis) History of pulmonary embolism Hyperlipidemia PAD (peripheral artery disease) Stress incontinence Umbilical hernia Varicose veins of left lower extremity with inflammation Ventral hernia Family History Mother No problems noted. Father No problems noted. Family history: reviewed and not pertinent Surgical History History of cystoscopy History of lithotripsy History of surgery History of ventral hernia repair Hx of heart surgery Hx of oral surgery Status post ablation of incompetent vein using laser (12/16/20) Social History (Updated 03/18/21 @ 15:17 by Sam Jorge MD) Alcohol intake: never Patient Tobacco Use Status: Current someday Tobacco user Cigarette Packs Per Day: 1 Cigarettes Per Day: 20.0 Years Smoked: 3 Smoked in Last 30 Days: No Use of substances other than those prescribed or required for medical reasons: No Advance Directives: No Advance Directives Information Provided: No Meds Allergies Allergy/AdvReac Type Severity Reaction Status Date / Time aspirin [ASPIRIN] Allergy Intermediate CAN'T Verified 03/18/21 08:32 TAKE- ON WARFARIN Active Medications: Current Medications Generic Name Dose Route Start Last Admin Trade Name Freq PRN Reason Stop Dose Admin Acetaminophen 650 mg 03/18/21 15:12 Acetaminophen 325 Mg Tablet PO Q6H PRN pain Amitriptyline HCl 10 mg 03/18/21 21:00 Amitriptyline Hcl 10 Mg Tablet PO BEDTIME NAUN Atorvastatin Calcium 40 mg 03/19/21 09:00 Atorvastatin Calcium 40 Mg Tablet PO DAILY NAUN Buspirone HCl 7.5 mg 03/18/21 21:00 Buspirone Hcl 5 Mg Tablet PO BID NAUN Clonazepam 0.25 mg 03/18/21 21:00 Clonazepam 0.5 Mg Tablet PO TID NAUN Escitalopram Oxalate 20 mg 03/19/21 09:00 Escitalopram Oxalate 20 Mg Tablet PO DAILY NAUN Famotidine 20 mg 03/18/21 21:00 Famotidine 20 Mg Tablet PO BID NAUN Hydroxyzine HCl 25 mg 03/18/21 21:00 Hydroxyzine Hcl 25 Mg Tablet PO BEDTIME NAUN Sodium Chloride 2,000 mls @ 999 mls/hr 03/18/21 13:16 03/18/21 13:44 Ns IV 03/18/21 15:16 999 mls/hr .Q2H1M STA Administration Levofloxacin 500 mg in 100 mls @ 100 mls/hr 03/18/21 16:00 Levaquin IV Q24H NAUN Lactated Ringer's 1,000 mls @ 100 mls/hr 03/18/21 15:15 Lr IVCONT .Q10H NAUN Loperamide HCl 2 mg 03/18/21 15:03 Loperamide Hcl 2 Mg Capsule PO Q4H PRN diarrhea Non-Formulary Medication 1 tab 03/19/21 09:00 Folic Acid PO DAILY NAUN Non-Formulary Medication 8 mg 03/18/21 21:00 Ramelteon PO BEDTIME NAUN Sodium Chloride 3 ml 03/18/21 16:00 0.9 % Sodium Chloride Flush 3 Ml Syringe IVFLUSH QSHIFT NAUN Warfarin Sodium 5 mg 03/19/21 09:00 Warfarin Sodium 5 Mg Tablet PO DAILY NAUN Zinc Oxide 1 appl 03/18/21 15:03 Zinc Oxide 20% Ointment 28.35 Gm Tube TOPICAL TID PRN bm Protocol Home Medications Medication Instructions Recorded Confirmed Last Taken Type atorvastatin 40 mg tablet 40 mg PO DAILY 10/11/20 03/18/21 03/10/21 History buspirone 7.5 mg tablet 7.5 mg PO BID 10/11/20 03/18/21 03/10/21 History clonazepam 0.5 mg tablet 0.25 mg PO TID tab 10/11/20 03/18/21 03/10/21 History famotidine 20 mg tablet 20 mg PO BID 10/11/20 03/18/21 11/09/20 06:00 History warfarin 5 mg tablet 5 mg PO DAILY tab 10/11/20 03/18/21 Unknown History amitriptyline 10 mg tablet 1 tab PO BEDTIME 03/10/21 03/18/21 03/09/21 History cetirizine 10 mg tablet 1 tab PO DAILY 03/10/21 03/10/21 03/10/21 History folic acid 400 mcg tablet 1 tab PO DAILY 03/10/21 03/18/21 03/10/21 History brexpiprazole 1 mg tablet (Rexulti) mg 03/18/21 Unknown History docusate sodium 100 mg capsule 1 cap PO DAILY 03/18/21 03/18/21 Unknown History escitalopram oxalate 20 mg tablet 20 mg PO DAILY 03/18/21 03/18/21 Unknown History hydroxyzine HCl 25 mg tablet 25 mg PO BEDTIME 03/18/21 03/18/21 Unknown History ramelteon 8 mg tablet 8 mg PO BEDTIME 03/18/21 03/18/21 Unknown History Physical Exam Vital Signs and Narrative: Vital Signs: Last Vital Signs Temp 98.8 F 03/18/21 08:32 Pulse 83 03/18/21 08:32 Resp 16 03/18/21 08:32 BP 130/86 03/18/21 08:32 Pulse Ox 97 03/18/21 08:32 Body Mass Index 33.7 General: dry appearing, tremulous HEENT: atraumatic Neck: normal to visual inspection CVS: S1, S2, RRR Resp: CTA bilateral Chest: non tender GI: soft, non tender, non distended, excoriated perianal region : no CVA tenderness Skin: no rashes Extremities: no edema Neuro: Oriented X3, grossly intact Psych: cooperative Results Labs CBC and Chem 7: 03/18/21 10:28 03/18/21 10:28 Labs: Laboratory Results - last 24 hr 03/18/21 03/18/21 03/18/21 10:28 10:28 10:28 MCV 91.9 MCH 30.1 MCHC 32.8 RDW 13.3 Plt Count 237 D MPV 11.9 Immature Gran % (Auto) 0.2 Neut % (Auto) 76.4 H Lymph % (Auto) 13.8 L [place] % (Auto) 6.4 Eos % (Auto) 2.6 Baso % (Auto) 0.6 Lymph # (Auto) 1.2 [place] # (Auto) 0.6 Eos # (Auto) 0.2 Baso # (Auto) 0.1 Abs Immat Gran (auto) 0.02 Absolute Neuts (auto) 6.8 Absolute Nucleated RBC 0.000 Nucleated RBC % (auto) 0.0 PT 26.9 H D INR 2.3 H APTT 48.6 H Anion Gap 11 L Estim Creat Clear Calc 85.3 Estimated GFR > 60 Random Glucose 97 Lactic Acid Calcium 9.0 Total Bilirubin 0.4 AST 17 ALT 16 Alkaline Phosphatase 123 H Total Protein 6.6 Albumin 4.0 Urine Color Urine Appearance Urine pH Ur Specific [place] Urine Protein Urine Glucose (UA) Urine Ketones Urine Blood Urine Nitrite Ur Leukocyte Esterase Stool Leukocytes, Qual C. difficile Tox B Gene COVID-19 ([place]) COVID-LC [email or web address] 03/18/21 03/18/21 03/18/21 10:28 10:56 13:29 MCV MCH MCHC RDW Plt Count MPV Immature Gran % (Auto) Neut % (Auto) Lymph % (Auto) [place] % (Auto) Eos % (Auto) Baso % (Auto) Lymph # (Auto) [place] # (Auto) Eos # (Auto) Baso # (Auto) Abs Immat Gran (auto) Absolute Neuts (auto) Absolute Nucleated RBC Nucleated RBC % (auto) PT INR APTT Anion Gap Estim Creat Clear Calc Estimated GFR Random Glucose Lactic Acid 1.0 Calcium Total Bilirubin AST ALT Alkaline Phosphatase Total Protein Albumin Urine Color Urine Appearance Urine pH Ur Specific [place] Urine Protein Urine Glucose (UA) Urine Ketones Urine Blood Urine Nitrite Ur Leukocyte Esterase Stool Leukocytes, Qual NEGATIVE C. difficile Tox B Gene NEGATIVE COVID-19 ([place]) COVID-LC [email or web address] 03/18/21 03/18/21 14:11 14:41 MCV MCH MCHC RDW Plt Count MPV Immature Gran % (Auto) Neut % (Auto) Lymph % (Auto) [place] % (Auto) Eos % (Auto) Baso % (Auto) Lymph # (Auto) [place] # (Auto) Eos # (Auto) Baso # (Auto) Abs Immat Gran (auto) Absolute Neuts (auto) Absolute Nucleated RBC Nucleated RBC % (auto) PT INR APTT Anion Gap Estim Creat Clear Calc Estimated GFR Random Glucose Lactic Acid Calcium Total Bilirubin AST ALT Alkaline Phosphatase Total Protein Albumin Urine Color YELLOW Urine Appearance CLEAR Urine pH 5.5 Ur Specific [place] 1.015 Urine Protein NEG Urine Glucose (UA) NEG Urine Ketones NEG Urine Blood NEG Urine Nitrite NEG Ur Leukocyte Esterase NEG Stool Leukocytes, Qual C. difficile Tox B Gene COVID-19 ([place]) Negative COVID-19 Clin Com See Note Imaging Radiologist's Impressions: Impressions Abdomen/Pelvis CT 03/18/21 10:04 IMPRESSION: 1. Colonic diverticulosis without diverticulitis. No bowel obstruction. Appendix appears unremarkable. No inflammatory changes in the bowel or mesentery. 2. Additional findings, unchanged from the prior study of 03/10/2021, as detailed above. 3. Stable slight superior depression of L2 vertebral body. Assessment and Plan (1) Intractable diarrhea: Status: Acute 61F presented with about 3 weeks diarrhea prolonged acute watery diarrhea at risk for dehydration place on observation, IV fluids, imodium, empiric levaquin, follow up cultures, barrier cream history of unprovoked DVT/PE coumadin, monitor INR hld statin mood disorder lexapro, atarax, klonipin. Quality Stroke Does the patient have a stroke diagnosis?: No VTE Prior VTE?: Yes VTE Risk Level:: Medical - moderate - high VTE Device Contraindication: Treatment Not Indicated VTE Drug Contraindication: N/A - Med Ordered
[2021-03-18] MEDS: Loperamide HCl 2 MG CAPSULE 4 MG PO (16:19)
[2021-03-18 16:20] VITALS: BP 126/69; PULSE 81; RESP 15; TEMP 37.1; O2SAT 98
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
[2021-03-18 16:47] VITALS: BP 152/76; PULSE 75; RESP 18; TEMP 36.1; O2SAT 96
[2021-03-18] MEDS: levoFLOXacin/D5W 500 MG/100 ML PIGGYBACK 100 MG IV (17:37)
[2021-03-18] MEDS: Lactated Ringers 1,000 ML 100 ML IVCONT (17:38)
[2021-03-18] MEDS: 0.9 % Sodium Chloride Flush 3 ML SYRINGE IVFLUSH (17:38)
[2021-03-18 19:15] VITALS: BP 121/67; PULSE 68; RESP 14; TEMP 36.6; O2SAT 97
[2021-03-18] MEDS: Acetaminophen 325 MG TABLET 650 MG PO (19:27)
[2021-03-18] MEDS: Famotidine 20 MG TABLET PO (21:17)
[2021-03-18] MEDS: Amitriptyline HCl 10 MG TABLET PO (21:17)
[2021-03-18] MEDS: hydrOXYzine HCL 25 MG TABLET PO (21:17)
[2021-03-18] MEDS: clonazePAM 0.5 MG TABLET 0.25 MG PO (21:17)
[2021-03-18] MEDS: busPIRone HCl 5 MG TABLET 7.5 MG PO (21:18)
[2021-03-18 23:50] VITALS: BP 140/83; PULSE 75; RESP 16; TEMP 36.1; O2SAT 96
[2021-03-19 03:09] VITALS: BP 115/61; PULSE 71; RESP 18; TEMP 36.3; O2SAT 96
[2021-03-19] MEDS: Lactated Ringers 1,000 ML 100 ML IVCONT ×2 (06:42→17:40)
[2021-03-19 06:49] LABS: Hematocrit 36.8 % (37-47); Hemoglobin 11.9 g/dl (12.0-16.0); Mean Corpuscular HGB Conc 32.3 g/dl (31.0-35.0); Mean Corpuscular Hemoglobin 29.8 pg (27.0-33.0); Mean Platelet Volume 12.4 fL (9.4-12.3); Platelet Count 219 X10*3/uL (160-400); Red Cell Distribution Width 13.2 % (11.0-16.0); White Blood Count 6.9 X10*3/uL (4.8-10.8)
[2021-03-19 06:56] LABS: INTERNATIONAL NORM RATIO 2.3 (0.9-1.1); Prothrombin Time 26.6 SEC (9.9-13.0)
[2021-03-19 07:12] LABS: Anion Gap 12 (12-20); Blood Urea Nitrogen 9 mg/dL (9-16); Calcium 8.8 mg/dL (8.4-10.2); Carbon Dioxide 24 mmol/L (22-29); Chloride 112 mmol/L (96-108); Estimated Glomerular Filt Rate > 60; Glucose Fasting 93 mg/dL (60-99); Magnesium 1.9 mg/dL (1.6-2.6); Sodium 144 mmol/L (135-145)
[2021-03-19] MEDS: Acetaminophen 325 MG TABLET 650 MG PO ×2 (07:22→19:12)
[2021-03-19 08:00] VITALS: BP 134/79; PULSE 95; RESP 18; TEMP 36.4; O2SAT 98
[2021-03-19] MEDS: Atorvastatin Calcium 40 MG TABLET PO (09:23)
[2021-03-19] MEDS: clonazePAM 0.5 MG TABLET 0.25 MG PO ×3 (09:23→20:30)
[2021-03-19] MEDS: Folic Acid 1 MG TABLET PO (09:23)
[2021-03-19] MEDS: Escitalopram Oxalate 20 MG TABLET PO (09:23)
[2021-03-19] MEDS: Famotidine 20 MG TABLET PO ×2 (09:23→20:30)
[2021-03-19] MEDS: busPIRone HCl 5 MG TABLET 7.5 MG PO ×2 (09:24→20:30)
[2021-03-19] MEDS: Warfarin Sodium 5 MG TABLET PO (09:28)
--- NOTE | 2021-03-19 10:37 | MHC.CM.PN ---
TAE 03/19/21, EMR REVIEWED, PT ADMITTED TO OBS FRO INTRACTABLE DIARRHEA, PT NEGATIVE FOR CDIF, CM MET W/PT WHO IS A&O, PT REPORTS SHE LIVES W/ROOMMATE AND ROOMMATES MOTHER, PT IS INDEPENDENT W/CARE, USES A CANE/WALKER AND HAS NO NO HOME SERVICES, PT DOES HAVE A DIAGNOSIS OF BIPOLAR DISORDER AND REPORTS SHE DOES HAVE A PSYCHIATRIST [facility] AT [address] [place] [address] AND A THERAPIST MELIDA WHO SHE SEES EVERY SATURDAY, PT REPORTS SHE CURRENTLY FEELS STABLE ON CURRENT MEDS HOWEVER IS ANXIOUS. PT VERIFIES PCP AND HCP IS ON FILE. PT REPORTS SHE WOULD LIKE STR AND PREFERS [facility] HOWEVER THEY ARE NO LONGER OPEN, CM WILL BRING PT A PRINTOUT OF SNF OPTIONS AND REVIEW W/PT. D/C PLAN STR, ACTION FOR TRANSPORT PCP: SUHAS WADE HCP: JAS MCCLELLAND [phone]
--- NOTE | 2021-03-19 11:08 | HO.PM.IMPN ---
Subjective Subjective Date of Service: 03/19/21 Interval History: diarrhea improved Cardiovascular Cardiovascular: Reports no additional cardiovascular complaints Respiratory Respiratory: Reports no additional respiratory complaints Physical Exam Vital Signs: Vital Signs: Last Vital Signs Temp 97.6 F 03/19/21 08:00 Pulse 95 03/19/21 08:00 Resp 18 03/19/21 08:00 BP 134/79 03/19/21 08:00 Pulse Ox 98 03/19/21 08:00 Body Mass Index 33.7 General: AO X 3, no acute distress Resp: CTA bilateral CVS: S1,S2,RRR GI: soft, non tender, non distended Neuro: motor grossly intact Psych: appropriate affect Objective Data Active Medications Acetaminophen (Acetaminophen 325 Mg Tablet) 650 mg PO Q6H PRN PRN Reason: pain Last Admin: 03/19/21 07:22 Dose: 650 mg Documented by: JERRY Amitriptyline HCl (Amitriptyline Hcl 10 Mg Tablet) 10 mg PO BEDTIME [facility] Last Admin: 03/18/21 21:17 Dose: 10 mg Documented by: ROMAN Atorvastatin Calcium (Atorvastatin Calcium 40 Mg Tablet) 40 mg PO DAILY [facility] Last Admin: 03/19/21 09:23 Dose: 40 mg Documented by: JERRY Buspirone HCl (Buspirone Hcl 5 Mg Tablet) 7.5 mg PO BID [facility] Last Admin: 03/19/21 09:24 Dose: 7.5 mg Documented by: JRERY Clonazepam (Clonazepam 0.5 Mg Tablet) 0.25 mg PO TID [facility] Last Admin: 03/19/21 09:23 Dose: 0.25 mg Documented by: JERRY Escitalopram Oxalate (Escitalopram Oxalate 20 Mg Tablet) 20 mg PO DAILY [facility] Last Admin: 03/19/21 09:23 Dose: 20 mg Documented by: JERRY Famotidine (Famotidine 20 Mg Tablet) 20 mg PO BID [facility] Last Admin: 03/19/21 09:23 Dose: 20 mg Documented by: JERRY Folic Acid (Folic Acid 1 Mg Tablet) 1 mg PO DAILY [facility] Last Admin: 03/19/21 09:23 Dose: 1 mg Documented by: JERRY Hydroxyzine HCl (Hydroxyzine Hcl 25 Mg Tablet) 25 mg PO BEDTIME [facility] Last Admin: 03/18/21 21:17 Dose: 25 mg Documented by: ROMAN Levofloxacin (Levaquin) 500 mg in 100 mls @ 100 mls/hr IV Q24H [facility] Last Infusion: 03/18/21 19:25 Dose: 0 mls/hr Documented by: ROMAN Lactated Ringer's (Lr) 1,000 mls @ 100 mls/hr IVCONT .Q10H [facility] Last Admin: 03/19/21 06:42 Dose: 100 mls/hr Documented by: ROMAN Loperamide HCl (Loperamide Hcl 2 Mg Capsule) 2 mg PO Q4H PRN PRN Reason: diarrhea Non-Formulary Medication (Ramelteon) 8 mg PO BEDTIME [facility] Sodium Chloride (0.9 % Sodium Chloride Flush 3 Ml Syringe) 3 ml IVFLUSH QSHIFT [facility] Last Admin: 03/19/21 07:19 Dose: Not Given Documented by: JERRY Non-Admin Reason: IV Running Warfarin Sodium (Warfarin Sodium 5 Mg Tablet) 5 mg PO DAILY [facility] Last Admin: 03/19/21 09:28 Dose: 5 mg Documented by: JERRY Zinc Oxide (Zinc Oxide 20% Ointment 28.35 Gm Tube) 1 appl TOPICAL TID PRN; Protocol PRN Reason: bm Labs CBC & Chem 7: 03/19/21 06:12 03/19/21 06:12 Labs: Laboratory Results - last 24 hr 03/18/21 03/18/21 03/18/21 10:56 13:29 14:11 MCV MCH MCHC RDW Plt Count MPV Absolute Nucleated RBC Nucleated RBC % (auto) PT INR Anion Gap Estim Creat Clear Calc Estimated GFR Fasting Glucose Calcium Magnesium Urine Color Urine Appearance Urine pH Ur Specific Whitman Urine Protein Urine Glucose (UA) Urine Ketones Urine Blood Urine Nitrite Ur Leukocyte Esterase Stool Leukocytes, Qual NEGATIVE C. difficile Tox B Gene NEGATIVE COVID-19 ([place]) Negative COVID-19 Clin Com See Note 03/18/21 03/19/21 03/19/21 14:41 06:12 06:12 MCV 92.0 MCH 29.8 MCHC 32.3 RDW 13.2 Plt Count 219 MPV 12.4 H Absolute Nucleated RBC 0.000 Nucleated RBC % (auto) 0.0 PT 26.6 H INR 2.3 H Anion Gap Estim Creat Clear Calc Estimated GFR Fasting Glucose Calcium Magnesium Urine Color YELLOW Urine Appearance CLEAR Urine pH 5.5 Ur Specific Whitman 1.015 Urine Protein NEG Urine Glucose (UA) NEG Urine Ketones NEG Urine Blood NEG Urine Nitrite NEG Ur Leukocyte Esterase NEG Stool Leukocytes, Qual C. difficile Tox B Gene COVID-19 ([place]) COVID-19 [facility] Com 03/19/21 06:12 MCV MCH MCHC RDW Plt Count MPV Absolute Nucleated RBC Nucleated RBC % (auto) PT INR Anion Gap 12 Estim Creat Clear Calc 78.0 Estimated GFR > 60 Fasting Glucose 93 Calcium 8.8 Magnesium 1.9 Urine Color Urine Appearance Urine pH Ur Specific Whitman Urine Protein Urine Glucose (UA) Urine Ketones Urine Blood Urine Nitrite Ur Leukocyte Esterase Stool Leukocytes, Qual C. difficile Tox B Gene COVID-19 ([place]) COVID-19 Clin Com Microbiology Microbiology Results: Microbiology 03/18/21 10:26 Stool Culture - Preliminary Stool Normal so far. Assessment and Plan (1) Intractable diarrhea: Status: Acute Assessment and Plan: ?61F presented with about 3 weeks diarrhea prolonged acute watery diarrhea improved while in hospital can continue IV fluids, imodium, empiric levaquin, follow up cultures, barrier cream patient deconditioned, requesting PT eval for SNF placement history of unprovoked DVT/PE coumadin, monitor INR hld statin mood disorder lexapro, atarax, klonipin. Quality Stroke Does the patient have a stroke diagnosis?: No VTE Prior VTE?: Yes VTE Risk Level:: Medical - moderate - high VTE Device Contraindication: Treatment Not Indicated VTE Drug Contraindication: N/A - Med Ordered
[2021-03-19 11:16] VITALS: BP 126/70; PULSE 67; RESP 17; TEMP 36.3; O2SAT 95
--- NOTE | 2021-03-19 13:34 | MHC.CM.PN ---
CM MET W/PT TO REVIEW SNF OPTIONS, PT REPORTED IF SHE CAN'T GO TO [facility] SHE PREFERS [facility] IN [place] AND HAS NO PREFERENCE WHICH BUILDING, REFERRAL SENT VIA [facility]. D/C PLAN: STR W/ACTION FOR TRANSPORT
[2021-03-19] MEDS: Nicotine 21 MG PATCH.TD24 TRANSDERMA (15:00)
[2021-03-19] MEDS: levoFLOXacin/D5W 500 MG/100 ML PIGGYBACK 100 MG IV (15:21)
[2021-03-19 15:35] VITALS: BP 114/57; PULSE 70; RESP 18; TEMP 36.5; O2SAT 95
[2021-03-19 20:00] VITALS: BP 142/80; PULSE 63; RESP 16; TEMP 36.1; O2SAT 95
[2021-03-19] MEDS: Amitriptyline HCl 10 MG TABLET PO (20:30)
[2021-03-19] MEDS: hydrOXYzine HCL 25 MG TABLET PO (20:30)
[2021-03-19 23:39] VITALS: BP 124/67; PULSE 60; RESP 20; TEMP 36.3; O2SAT 94
[2021-03-20] VITALS (7 sets, daily range): BP systolic 104–140; BP diastolic 55–83; PULSE 64–94; RESP 15–18; TEMP 36.3–37; O2SAT 93–96
[2021-03-20] MEDS: Lactated Ringers 1,000 ML 100 ML IVCONT (03:20)
[2021-03-20] MEDS: Acetaminophen 325 MG TABLET 650 MG PO ×2 (03:22→18:02)
[2021-03-20 06:58] LABS: INTERNATIONAL NORM RATIO 2.3 (0.9-1.1); Prothrombin Time 26.5 SEC (9.9-13.0)
[2021-03-20] MEDS: Nicotine 21 MG PATCH.TD24 TRANSDERMA (07:32)
[2021-03-20] MEDS: 0.9 % Sodium Chloride Flush 3 ML SYRINGE IVFLUSH ×2 (07:32→15:28)
[2021-03-20] MEDS: Atorvastatin Calcium 40 MG TABLET PO (07:32)
[2021-03-20] MEDS: clonazePAM 0.5 MG TABLET 0.25 MG PO ×3 (07:32→19:38)
[2021-03-20] MEDS: Famotidine 20 MG TABLET PO ×2 (07:33→19:38)
[2021-03-20] MEDS: Folic Acid 1 MG TABLET PO (07:33)
[2021-03-20] MEDS: Warfarin Sodium 5 MG TABLET PO (07:33)
[2021-03-20] MEDS: busPIRone HCl 5 MG TABLET 7.5 MG PO ×2 (07:33→19:37)
[2021-03-20] MEDS: Escitalopram Oxalate 20 MG TABLET PO (07:33)
--- NOTE | 2021-03-20 11:08 | HO.PM.IMPN ---
Subjective Subjective Date of Service: 03/20/21 Interval History: still reporting some diarrhea Cardiovascular Cardiovascular: Reports no additional cardiovascular complaints Respiratory Respiratory: Reports no additional respiratory complaints Physical Exam Vital Signs: Vital Signs: Last Vital Signs Temp 97.6 F 03/20/21 07:36 Pulse 65 03/20/21 08:03 Resp 17 03/20/21 07:36 BP 140/79 H 03/20/21 08:03 Pulse Ox 96 03/20/21 08:03 Body Mass Index 33.7 General: AO X 3, no acute distress Resp: CTA bilateral CVS: S1,S2,RRR GI: soft, non tender, non distended Neuro: motor grossly intact Psych: appropriate affect Objective Data Active Medications Acetaminophen (Acetaminophen 325 Mg Tablet) 650 mg PO Q6H PRN PRN Reason: pain Last Admin: 03/20/21 03:22 Dose: 650 mg Documented by: ROMAN Amitriptyline HCl (Amitriptyline Hcl 10 Mg Tablet) 10 mg PO BEDTIME [facility] Last Admin: 03/19/21 20:30 Dose: 10 mg Documented by: ROMAN Atorvastatin Calcium (Atorvastatin Calcium 40 Mg Tablet) 40 mg PO DAILY [facility] Last Admin: 03/20/21 07:32 Dose: 40 mg Documented by: HETAL Buspirone HCl (Buspirone Hcl 5 Mg Tablet) 7.5 mg PO BID [facility] Last Admin: 03/20/21 07:33 Dose: 7.5 mg Documented by: HETAL Clonazepam (Clonazepam 0.5 Mg Tablet) 0.25 mg PO TID [facility] Last Admin: 03/20/21 07:32 Dose: 0.25 mg Documented by: HETAL Escitalopram Oxalate (Escitalopram Oxalate 20 Mg Tablet) 20 mg PO DAILY [facility] Last Admin: 03/20/21 07:33 Dose: 20 mg Documented by: HETAL Famotidine (Famotidine 20 Mg Tablet) 20 mg PO BID [facility] Last Admin: 03/20/21 07:33 Dose: 20 mg Documented by: HETAL Folic Acid (Folic Acid 1 Mg Tablet) 1 mg PO DAILY [facility] Last Admin: 03/20/21 07:33 Dose: 1 mg Documented by: HETAL Hydroxyzine HCl (Hydroxyzine Hcl 25 Mg Tablet) 25 mg PO BEDTIME [facility] Last Admin: 03/19/21 20:30 Dose: 25 mg Documented by: ROMAN Levofloxacin (Levaquin) 500 mg in 100 mls @ 100 mls/hr IV Q24H [facility] Last Infusion: 03/19/21 16:21 Dose: 0 mls/hr Documented by: JERRY Lactated Ringer's (Lr) 1,000 mls @ 100 mls/hr IVCONT .Q10H [facility] Last Admin: 03/20/21 03:20 Dose: 100 mls/hr Documented by: ROMAN Loperamide HCl (Loperamide Hcl 2 Mg Capsule) 2 mg PO Q4H PRN PRN Reason: diarrhea Nicotine (Nicotine 21 Mg Patch.Td24) 21 mg TRANSDERMA DAILY [facility] Last Admin: 03/20/21 07:32 Dose: 21 mg Documented by: HETAL Non-Formulary Medication (Ramelteon) 8 mg PO BEDTIME [facility] Sodium Chloride (0.9 % Sodium Chloride Flush 3 Ml Syringe) 3 ml IVFLUSH QSHIFT [facility] Last Admin: 03/20/21 07:32 Dose: 3 ml Documented by: HETAL Warfarin Sodium (Warfarin Sodium 5 Mg Tablet) 5 mg PO DAILY@1800 [facility] Zinc Oxide (Zinc Oxide 20% Ointment 28.35 Gm Tube) 1 appl TOPICAL TID PRN; Protocol PRN Reason: bm Labs CBC & Chem 7: 03/19/21 06:12 03/19/21 06:12 Labs: Laboratory Results - last 24 hr 03/18/21 03/20/21 10:26 06:06 PT 26.5 H INR 2.3 H Stl Giardia Antigen SEE NOTE Microbiology Microbiology Results: Microbiology 03/18/21 10:26 Stool Culture - Preliminary Stool Normal so far. 03/18/21 10:56 Blood Culture - Preliminary Blood - Venous No growth after 24 hours. 03/18/21 10:28 Blood Culture - Preliminary Blood - Venous No growth after 24 hours. Assessment and Plan (1) Intractable diarrhea: Status: Acute (2) History of DVT (deep vein thrombosis): Status: Acute (3) History of pulmonary embolism: Status: Acute Assessment and Plan: ?61F presented with about 3 weeks diarrhea prolonged acute watery diarrhea improved, still with some diarrhea while in hospital can continue IV fluids, imodium, empiric levaquin day 3/5, stool culture and cdif negative, continue barrier cream patient deconditioned plan for STR at SNF when available history of unprovoked DVT/PE coumadin, monitor INR hld statin mood disorder lexapro, atarax, klonipin. Quality Stroke Does the patient have a stroke diagnosis?: No VTE Prior VTE?: Yes VTE Risk Level:: Medical - moderate - high VTE Device Contraindication: Treatment Not Indicated VTE Drug Contraindication: N/A - Med Ordered
--- NOTE | 2021-03-20 11:47 | MHC.CM.PN ---
PATIENT AWARE THAT [facility] IS NOT OFFERING A BED. PATIENT IS AGREEABLE TO SNF SEARCH [place]. SHE WILL MAKE HER DECISION BASED ON ANY BED OFFERS. PATIENT REPORTS THAT SHE HAS NOT BEEN VACCINATED AGAINST COVID-19 INFORMATION RELAYED TO SNF REFERRALS.
--- NOTE | 2021-03-20 13:58 | MHC.CM.PN ---
NO BED OFFERS OF THIS NOTE. TWO REFERRALS HAVE NOT RESPONDED YET. CASE MANAGEMENT TO RE-ATTEMPT Saturday03/21/21
[2021-03-20] MEDS: levoFLOXacin/D5W 500 MG/100 ML PIGGYBACK 100 MG IV (15:28)
[2021-03-20] MEDS: hydrOXYzine HCL 25 MG TABLET PO (19:38)
[2021-03-20] MEDS: Amitriptyline HCl 10 MG TABLET PO (19:38)
[2021-03-20] MEDS: oxyCODONE HCl Immed Release 5 MG TABLET PO (20:41)
[2021-03-21] VITALS (7 sets, daily range): BP systolic 115–143; BP diastolic 57–85; PULSE 62–72; RESP 16–18; TEMP 36.2–37.2; O2SAT 93–95
[2021-03-21] MEDS: Lactated Ringers 1,000 ML 100 ML IVCONT ×3 (00:21→19:31)
[2021-03-21] MEDS: Acetaminophen 325 MG TABLET 650 MG PO (01:34)
[2021-03-21 07:10] LABS: INTERNATIONAL NORM RATIO 2.6 (0.9-1.1); Prothrombin Time 30.2 SEC (9.9-13.0)
[2021-03-21] MEDS: Loperamide HCl 2 MG CAPSULE PO ×2 (09:01→14:17)
[2021-03-21] MEDS: clonazePAM 0.5 MG TABLET 0.25 MG PO ×3 (09:01→19:27)
[2021-03-21] MEDS: Atorvastatin Calcium 40 MG TABLET PO (09:02)
[2021-03-21] MEDS: Folic Acid 1 MG TABLET PO (09:02)
[2021-03-21] MEDS: Escitalopram Oxalate 20 MG TABLET PO (09:02)
[2021-03-21] MEDS: busPIRone HCl 5 MG TABLET 7.5 MG PO ×2 (09:02→19:27)
[2021-03-21] MEDS: Famotidine 20 MG TABLET PO ×2 (09:03→19:26)
[2021-03-21] MEDS: Nicotine 21 MG PATCH.TD24 TRANSDERMA (09:05)
--- NOTE | 2021-03-21 11:14 | MHC.CM.PN ---
Addendum entered by Charito Harrington 03/21/21 11:22: [facility] FOLLOWING, ALTHOUGH NO BED OPENING YET. REFERRAL EXPANDED TO INCLUDE [facility], [facility], AND [facility]. Original Note: PER HOSPITALIST ROUNDS, PATIENT WITH ABDOMINAL PAIN. WILL ADVANCE DIET AND LIKELY DC TOMORROW (03/22/21) [facility] HUBBARD MADE AWARE. CURRENTLY, THIS IS THE ONLY FACILITY FOLLOWING. THEY HAVE NOT YET CONFIRMED A NON VACCINATED PATIENT BED OFFER
--- NOTE | 2021-03-21 12:08 | P.PNIM_ITS ---
Subjective Subjective Date of Service: 03/21/21 Interval History: Complaining of persistent diarrhea and lower abdominal discomfort, also complaining of mild headache, denies fever, chills, no other acute issues overnight. Review of Systems General no headache, no dizziness, no fever chills. CVS no chest pain, no palpitation. Respiratory no cough, no sob. Gastrointestinal no nausea, no vomiting, lower abdominal pain,diarrhea Physical Exam Vital Signs: Vital Signs: Last Vital Signs Temp 97.7 F 03/21/21 11:23 Pulse 69 03/21/21 11:23 Resp 16 03/21/21 11:23 BP 130/66 03/21/21 11:23 Pulse Ox 95 03/21/21 11:23 Body Mass Index 33.7 General no acute distress. Neck no JVD. CVS regular rate rhythm, Respiratory lungs clear to auscultation, no respiratory distress Gastrointestinal abdomen soft, bowel sounds audible, lower abdominal tenderness with deep palpation, no guarding , no rigidity. Extremities no edema. Neuro nonfocal, speech clear. Skin no rash Objective Data Active Medications Acetaminophen (Acetaminophen 325 Mg Tablet) 650 mg PO Q6H PRN PRN Reason: pain Last Admin: 03/21/21 01:34 Dose: 650 mg Documented by: IGLESIA Amitriptyline HCl (Amitriptyline Hcl 10 Mg Tablet) 10 mg PO BEDTIME [facility] Last Admin: 03/20/21 19:38 Dose: 10 mg Documented by: IGLESIA Atorvastatin Calcium (Atorvastatin Calcium 40 Mg Tablet) 40 mg PO DAILY [facility] Last Admin: 03/21/21 09:02 Dose: 40 mg Documented by: JOVANNI Buspirone HCl (Buspirone Hcl 5 Mg Tablet) 7.5 mg PO BID [facility] Last Admin: 03/21/21 09:02 Dose: 7.5 mg Documented by: JOVANNI Clonazepam (Clonazepam 0.5 Mg Tablet) 0.25 mg PO TID [facility] Last Admin: 03/21/21 09:01 Dose: 0.25 mg Documented by: JOVANNI Escitalopram Oxalate (Escitalopram Oxalate 20 Mg Tablet) 20 mg PO DAILY [facility] Last Admin: 03/21/21 09:02 Dose: 20 mg Documented by: JOVANNI Famotidine (Famotidine 20 Mg Tablet) 20 mg PO BID [facility] Last Admin: 03/21/21 09:03 Dose: 20 mg Documented by: JOVANNI Folic Acid (Folic Acid 1 Mg Tablet) 1 mg PO DAILY [facility] Last Admin: 03/21/21 09:02 Dose: 1 mg Documented by: JOVANNI Hydroxyzine HCl (Hydroxyzine Hcl 25 Mg Tablet) 25 mg PO BEDTIME [facility] Last Admin: 03/20/21 19:38 Dose: 25 mg Documented by: IGLESIA Lactated Ringer's (Lr) 1,000 mls @ 100 mls/hr IVCONT .Q10H [facility] Last Admin: 03/21/21 11:02 Dose: 100 mls/hr Documented by: JOVANNI Loperamide HCl (Loperamide Hcl 2 Mg Capsule) 2 mg PO Q4H PRN PRN Reason: diarrhea Last Admin: 03/21/21 09:01 Dose: 2 mg Documented by: JOVANNI Morphine Sulfate (Morphine Sulfate 2 Mg/Ml Cartridge) 2 mg IVPUSH Q4H PRN; Protocol PRN Reason: Pain, Severe (Pain Scale 7-10) Nicotine (Nicotine 21 Mg Patch.Td24) 21 mg TRANSDERMA DAILY [facility] Last Admin: 03/21/21 09:05 Dose: 21 mg Documented by: JOVANNI Non-Formulary Medication (Ramelteon) 8 mg PO BEDTIME [facility] Sodium Chloride (0.9 % Sodium Chloride Flush 3 Ml Syringe) 3 ml IVFLUSH QSHIFT [facility] Last Admin: 03/21/21 09:01 Dose: Not Given Documented by: JOVANNI Non-Admin Reason: IV Running Warfarin Sodium (Warfarin Sodium 5 Mg Tablet) 5 mg PO DAILY@1800 [facility] Zinc Oxide (Zinc Oxide 20% Ointment 28.35 Gm Tube) 1 appl TOPICAL TID PRN; Protocol PRN Reason: bm Labs CBC & Chem 7: 03/19/21 06:12 03/19/21 06:12 Labs: Laboratory Results - last 24 hr 03/21/21 06:30 PT 30.2 H INR 2.6 H Microbiology Microbiology Results: Microbiology 03/18/21 10:26 Stool Culture - Final Stool 03/18/21 10:56 Blood Culture - Preliminary Blood - Venous No growth after 48 hours. 03/18/21 10:28 Blood Culture - Preliminary Blood - Venous No growth after 48 hours. Assessment and Plan (1) Intractable diarrhea: Status: Acute (2) Current use of anticoagulant therapy: Status: Acute (3) History of DVT (deep vein thrombosis): Status: Acute (4) History of pulmonary embolism: Status: Acute (5) Chronic venous insufficiency: Status: Acute (6) Bipolar 1 disorder: Status: Acute (7) Hyperlipidemia: Status: Acute (8) PAD (peripheral artery disease): Status: Acute Assessment and Plan: 61F presented with about 3 weeks of diarrhea prolonged acute watery diarrhea Persistent diarrhea with abdominal cramping, and mild headache continue IV fluids, change diet to low residue, lactose-free diet, give imodium, dc iv levaquin since no fevers, normal WBC,stool culture and cdif negative, continue barrier cream Recommend out of bed to chair Seen by physical therapy they recommend STR at SNF due to generalized weakness history of unprovoked DVT/PE On coumadin, INR 2.6 hld statin mood disorder Continue lexapro, atarax, klonipin. No acute issues Quality Stroke Does the patient have a stroke diagnosis?: No VTE Prior VTE?: Yes VTE Risk Level:: Medical - moderate - high VTE Device Contraindication: Treatment Not Indicated VTE Drug Contraindication: N/A - Med Ordered
--- NOTE | 2021-03-21 15:10 | MHC.CM.PN ---
THIS COMPUTER FORENSICS ANALYST MET WITH PATIENT WHO IS NOW AWARE OF OBSTACLES TO DISCHARGE TO SNF. (PATIENT IS NOT VACCINATED AGAINST COVID-19) PATIENT IS NOW GIVING PERMISSION FOR THIS COMPUTER FORENSICS ANALYST AND STAFF TO SPEAK WITH ROLLER STAINER, MELIDA (MANUEL) @ [phone]. PLAN IS FOR STR AND THEN RETURN HOME, ALTHOUGH PATIENT MAY NEED TO RETURN HOME WITH [facility] FOR HOME P.T. DURING CONVERSATION, MELIDA ENTERED THE ROOM WITH PATIENT'S PERMISSION. MELIDA (ROLLER STAINER) STATES THAT PATIENT IS SCHEDULED FOR HER COVID19 VACCINE AT [facility]. SCHEDULED DATE IS THIS Saturday03/24/21. MELIDA IS NOW AWARE OF POSSIBLE REHAB VERSUS HOME WITH SERVICES. CASE MANAGEMENT TO PROVIDE UPDATES
[2021-03-21] MEDS: Warfarin Sodium 5 MG TABLET PO (17:54)
[2021-03-21] MEDS: Amitriptyline HCl 10 MG TABLET PO (19:26)
[2021-03-21] MEDS: hydrOXYzine HCL 25 MG TABLET PO (19:26)
[2021-03-21] MEDS: Morphine Sulfate 2 MG/ML CARTRIDGE IVPUSH (19:30)
[2021-03-22] VITALS (7 sets, daily range): BP systolic 100–142; BP diastolic 52–80; PULSE 63–95; RESP 16–20; TEMP 36.4–37.4; O2SAT 92–95
[2021-03-22] MEDS: Morphine Sulfate 2 MG/ML CARTRIDGE IVPUSH ×2 (00:38→08:07)
[2021-03-22] MEDS: Lactated Ringers 1,000 ML 100 ML IVCONT ×3 (05:14→23:10)
[2021-03-22 06:42] LABS: INTERNATIONAL NORM RATIO 2.5 (0.9-1.1); Prothrombin Time 28.6 SEC (9.9-13.0)
[2021-03-22] MEDS: clonazePAM 0.5 MG TABLET 0.25 MG PO ×3 (08:07→20:24)
[2021-03-22] MEDS: Atorvastatin Calcium 40 MG TABLET PO (08:08)
[2021-03-22] MEDS: Loperamide HCl 2 MG CAPSULE PO (08:08)
[2021-03-22] MEDS: Famotidine 20 MG TABLET PO (08:08)
[2021-03-22] MEDS: busPIRone HCl 5 MG TABLET 7.5 MG PO ×2 (08:08→20:25)
[2021-03-22] MEDS: Folic Acid 1 MG TABLET PO (08:08)
[2021-03-22] MEDS: Escitalopram Oxalate 20 MG TABLET PO (08:08)
[2021-03-22] MEDS: 0.9 % Sodium Chloride Flush 3 ML SYRINGE IVFLUSH (08:09)
[2021-03-22] MEDS: Nicotine 21 MG PATCH.TD24 TRANSDERMA (08:09)
[2021-03-22 10:39] LABS: Anion Gap 12 (12-20); Blood Urea Nitrogen 13 mg/dL (9-16); Calcium 8.5 mg/dL (8.4-10.2); Carbon Dioxide 26 mmol/L (22-29); Chloride 107 mmol/L (96-108); Creatinine Clr Calc Pharmacy 75.9; Estimated Glomerular Filt Rate > 60; Glucose Random 93 mg/dL (60-115); Potassium 3.8 mmol/L (3.3-5.1); Sodium 141 mmol/L (135-145)
[2021-03-22] MEDS: metroNIDAZOLE/NS 500 MG/100 ML PIGGYBACK 100 MG IV (11:30)
--- NOTE | 2021-03-22 14:04 | P.PNIM_ITS ---
Subjective Subjective Date of Service: 03/22/21 Interval History: Complain of persistent watery diarrhea four since this a.m., spoke with nurse he mentioned patient had only 2 bowel movement, soft and not watery, also complaining of persistent abdominal pain, no fevers no chills mild nausea, no vomiting Review of Systems General no headache, no dizziness, no fever chills. CVS no chest pain, no palpitation. Respiratory no cough, no sob. Gastrointestinal nausea,and abdominal pain Physical Exam Vital Signs: Vital Signs: Last Vital Signs Temp 97.6 F 03/22/21 11:33 Pulse 70 03/22/21 11:33 Resp 19 03/22/21 11:33 BP 124/62 03/22/21 11:33 Pulse Ox 94 03/22/21 11:33 Body Mass Index 33.7 General no acute d istress.? Neck no JVD. CVS? regular rate rhythm, Respi ratory lungs clear to auscultation, no respiratory dis tress Gastrointest inal abdomen soft, bowel sounds sherry ble, lower abdomin al tenderness with deep palpation, n o guarding , no ri gidity. Extremitie s no? edema. Neuro nonfocal, speech clear. Skin no yessica h Objective Data Active Medications Acetaminophen (Acetaminophen 325 Mg Tablet) 650 mg PO Q6H PRN PRN Reason: pain Last Admin: 03/21/21 01:34 Dose: 650 mg Documented by: IGLESIA Amitriptyline HCl (Amitriptyline Hcl 10 Mg Tablet) 10 mg PO BEDTIME [facility] Last Admin: 03/21/21 19:26 Dose: 10 mg Documented by: IGLESIA Atorvastatin Calcium (Atorvastatin Calcium 40 Mg Tablet) 40 mg PO DAILY [facility] Last Admin: 03/22/21 08:08 Dose: 40 mg Documented by: JOVANNI Buspirone HCl (Buspirone Hcl 5 Mg Tablet) 7.5 mg PO BID [facility] Last Admin: 03/22/21 08:08 Dose: 7.5 mg Documented by: JOVANNI Clonazepam (Clonazepam 0.5 Mg Tablet) 0.25 mg PO TID [facility] Last Admin: 03/22/21 08:07 Dose: 0.25 mg Documented by: JOVANNI Escitalopram Oxalate (Escitalopram Oxalate 20 Mg Tablet) 20 mg PO DAILY [facility] Last Admin: 03/22/21 08:08 Dose: 20 mg Documented by: JOVANNI Folic Acid (Folic Acid 1 Mg Tablet) 1 mg PO DAILY [facility] Last Admin: 03/22/21 08:08 Dose: 1 mg Documented by: JOVANNI Hydroxyzine HCl (Hydroxyzine Hcl 25 Mg Tablet) 25 mg PO BEDTIME [facility] Last Admin: 03/21/21 19:26 Dose: 25 mg Documented by: IGLESIA Lactated Ringer's (Lr) 1,000 mls @ 100 mls/hr IVCONT .Q10H [facility] Last Admin: 03/22/21 05:14 Dose: 100 mls/hr Documented by: IGLESIA Metronidazole (Flagyl) 500 mg in 100 mls @ 100 mls/hr IV Q8H [facility] Last Infusion: 03/22/21 12:32 Dose: 0 mls/hr Documented by: JOVANNI Loperamide HCl (Loperamide Hcl 2 Mg Capsule) 2 mg PO Q4H PRN PRN Reason: diarrhea Last Admin: 03/22/21 08:08 Dose: 2 mg Documented by: JOVANNI Morphine Sulfate (Morphine Sulfate 2 Mg/Ml Cartridge) 2 mg IVPUSH Q4H PRN; Protocol PRN Reason: Pain, Severe (Pain Scale 7-10) Last Admin: 03/22/21 08:07 Dose: 2 mg Documented by: JOVANNI Nicotine (Nicotine 21 Mg Patch.Td24) 21 mg TRANSDERMA DAILY [facility] Last Admin: 03/22/21 08:09 Dose: 21 mg Documented by: JOVANNI Sodium Chloride (0.9 % Sodium Chloride Flush 3 Ml Syringe) 3 ml IVFLUSH QSHIFT [facility] Last Admin: 03/22/21 08:09 Dose: 3 ml Documented by: JOVANNI Warfarin Sodium (Warfarin Sodium 5 Mg Tablet) 5 mg PO DAILY@1800 [facility] Last Admin: 03/21/21 17:54 Dose: 5 mg Documented by: JOVANNI Zinc Oxide (Zinc Oxide 20% Ointment 28.35 Gm Tube) 1 appl TOPICAL TID PRN; Protocol PRN Reason: bm Labs CBC & Chem 7: 03/19/21 06:12 03/22/21 Unknown Labs: Laboratory Results - last 24 hr 03/22/21 03/22/21 05:54 Unknown PT 28.6 H INR 2.5 H Anion Gap 12 Estim Creat Clear Calc 75.9 Estimated GFR > 60 Random Glucose 93 Calcium 8.5 Assessment and Plan (1) History of pulmonary embolism: Status: Acute (2) History of DVT (deep vein thrombosis): Status: Acute (3) Intractable diarrhea: Status: Acute (4) Current use of anticoagulant therapy: Status: Acute (5) Chronic venous insufficiency: Status: Acute (6) PAD (peripheral artery disease): Status: Acute (7) Hyperlipidemia: Status: Acute (8) Bipolar 1 disorder: Status: Acute Assessment and Plan: 61F presented with about 3 weeks of diarrhea prolonged acute watery diarrhea Persistent diarrhea with abdominal cramping,but less watery more formed and less frequent stools, BMP shows no hypokalemia stable renal function, hold off on repeat imaging studies Will DC Pepcid, add stool chart, add empiric Flagyl continue IV fluids, continue low residue, lactose-free diet, cont. imodium, no fevers, normal WBC,stool culture and cdif negative, continue barrier cream Recommend out of bed to chair and ambulation Seen by physical therapy they recommend STR at SNF due to generalized weakness history of unprovoked DVT/PE On coumadin,? INR 2.5 hld statin mood disorder Continue lexapro, atarax, klonipin.? No acute issues Quality Stroke Does the patient have a stroke diagnosis?: No VTE Prior VTE?: Yes VTE Risk Level:: Medical - moderate - high VTE Device Contraindication: Treatment Not Indicated VTE Drug Contraindication: N/A - Med Ordered
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
[2021-03-22] MEDS: Acetaminophen 325 MG TABLET 650 MG PO (14:42)
[2021-03-22] MEDS: Warfarin Sodium 5 MG TABLET PO (17:30)
--- NOTE | 2021-03-22 19:32 | PC.NURSE ---
Per patient, Rufina Brambila no longer permitted to receive information about patient or allowed to visit patient. Nursing linen supervisor Prashanth Forrester, case management, registered nursing professor Link Willis, psychiatric secretary, and oncoming nurse made aware.
[2021-03-22] MEDS: Amitriptyline HCl 10 MG TABLET PO (20:24)
[2021-03-22] MEDS: hydrOXYzine HCL 25 MG TABLET PO (20:25)
[2021-03-23 03:49] VITALS: BP 113/62; PULSE 60; RESP 16; TEMP 36.6; O2SAT 94
[2021-03-23] MEDS: traMADoL HCL 50 MG TABLET PO (05:29)
[2021-03-23 07:05] LABS: INTERNATIONAL NORM RATIO 3.2 (0.9-1.1); Prothrombin Time 36.8 SEC (9.9-13.0)
[2021-03-23] MEDS: Lactated Ringers 1,000 ML 100 ML IVCONT (07:08)
[2021-03-23 07:21] VITALS: BP 121/77; PULSE 67; RESP 16; TEMP 35.9
[2021-03-23] MEDS: Nicotine 21 MG PATCH.TD24 TRANSDERMA (09:43)
[2021-03-23] MEDS: busPIRone HCl 5 MG TABLET 7.5 MG PO (09:44)
[2021-03-23] MEDS: Escitalopram Oxalate 20 MG TABLET PO (09:44)
[2021-03-23] MEDS: Atorvastatin Calcium 40 MG TABLET PO (09:44)
[2021-03-23] MEDS: Folic Acid 1 MG TABLET PO (09:44)
[2021-03-23] MEDS: clonazePAM 0.5 MG TABLET 0.25 MG PO (09:45)
--- NOTE | 2021-03-23 10:57 | W.MHC.F2F ---
Service Date Service Date: 03/23/21 Encounter Date of encounter: 03/23/21 Reasons for Services Signs and symptoms assessed: Diarrhea generalized weakness Reason for group home: monitoring of PT/INR and medication management Reason for physical therapy: home safety and mobility Homebound: Leaving the home is medically contraindicated at this time without the asist of a device and/or another person due th the listed conditions above and below. Certification: Based on the above findings, I certify that this patient is confined to the home and needs intermittent group home care, physical therapy and/or speech therapy, or continues to need occupational therapy. The patient is under my care, and I have initiated the establishment of the plan of care. The patient will be followed by a physician who will periodically review the plan of care.
--- NOTE | 2021-03-23 10:58 | P.DS_ITS ---
DS: Providers Provider Date of Service: 03/23/21 Date of admission: 03/18/21 15:07 Primary care physician: Shiv Lyons MD DS: Diagnosis Discharge Diagnosis (1) History of pulmonary embolism: Status: Acute (2) History of DVT (deep vein thrombosis): Status: Acute (3) Intractable diarrhea: Status: Acute (4) Current use of anticoagulant therapy: Status: Acute (5) Chronic venous insufficiency: Status: Acute (6) PAD (peripheral artery disease): Status: Acute (7) Hyperlipidemia: Status: Acute (8) Bipolar 1 disorder: Status: Acute DS: Summary Hospital Course Hospital Course: Chief Complaint: diarrhea 61F presented with diarrhea. patient states that about 3 weeks ptp she began having suprapubic crampy abdominal pain associated with yellow mucousy high v olume diarrhea, at first had some blood, but has since been without blood. she reports about 20 bowel movements per day. denies fever, chills, sick contacts, travel, change in meds or diet. has been constant with no relieving factors. in ED was still having several large volume bowel movements, cdif negative, labs unremarkable. CT abd unremarkable. History of presenting illness Patient admitted with acute watery diarrhea, patient treated symptomatically with IV fluids, anti diarrhea and analgesic, she was noted to hypokalemia that has been repleted her kidney function remains stable she has had no fevers WBC remains normal stool culture and C diff are negative, since her diarrhea has significantly improved and she is tolerating regular diet, therefore she is being discharged home and recommended to hold stool softeners and Pepcid, INR is 3.2 today therefore she has been recommended to hold Coumadin today and recheck INR tomorrow morning and to resume Coumadin if INR below 2.5, patient is being discharged with VNA services for close PT INR monitoring In regard to hyperlipidemia and mood disorder she has been continued on all baseline medication. Time Spent with Patient Time attestation: Total time spent providing and/or coordinating discharge services: Discharge coordination time: Greater than 30 minutes Quality: Stroke Does the patient have a stroke diagnosis?: No Physical Exam Vital Signs: Vital Signs: Last Vital Signs Temp 96.7 F L 03/23/21 07:21 Pulse 67 03/23/21 07:21 Resp 16 03/23/21 07:21 BP 121/77 03/23/21 07:21 Pulse Ox 94 03/23/21 03:49 Body Mass Index 33.7 General resting comfortably in no acute distress. Neck supple no JVD. CVS regular rate rhythm, Respiratory lungs clear to auscultation, no respiratory distress, no wheeze, no rhonchi. Gastrointestinal abdomen soft, nontender, bowel sounds audible, no guarding , no rigidity. Extremities no edema. Neuro nonfocal , speech clear. Skin no rash DS: Data Data Completed and Pending Labs on day of discharge: Laboratory Results - last 24 hr 03/23/21 06:24 PT 36.8 H D INR 3.2 H Preliminary micro results at discharge 03/18/21 10:56 Blood Culture - Preliminary Blood - Venous No growth after 48 hours. 03/18/21 10:28 Blood Culture - Preliminary Blood - Venous No growth after 48 hours. Discharge Plan Discharge Patient Disposition: Home Health Service Discharge Diagnosis: Intractable Watery diarrhea Referrals: Shiv Monroe MD [Primary Care Provider] - 1 Week Discharge Medications: New nicotine 21 mg/24 hr Patch 24 Hour 21 mg transdermal DAILY Qty: 30 RF: 0 Continued acetaminophen 500 mg capsule 1,000 mg PO Q6H PRN (Reason: pain) 7 Days Qty: 60 RF: 0 cetirizine 10 mg tablet 1 tab PO DAILY RF: 0 folic acid 400 mcg tablet 1 tab PO DAILY RF: 0 amitriptyline 10 mg tablet 1 tab PO BEDTIME RF: 0 hydroxyzine HCl 25 mg Tablet 25 mg PO BEDTIME RF: 0 escitalopram oxalate 20 mg Tablet 20 mg PO DAILY RF: 0 ramelteon 8 mg Tablet 8 mg PO BEDTIME RF: 0 Rexulti 1 mg Tablet RF: 0 atorvastatin 40 mg tablet 40 mg PO DAILY RF: 0 buspirone 7.5 mg tablet 7.5 mg PO BID RF: 0 clonazepam 0.5 mg tablet 0.25 mg PO TID RF: 0 Held famotidine 20 mg tablet 20 mg PO BID RF: 0 Hold Instructions: Resume on 03/30/21. warfarin 5 mg tablet 5 mg PO DAILY RF: 0 Hold Instructions: Resume on 03/25/21. Check PT INR 03/24/2021, resume Coumadin if INR below 2.5 Discontinued cefuroxime axetil 250 mg tablet 250 mg PO BID 7 Days Qty: 14 RF: 0 docusate sodium 100 mg capsule 1 cap PO DAILY RF: 0 Discharge Orders: Discharge Order (Routine); Ordered 03/23/21 Ordered By: Grace Brown Diet: other Activity on Discharge: As tolerated Stand Alone Forms: Patient Portal Discharge page Care Plan Goals: Diarrhea improved, continue to hold stool softeners and Pepcid, take low residue diet, ambulate as tolerated Health Concerns: On Coumadin INR 3.2 0n 03/23/21, check PT INR on 03/24 and resume Coumadin if INR below 2.5, hold Coumadin if INR remains above 3 and rechek PT INR on 03/25 Plan of Treatment: Follow-up with primary care physician in 1 week Assessment: As above
[2021-03-23 11:21] VITALS: BP 121/77; PULSE 67
--- NOTE | 2021-03-23 11:23 | MHC.CM.PN ---
THIS ADJUNCT TRAINER MET WITH PATIENT. CAREGIVER WAS IN ROOM WITH A VISITOR PASS. PATIENT STATES THAT SHE GIVES PERMISSION FOR CAREGIVER TO BE IN ROOM. PATIENT TELLS THIS ADJUNCT TRAINER THAT SHE DOES WANT TO GO HOME I FEEL READY TO GO HOME NOW WHEN ASKED IF PATIENT WANTS TO SPEAK WITH THIS ADJUNCT TRAINER ALONE, SHE DENIES. WALTER HERNÁNDEZ MADE AWARE OF PLAN FOR DC TODAY AND NEED FOR INR CHECK Saturday03/24/21. [employer] TO B MADE AWARE OF NEW PLAN.
--- NOTE | 2021-03-23 11:35 | MHC.CM.PN ---
MESSAGE LEFT FOR MELIDA @ [phone] THAT PATIENT IS DISCHARGED AND CAN BE TRANSPORTED .PER PREVIOUS CONVERSATION, TRANSPORTATION WOULD BE AT APPROX 1300. RN AWARE.
[2021-03-23 11:38] VITALS: BP 133/58; PULSE 80; RESP 16; TEMP 36.6; O2SAT 95
--- NOTE | 2021-03-23 12:21 | MHC.CM.PN ---
Addendum entered by Charito Harrington 03/23/21 12:24: PER CONVERSATION WITH [facility] [employer], REPORT WAS SENT TO [facility]. ACCORDING TO INTAKER SCREENER, CORRECTION OFFICER PENITENTIARY IS NUSRAT RIOS. DETAILED MESSAGE LEFT ABOUT PATIENT PLAN, WELL CALL-BACK NUMBER FOR THIS MANAGER PAID. Original Note: CALL TO [facility] @ [phone]. THIS MANAGER PAID ASKED FOR ROSE IN PROTECTIVE SERVICES. THERE IS NO ROSE. PHONE NUMBER GIVEN FOR HOTLINE OF PROTECTIVE SERVICES [phone]
--- NOTE | 2021-03-23 12:35 | MHC.CM.PN ---
EL[employer] PROT[employer]IVE SERVICES WORKER, NUSRAT, IS ON HER WAY TO MEET WITH PATIENT RN AND UNIT AWARE.
--- NOTE | 2021-03-23 14:01 | MHC.CM.PN ---
CASE MANAGEMENT WALKED TO ROOM WITH PROTECTIVE SERVICES WORKER, NUSRAT UPON THIS ADVERTISING AGENT'S RETURN TO ROOM, CONVERSATION WAS COMPLETE, AND NUSRAT HAD LEFT. ACCORDING TO PATIENT, NUSRAT WILL FOLLOW UP IN THE COMMUNITY. RN AWARE.
== END 2021-03-23 14:16 | disposition home health service (06) | DRG 425 ==
LOC: HO.ED 14:35 → HO.S3 03-21 07:38 → HO.EDOVER 03-21 17:54 → HO.S3 03-21 17:54
PROVIDERS: Admitting Provider Internal Medicine; Emergency Provider Student in an Organized Health Care Education/Training Program; PCP Internal Medicine; Visit Provider Hospitalist
DX: E87.6 Hypokalemia (principal); E78.5 Hyperlipidemia, unspecified; F31.9 Bipolar disorder, unspecified; Z86.711 Personal history of pulmonary embolism; R19.7 Diarrhea, unspecified; I73.9 Peripheral vascular disease, unspecified; I87.2 Venous insufficiency (chronic) (peripheral); F17.210 Nicotine dependence, cigarettes, uncomplicated; Z20.822 Contact with and (suspected) exposure to COVID-19; Z71.6 Tobacco abuse counseling; Z88.6 Allergy status to analgesic agent; Z79.01 Long term (current) use of anticoagulants; Z79.899 Other long term (current) drug therapy
CPT/HCPCS: 36415; 74177; 80048; 80053; 81003; 83605; 83735; 85025; 85027; 85610; 85730; 87040; 87045; 87046; 87329; 87493; 87635; 89055; 93005; 96361; 96374; 97110; 97116; 97162; 99218; 99285; J1956; J2270; J2405; Q9967

== ENCOUNTER → 2021-03-24 15:41 | Outpatient (BNVA) | payer MEDICAID, SELFPAY | PROVIDERS: PCP Internal Medicine; Visit Provider Internal Medicine | DX: I82.403 Acute embolism and thrombosis of unspecified deep veins of lower extremity, bilateral (principal); Z51.81 Encounter for therapeutic drug level monitoring; Z79.01 Long term (current) use of anticoagulants | CPT/HCPCS: Q3014 ==

== ENCOUNTER → 2021-03-27 12:06 | Outpatient (BNVA) | payer MEDICAID, SELFPAY | PROVIDERS: PCP Internal Medicine; Visit Provider Internal Medicine | DX: I82.403 Acute embolism and thrombosis of unspecified deep veins of lower extremity, bilateral (principal); Z51.81 Encounter for therapeutic drug level monitoring; Z79.01 Long term (current) use of anticoagulants | CPT/HCPCS: Q3014 ==

== ENCOUNTER → 2021-03-29 15:54 | Outpatient (BNVA) | payer MEDICAID, SELFPAY | PROVIDERS: PCP Internal Medicine; Visit Provider Internal Medicine | DX: I82.403 Acute embolism and thrombosis of unspecified deep veins of lower extremity, bilateral (principal); Z51.81 Encounter for therapeutic drug level monitoring; Z79.01 Long term (current) use of anticoagulants | CPT/HCPCS: Q3014 ==

== ENCOUNTER → 2021-04-03 16:27 | Outpatient (BNVA) | payer MEDICAID, SELFPAY | PROVIDERS: PCP Internal Medicine; Visit Provider Internal Medicine | DX: I82.403 Acute embolism and thrombosis of unspecified deep veins of lower extremity, bilateral (principal); Z51.81 Encounter for therapeutic drug level monitoring; Z79.01 Long term (current) use of anticoagulants | CPT/HCPCS: Q3014 ==

== ENCOUNTER → 2021-04-07 15:47 | Outpatient (BNVA) | payer MEDICAID, SELFPAY | PROVIDERS: PCP Internal Medicine; Visit Provider Internal Medicine | DX: I82.403 Acute embolism and thrombosis of unspecified deep veins of lower extremity, bilateral (principal); Z51.81 Encounter for therapeutic drug level monitoring; Z79.01 Long term (current) use of anticoagulants | CPT/HCPCS: Q3014 ==

== ENCOUNTER → 2021-04-11 15:48 | Outpatient (BNVA) | payer MEDICAID, SELFPAY | PROVIDERS: PCP Internal Medicine; Visit Provider Internal Medicine ==

== ENCOUNTER → 2021-04-18 16:12 | Outpatient (BNVA) | payer MEDICAID, SELFPAY | PROVIDERS: PCP Internal Medicine; Visit Provider Internal Medicine | DX: I82.403 Acute embolism and thrombosis of unspecified deep veins of lower extremity, bilateral (principal); Z51.81 Encounter for therapeutic drug level monitoring; Z79.01 Long term (current) use of anticoagulants | CPT/HCPCS: Q3014 ==

== ENCOUNTER → 2021-04-28 09:57 | Outpatient (BNVA) | payer MEDICAID, SELFPAY | PROVIDERS: PCP Internal Medicine; Visit Provider Internal Medicine | DX: I82.403 Acute embolism and thrombosis of unspecified deep veins of lower extremity, bilateral (principal); Z51.81 Encounter for therapeutic drug level monitoring; Z79.01 Long term (current) use of anticoagulants | CPT/HCPCS: 85610 ==

== ENCOUNTER → 2021-05-19 09:40 | Outpatient (BNVA) | payer MEDICAID, SELFPAY | PROVIDERS: PCP Internal Medicine; Visit Provider Internal Medicine | DX: I82.403 Acute embolism and thrombosis of unspecified deep veins of lower extremity, bilateral (principal); Z51.81 Encounter for therapeutic drug level monitoring; Z79.01 Long term (current) use of anticoagulants | CPT/HCPCS: 85610; 99211 ==

== ENCOUNTER → 2021-05-26 11:12 | Outpatient (BNVA) | payer MEDICAID, SELFPAY | PROVIDERS: PCP Internal Medicine; Visit Provider Internal Medicine | DX: I82.403 Acute embolism and thrombosis of unspecified deep veins of lower extremity, bilateral (principal); Z51.81 Encounter for therapeutic drug level monitoring; Z79.01 Long term (current) use of anticoagulants | CPT/HCPCS: 85610; 99211 ==

== ENCOUNTER 2021-06-12 13:44 | Outpatient (REF) | payer MEDICAID, SELFPAY | END 2021-06-12 13:45 | disposition home or self-care (01) | LOC: HO.LAB 13:44 | PROVIDERS: PCP Psychiatry & Neurology Psychiatry; Visit Provider Internal Medicine | DX: Z20.822 Contact with and (suspected) exposure to COVID-19 (principal) | CPT/HCPCS: C9803; U0003; U0005 ==

== ENCOUNTER → 2021-06-23 10:39 | Outpatient (BNVA) | payer MEDICAID, SELFPAY | PROVIDERS: PCP Psychiatry & Neurology Psychiatry; Visit Provider Internal Medicine | DX: I82.403 Acute embolism and thrombosis of unspecified deep veins of lower extremity, bilateral (principal); Z51.81 Encounter for therapeutic drug level monitoring; Z79.01 Long term (current) use of anticoagulants | CPT/HCPCS: 85610; 99211 ==

== ENCOUNTER → 2021-06-30 09:59 | Outpatient (BNVA) | payer MEDICAID, SELFPAY | PROVIDERS: PCP Psychiatry & Neurology Psychiatry; Visit Provider Internal Medicine | DX: I82.403 Acute embolism and thrombosis of unspecified deep veins of lower extremity, bilateral (principal); Z51.81 Encounter for therapeutic drug level monitoring; Z79.01 Long term (current) use of anticoagulants | CPT/HCPCS: 85610; 99211 ==

== ENCOUNTER → 2021-07-05 14:36 | Outpatient (BNVA) | payer MEDICAID, SELFPAY | PROVIDERS: PCP Psychiatry & Neurology Psychiatry; Visit Provider Internal Medicine | DX: I82.403 Acute embolism and thrombosis of unspecified deep veins of lower extremity, bilateral (principal); Z51.81 Encounter for therapeutic drug level monitoring; Z79.01 Long term (current) use of anticoagulants | CPT/HCPCS: 85610; 99211 ==

== ENCOUNTER → 2021-07-28 08:10 | Outpatient (BNVA) | payer MEDICAID, SELFPAY | PROVIDERS: PCP Internal Medicine; Visit Provider Internal Medicine | DX: I82.403 Acute embolism and thrombosis of unspecified deep veins of lower extremity, bilateral (principal); Z51.81 Encounter for therapeutic drug level monitoring; Z79.01 Long term (current) use of anticoagulants | CPT/HCPCS: 85610; 99211 ==

== ENCOUNTER → 2021-08-24 13:15 | Outpatient (BNVA) | payer MEDICAID, SELFPAY | PROVIDERS: PCP Internal Medicine; Visit Provider Internal Medicine | DX: I82.403 Acute embolism and thrombosis of unspecified deep veins of lower extremity, bilateral (principal); Z51.81 Encounter for therapeutic drug level monitoring; Z79.01 Long term (current) use of anticoagulants | CPT/HCPCS: 85610; 99211 ==

== ENCOUNTER → 2021-09-14 14:56 | Outpatient (BNVA) | payer MEDICAID, SELFPAY | PROVIDERS: PCP Internal Medicine; Visit Provider Internal Medicine | DX: I82.403 Acute embolism and thrombosis of unspecified deep veins of lower extremity, bilateral (principal); Z51.81 Encounter for therapeutic drug level monitoring; Z79.01 Long term (current) use of anticoagulants | CPT/HCPCS: 85610; 99211 ==

== ENCOUNTER → 2021-09-21 11:06 | Outpatient (BNVA) | payer MEDICAID, SELFPAY | PROVIDERS: PCP Internal Medicine; Visit Provider Internal Medicine | DX: I82.403 Acute embolism and thrombosis of unspecified deep veins of lower extremity, bilateral (principal); Z51.81 Encounter for therapeutic drug level monitoring; Z79.01 Long term (current) use of anticoagulants | CPT/HCPCS: 85610; 99211 ==

== ENCOUNTER 2021-09-25 09:07 | Outpatient (REF) | payer MEDICAID, SELFPAY ==
--- NOTE | ~2021-09-25 | CT_ITS ---
EXAMINATION: CT ABDOMEN AND PELVIS WITH CONTRAST CLINICAL INFORMATION: Abdominal pain. COMPARISON: CT abdomen pelvis 03/18/2021. TECHNIQUE: Multidetector volumetric images were obtained from the superior aspect of the liver through the pubic symphysis following administration 85 mL of Omnipaque 350 intravenous contrast. Sagittal and coronal reformatted images were obtained on the technologist's workstation. Oral contrast: No. This CT examination was performed using dose optimization techniques as appropriate, variously including the following: *Automated exposure control *Adjustment of mA and/or kV according to patient size (this includes techniques or standardized protocols for targeted exams where dose is matched to indication/reason for exam; i.e. extremities or head) *Use of iterative reconstruction technique DLP: 299 mGy-cm FINDINGS: LUNG BASES: The lung bases are clear. The heart size is normal. LIVER, GALLBLADDER, AND BILIARY TREE: The liver is normal in size, shape, and attenuation. No focal hepatic lesion or biliary ductal dilatation is present. The gallbladder is unremarkable with no evidence of radiopaque gallstones, gallbladder wall thickening, or obvious pericholecystic inflammatory changes. PANCREAS: Unremarkable. SPLEEN: Unremarkable. ADRENAL GLANDS: There is a 2 cm lesion left adrenal gland measuring 20 Hounsfield units. The right adrenal gland appears unremarkable. KIDNEYS AND URETERS: The kidneys are normal in size, shape, and attenuation. No hydronephrosis, hydroureter, or calculi seen. There is a right perinephric hypodense fluid collection measuring 3.3 cm in length and 0.7 cm in thickness likely previous trauma or intervention. BLADDER: The bladder is contracted and appears unremarkable. GASTROINTESTINAL TRACT: There is scattered oral contrast and diverticula seen throughout the colon without any mural thickening or obstruction. There is nonspecific mural thickening involving some of the small bowel loops likely low-grade enteritis. No fat stranding seen in the surrounding mesentery. Appendix is normal caliber. ABDOMINAL WALL: There is abdominal wall mesh from hernia repair about the umbilicus. LYMPH NODES: Normal. VASCULAR: There is a left common iliac stent in place. Mild atherosclerosis of abdominal aorta without dilatation noted. PELVIC VISCERA: The uterus is not visualized likely surgically removed or atrophic. There are bilateral presacral electrodes visualized. OSSEOUS STRUCTURES: There are superimposed Schmorl's node at L2 vertebra. No aggressive lytic or sclerotic process seen. There is a presacral electrode. CT/CT abdomen pelvis w con IMPRESSION: Mild mural thickening involving the mid small bowel loops, question enteritis. Similar findings were likely present however not optimally visualized due to lack of oral contrast. Recommend correlation with clinical exam. Colonic diverticulosis without diverticulitis. No mesenteric fat stranding or abnormal mesenteric lymph nodes seen. Normal appendix. Small right subcapsular fluid collection question seroma or a small hematoma from previous intervention or trauma. This has improved from 03/18/2021 CT exam. Fleischner guidelines were followed.
[2021-09-25] MEDS: Barium Sulfate Oral (Berry) 450 ML ORAL.SUSP 900 ML PO (11:52)
[2021-09-25] MEDS: iohexoL 350 MG/ML 100 ML INFUS..BTL IV (11:53)
== END 2021-09-25 09:08 | disposition home or self-care (01) ==
LOC: HO.CT 09:07
PROVIDERS: Visit Provider Emergency Medicine
DX: I82.403 Acute embolism and thrombosis of unspecified deep veins of lower extremity, bilateral (principal); R10.84 Generalized abdominal pain; Z51.81 Encounter for therapeutic drug level monitoring; Z79.01 Long term (current) use of anticoagulants
CPT/HCPCS: 74177; 85610; 99211; Q9967

== ENCOUNTER → 2021-11-02 07:27 | Outpatient (BNVA) | payer MEDICAID, SELFPAY | PROVIDERS: PCP Internal Medicine; Visit Provider Physician Assistant | DX: K57.30 Diverticulosis of large intestine without perforation or abscess without bleeding (principal); K52.9 Noninfective gastroenteritis and colitis, unspecified; R12 Heartburn; R10.9 Unspecified abdominal pain; I82.403 Acute embolism and thrombosis of unspecified deep veins of lower extremity, bilateral; Z51.81 Encounter for therapeutic drug level monitoring; Z79.01 Long term (current) use of anticoagulants | CPT/HCPCS: 85610; 99202; 99212 ==

== ENCOUNTER → 2021-11-06 10:03 | Outpatient (BNVA) | payer MEDICAID, SELFPAY | PROVIDERS: PCP Internal Medicine; Visit Provider Internal Medicine | DX: I82.403 Acute embolism and thrombosis of unspecified deep veins of lower extremity, bilateral (principal); Z79.01 Long term (current) use of anticoagulants; Z51.81 Encounter for therapeutic drug level monitoring | CPT/HCPCS: 85610; 99211 ==

== ENCOUNTER → 2021-11-09 10:00 | Outpatient (BNVA) | payer MEDICAID, SELFPAY | PROVIDERS: PCP Internal Medicine; Visit Provider Internal Medicine | DX: I82.403 Acute embolism and thrombosis of unspecified deep veins of lower extremity, bilateral (principal); Z79.01 Long term (current) use of anticoagulants; Z51.81 Encounter for therapeutic drug level monitoring | CPT/HCPCS: 85610; 99211 ==

== ENCOUNTER → 2021-11-16 11:41 | Outpatient (BNVA) | payer MEDICAID, SELFPAY | PROVIDERS: PCP Internal Medicine; Visit Provider Internal Medicine | DX: Z13.89 Encounter for screening for other disorder (principal) ==

== ENCOUNTER → 2021-11-22 13:17 | Outpatient (BNVA) | payer MEDICAID, SELFPAY | PROVIDERS: PCP Internal Medicine; Visit Provider Internal Medicine | DX: Z13.89 Encounter for screening for other disorder (principal) ==

== ENCOUNTER → 2021-11-29 14:55 | Outpatient (BNVA) | payer MEDICAID, SELFPAY | PROVIDERS: PCP Internal Medicine; Visit Provider Internal Medicine | DX: Z79.01 Long term (current) use of anticoagulants (principal) ==

== ENCOUNTER → 2021-12-06 15:54 | Outpatient (BNVA) | payer MEDICAID, SELFPAY | PROVIDERS: PCP Internal Medicine; Visit Provider Internal Medicine | DX: Z79.01 Long term (current) use of anticoagulants (principal) ==

== ENCOUNTER → 2021-12-13 15:43 | Outpatient (BNVA) | payer MEDICAID, SELFPAY | PROVIDERS: PCP Internal Medicine; Visit Provider Internal Medicine | DX: I82.403 Acute embolism and thrombosis of unspecified deep veins of lower extremity, bilateral (principal); Z79.01 Long term (current) use of anticoagulants; Z51.81 Encounter for therapeutic drug level monitoring | CPT/HCPCS: Q3014 ==

== ENCOUNTER → 2022-01-17 15:55 | Outpatient (BNVA) | payer MEDICAID, SELFPAY | PROVIDERS: PCP Internal Medicine; Visit Provider Internal Medicine | DX: I82.403 Acute embolism and thrombosis of unspecified deep veins of lower extremity, bilateral (principal); Z79.01 Long term (current) use of anticoagulants; Z51.81 Encounter for therapeutic drug level monitoring | CPT/HCPCS: Q3014 ==

== ENCOUNTER → 2022-02-07 15:36 | Outpatient (BNVA) | payer MEDICAID, SELFPAY | PROVIDERS: PCP Internal Medicine; Visit Provider Internal Medicine | DX: I82.403 Acute embolism and thrombosis of unspecified deep veins of lower extremity, bilateral (principal); Z79.01 Long term (current) use of anticoagulants; Z51.81 Encounter for therapeutic drug level monitoring | CPT/HCPCS: Q3014 ==

== ENCOUNTER → 2022-07-04 11:48 | Outpatient (BNVA) | payer MEDICAID, SELFPAY | PROVIDERS: PCP Internal Medicine; Visit Provider Internal Medicine | DX: Z79.01 Long term (current) use of anticoagulants (principal) ==

== ENCOUNTER → 2022-07-11 13:47 | Outpatient (BNVA) | payer MEDICAID, SELFPAY | PROVIDERS: PCP Internal Medicine; Visit Provider Internal Medicine | DX: Z79.01 Long term (current) use of anticoagulants (principal) ==

== ENCOUNTER → 2022-07-18 13:59 | Outpatient (BNVA) | payer MEDICAID, SELFPAY | PROVIDERS: PCP Internal Medicine; Visit Provider Internal Medicine | DX: Z79.01 Long term (current) use of anticoagulants (principal) ==

== ENCOUNTER → 2022-07-25 11:23 | Outpatient (BNVA) | payer MEDICAID, SELFPAY | PROVIDERS: PCP Internal Medicine; Visit Provider Internal Medicine | DX: Z79.01 Long term (current) use of anticoagulants (principal) ==

== ENCOUNTER → 2022-08-01 15:24 | Outpatient (BNVA) | payer MEDICAID, SELFPAY | PROVIDERS: PCP Internal Medicine; Visit Provider Internal Medicine | DX: Z79.01 Long term (current) use of anticoagulants (principal) ==

== ENCOUNTER → 2022-08-08 14:53 | Outpatient (BNVA) | payer MEDICAID, SELFPAY | PROVIDERS: PCP Internal Medicine; Visit Provider Internal Medicine | DX: Z79.01 Long term (current) use of anticoagulants (principal) ==

== ENCOUNTER → 2022-08-22 13:30 | Outpatient (BNVA) | payer MEDICAID, SELFPAY | PROVIDERS: PCP Internal Medicine; Visit Provider Internal Medicine | DX: Z79.01 Long term (current) use of anticoagulants (principal) ==

== ENCOUNTER → 2022-09-05 10:07 | Outpatient (BNVA) | payer MEDICAID, SELFPAY | PROVIDERS: PCP Internal Medicine; Visit Provider Internal Medicine | DX: Z79.01 Long term (current) use of anticoagulants (principal) ==

== ENCOUNTER → 2022-09-19 13:49 | Outpatient (BNVA) | payer MEDICAID, SELFPAY | PROVIDERS: PCP Internal Medicine; Visit Provider Internal Medicine | DX: Z79.01 Long term (current) use of anticoagulants (principal) ==

== ENCOUNTER → 2022-09-27 11:28 | Outpatient (BNVA) | payer MEDICAID, SELFPAY | PROVIDERS: PCP Internal Medicine; Visit Provider Internal Medicine | DX: Z79.01 Long term (current) use of anticoagulants (principal) ==

== ENCOUNTER → 2022-10-12 14:12 | Outpatient (BNVA) | payer MEDICAID, SELFPAY | PROVIDERS: PCP Internal Medicine; Visit Provider Internal Medicine | DX: I82.403 Acute embolism and thrombosis of unspecified deep veins of lower extremity, bilateral (principal); Z79.01 Long term (current) use of anticoagulants; Z51.81 Encounter for therapeutic drug level monitoring | CPT/HCPCS: 99211 ==

== ENCOUNTER → 2022-10-31 14:08 | Outpatient (BNVA) | payer MEDICAID, SELFPAY | PROVIDERS: PCP Internal Medicine; Visit Provider Internal Medicine ==

== ENCOUNTER → 2022-11-02 15:54 | Outpatient (BNVA) | payer MEDICAID, SELFPAY | PROVIDERS: PCP Internal Medicine; Visit Provider Internal Medicine ==

== ENCOUNTER → 2022-11-07 13:59 | Outpatient (BNVA) | payer MEDICAID, SELFPAY | PROVIDERS: PCP Internal Medicine; Visit Provider Internal Medicine ==

== ENCOUNTER → 2022-11-14 13:27 | Outpatient (BNVA) | payer MEDICAID, SELFPAY | PROVIDERS: PCP Internal Medicine; Visit Provider Internal Medicine ==

== ENCOUNTER → 2022-11-21 15:13 | Outpatient (BNVA) | payer MEDICAID, SELFPAY | PROVIDERS: PCP Internal Medicine; Visit Provider Internal Medicine ==

== ENCOUNTER → 2022-11-28 14:57 | Outpatient (BNVA) | payer MEDICAID, SELFPAY | PROVIDERS: PCP Internal Medicine; Visit Provider Internal Medicine ==

== ENCOUNTER → 2022-12-12 14:27 | Outpatient (BNVA) | payer MEDICAID, SELFPAY | PROVIDERS: PCP Internal Medicine; Visit Provider Internal Medicine ==

== ENCOUNTER → 2022-12-19 15:00 | Outpatient (BNVA) | payer MEDICAID, SELFPAY | PROVIDERS: PCP Internal Medicine; Visit Provider Internal Medicine ==

== ENCOUNTER → 2022-12-26 14:47 | Outpatient (BNVA) | payer MEDICAID, SELFPAY | PROVIDERS: PCP Internal Medicine; Visit Provider Internal Medicine ==

== ENCOUNTER → 2023-01-02 15:34 | Outpatient (BNVA) | payer MEDICAID, SELFPAY | PROVIDERS: PCP Internal Medicine; Visit Provider Internal Medicine ==

== ENCOUNTER → 2023-01-09 15:17 | Outpatient (BNVA) | payer MEDICAID, SELFPAY | PROVIDERS: PCP Internal Medicine; Visit Provider Internal Medicine ==

== ENCOUNTER → 2023-01-16 12:32 | Outpatient (BNVA) | payer MEDICAID, SELFPAY | PROVIDERS: PCP Internal Medicine; Visit Provider Internal Medicine ==

== ENCOUNTER → 2023-01-23 12:07 | Outpatient (BNVA) | payer MEDICAID, SELFPAY | PROVIDERS: PCP Internal Medicine; Visit Provider Internal Medicine ==

== ENCOUNTER → 2023-01-30 13:56 | Outpatient (BNVA) | payer MEDICAID, SELFPAY | PROVIDERS: PCP Internal Medicine; Visit Provider Internal Medicine ==

== ENCOUNTER → 2023-02-13 16:18 | Outpatient (BNVA) | payer MEDICAID, SELFPAY | PROVIDERS: PCP Internal Medicine; Visit Provider Internal Medicine ==

== ENCOUNTER → 2023-02-27 14:38 | Outpatient (BNVA) | payer MEDICAID, SELFPAY | PROVIDERS: PCP Internal Medicine; Visit Provider Internal Medicine ==

== ENCOUNTER → 2023-03-14 13:58 | Outpatient (BNVA) | payer MEDICAID, SELFPAY | PROVIDERS: PCP Internal Medicine; Visit Provider Internal Medicine ==

== ENCOUNTER → 2023-03-19 16:25 | Outpatient (BNVA) | payer MEDICAID, SELFPAY | PROVIDERS: PCP Internal Medicine; Visit Provider Internal Medicine ==

== ENCOUNTER → 2023-03-27 11:37 | Outpatient (BNVA) | payer MEDICAID, SELFPAY | PROVIDERS: PCP Internal Medicine; Visit Provider Internal Medicine ==

== ENCOUNTER → 2023-04-01 15:17 | Outpatient (BNVA) | payer MEDICAID, SELFPAY | PROVIDERS: PCP Internal Medicine; Visit Provider Internal Medicine ==

== ENCOUNTER → 2023-04-15 14:15 | Outpatient (BNVA) | payer MEDICAID, SELFPAY | PROVIDERS: PCP Internal Medicine; Visit Provider Internal Medicine ==

== ENCOUNTER → 2023-04-24 13:40 | Outpatient (BNVA) | payer MEDICAID, SELFPAY | PROVIDERS: PCP Internal Medicine; Visit Provider Internal Medicine ==

== ENCOUNTER → 2023-05-01 14:11 | Outpatient (BNVA) | payer MEDICAID, SELFPAY | PROVIDERS: PCP Internal Medicine; Visit Provider Internal Medicine ==

== ENCOUNTER → 2023-05-08 13:37 | Outpatient (BNVA) | payer MEDICAID, SELFPAY | PROVIDERS: PCP Internal Medicine; Visit Provider Internal Medicine ==

== ENCOUNTER → 2023-05-22 13:27 | Outpatient (BNVA) | payer MEDICAID, SELFPAY | PROVIDERS: PCP Internal Medicine; Visit Provider Internal Medicine ==

== ENCOUNTER → 2023-06-05 11:57 | Outpatient (BNVA) | payer MEDICAID, SELFPAY | PROVIDERS: PCP Internal Medicine; Visit Provider Internal Medicine ==

== ENCOUNTER → 2023-06-19 10:55 | Outpatient (BNVA) | payer MEDICAID, SELFPAY | PROVIDERS: PCP Internal Medicine; Visit Provider Internal Medicine ==

== ENCOUNTER → 2023-07-04 13:56 | Outpatient (BNVA) | payer MEDICAID, SELFPAY | PROVIDERS: PCP Internal Medicine; Visit Provider Internal Medicine ==

== ENCOUNTER → 2023-08-01 14:22 | Outpatient (BNVA) | payer MEDICAID, SELFPAY | PROVIDERS: PCP Internal Medicine; Visit Provider Internal Medicine ==

== ENCOUNTER → 2023-08-08 14:52 | Outpatient (BNVA) | payer MEDICAID, SELFPAY | PROVIDERS: PCP Internal Medicine; Visit Provider Internal Medicine ==

== ENCOUNTER → 2023-08-15 12:49 | Outpatient (BNVA) | payer MEDICAID, SELFPAY | PROVIDERS: PCP Internal Medicine; Visit Provider Internal Medicine ==

== ENCOUNTER → 2023-08-22 14:46 | Outpatient (BNVA) | payer MEDICAID, SELFPAY | PROVIDERS: PCP Internal Medicine; Visit Provider Internal Medicine ==

== ENCOUNTER → 2023-09-04 14:49 | Outpatient (BNVA) | payer MEDICAID, SELFPAY | PROVIDERS: PCP Internal Medicine; Visit Provider Internal Medicine ==

== ENCOUNTER → 2023-09-12 10:47 | Outpatient (BNVA) | payer MEDICAID, SELFPAY | PROVIDERS: PCP Internal Medicine; Visit Provider Internal Medicine ==

== ENCOUNTER → 2023-09-26 15:02 | Outpatient (BNVA) | payer MEDICAID, SELFPAY | PROVIDERS: PCP Internal Medicine; Visit Provider Internal Medicine ==

== ENCOUNTER → 2023-10-10 15:00 | Outpatient (BNVA) | payer MEDICAID, SELFPAY | PROVIDERS: PCP Internal Medicine; Visit Provider Internal Medicine ==

== ENCOUNTER 2023-10-24 12:04 | Outpatient (AMB) | payer MEDICAID, SELFPAY ==
--- NOTE | 2023-10-24 12:11 | MHC.OFFVISCO ---
Intake Intake Visit Reasons: Anticoagulation Allergies aspirin [ASPIRIN] Allergy (Intermediate, Verified 10/24/23 12:04) CAN'T TAKE- ON WARFARIN Medication List - Last Reconciled 10/24/23 by Brenda Saldana RN acetaminophen 1,000 mg (2 x 500 mg) PO Q6H PRN 1 week atorvastatin 40 mg PO DAILY bisacodyl (Dulcolax (bisacodyl)) 10 mg (2 x 5 mg) PO ONCE 1 day brexpiprazole (Rexulti) mg brexpiprazole (Rexulti) 2 mg PO DAILY cetirizine 1 tab PO DAILY clonazepam 0.5 mg PO TID PRN famotidine 20 mg PO BID folic acid 1 tab PO DAILY hydroxyzine HCl 25 mg PO BEDTIME polyethylene glycol 3350 (Miralax) 238 grams PO ONCE 1 day ramelteon 8 mg PO BEDTIME sertraline 100 mg PO DAILY trazodone 50 mg PO BEDTIME warfarin 5 mg See Protocol PO DAILY Nursing Note INR: 1.8 OUT therapeutic range- received from VNA nurse Roxanne Medications and supplements reviewed- VNA nurse states pt had been missing one her psych meds x 2 weeks and just resumed 2 days ago- may have had an effect on the INR No changes in health, diet, or supplements, Denies any signs and symptoms of bleeding or bruising or clotting. Bleeding, bruising, clotting discussed Nutritional guidance given- avoid greens today and tomorrow, have foods to help raise the INR today, review food list weekly Dose:7.5mg today then resume 2.5mg x 2 days/ 5mg x 5 days F/U INR: 1 week Patient verbalizes understanding of instructions given Anti-Coag Initial Assessment Social Hx Patient Tobacco Use Status: Current everyday Tobacco user Tobacco use type: Cigarette Smoking packs per day: 1 alcohol intake: never Alcohol intake frequency: does not drink Coding Level of Care Code Est Patient Level 1 Diagnoses Current use of anticoagulant therapy Z79.01 Results AMB INR Fingerstick AMB INR Fingerstick 1.8 Last Edit by Brenda Saldana RN on 10/24/23 12:09 VNA Assessment & Plan Assessment & Plan (1) Current use of anticoagulant therapy: Code(s): Z79.01 - technician terminal and repeater (current) use of anticoagulants
== END 2023-10-24 12:14 | disposition home or self-care (01) ==
LOC: HO.ACS 12:04
PROVIDERS: PCP Internal Medicine; Visit Provider Internal Medicine
DX: Z79.01 Long term (current) use of anticoagulants (principal)

== ENCOUNTER → 2023-10-24 12:04 | Outpatient (BNVA) | payer MEDICAID, SELFPAY | PROVIDERS: PCP Internal Medicine; Visit Provider Internal Medicine | DX: I82.403 Acute embolism and thrombosis of unspecified deep veins of lower extremity, bilateral (principal); I82.503 Chronic embolism and thrombosis of unspecified deep veins of lower extremity, bilateral; Z79.01 Long term (current) use of anticoagulants; Z51.81 Encounter for therapeutic drug level monitoring | CPT/HCPCS: 99211 ==

== ENCOUNTER → 2023-11-01 13:20 | Outpatient (BNVA) | payer MEDICAID, SELFPAY | PROVIDERS: PCP Internal Medicine; Visit Provider Internal Medicine ==

== ENCOUNTER → 2023-11-07 11:37 | Outpatient (BNVA) | payer MEDICAID, SELFPAY | PROVIDERS: PCP Internal Medicine; Visit Provider Internal Medicine ==

== ENCOUNTER → 2023-11-14 09:36 | Outpatient (BNVA) | payer MEDICAID, SELFPAY | PROVIDERS: PCP Internal Medicine; Visit Provider Internal Medicine ==

== ENCOUNTER → 2023-11-22 09:39 | Outpatient (BNVA) | payer MEDICAID, SELFPAY | PROVIDERS: PCP Internal Medicine; Visit Provider Internal Medicine ==

== ENCOUNTER → 2023-12-05 14:21 | Outpatient (BNVA) | payer MEDICAID, SELFPAY | PROVIDERS: PCP Internal Medicine; Visit Provider Internal Medicine ==

== ENCOUNTER 2024-03-06 07:46 | Outpatient (REF) | payer MEDICAID, SELFPAY ==
--- NOTE | ~2024-03-06 | MM_ITS ---
EXAMINATION: MM SCREENING DIGITAL BREAST TOMOSYNTHESIS, BILATERAL CLINICAL INFORMATION: Screening. Asymptomatic. COMPARISON: Mammography: There are no prior mammograms available for comparison. TECHNIQUE: Digital breast tomosynthesis is performed in both the craniocaudal and mediolateral oblique views along with computer-aided detection (CAD). Synthesized 2D images are generated from the tomosynthesis. FINDINGS: The breasts are almost entirely fatty (ACR BI-RADS breast composition Category a). There are no significant masses, abnormal calcifications, or other abnormalities. MM/MM tomosynthesis screening BI IMPRESSION: No mammographic evidence of malignancy. ASSESSMENT: BI-RADS BI-RADS 1 - Negative RECOMMENDATION: Routine annual mammography screening. 1 year F/U This examination should not preclude the clinical evaluation of a suspicious palpable abnormality. This patient's information was entered into a reminder system with a target due date for their next mammogram. Electronically signed by: Radha Montero MD 04/02/2024 07:45 PM EDT
== END 2024-03-06 07:47 | disposition home or self-care (01) ==
LOC: HO.MAMMO 07:46
PROVIDERS: PCP Internal Medicine; Visit Provider Internal Medicine
DX: Z12.31 Encounter for screening mammogram for malignant neoplasm of breast (principal)
CPT/HCPCS: 77063; 77067

== ENCOUNTER → 2024-03-06 08:15 | Outpatient (BNV) | payer MEDICAID, SELFPAY | PROVIDERS: PCP Internal Medicine; Visit Provider Radiology Diagnostic Radiology | DX: Z12.31 Encounter for screening mammogram for malignant neoplasm of breast (principal) | CPT/HCPCS: 77063; 77067 ==

== ENCOUNTER 2024-12-25 08:36 | Outpatient (REF) | payer MEDICAID, SELFPAY ==
--- OUTSIDE RECORDS SUMMARY | 2024-12-25 08:48 | XMS_ITS | Encounter Summary ---
Author Organization [employer] Address [address] [place] [address] Care Team Providers Care Log Grader Name Role Phone Shiv Monroe MD Primary Care Prov ider Encounter Details Date Type Department Care Team ([facility] Contact Info) Description 11/09/2022 Orders Only [facility] [address] [place] [address] Shiv Monroe MD [address] [place] [address] Social History Tobacco Use Types Packs/Day Years Used Date Smoking Tobacco: Former Cigarettes 1 4 0 10/04/2017 - 10/04/2021 Passive Smoke Exposure: Past Smokeless Tobacco: Never Alcohol Use Standard Drinks/Week Comments Never 0 (1 standard drink = 0.6 oz pur e alcohol) Depression Answer Date Recorded Patient Health Questionnaire-9 Score 0 08/22/2022 Depression Answer Date Recorded Patient Health Questionnaire-2 Score 0 08/22/2022 Comments Unknown Sex and Gender Information Value Date Recorded Sex Assigned at Female 05/14/2022 10:37 AM EDT Legal Sex Female 10:37 AM EDT Gender Identity Female 05/14/2022 10:37 AM EDT Sexual Orientation Straight 05/14/2022 10 :37 AM EDT documented as of this encounter Plan of Treatment Upcoming Encounters Date Type Department Care Team ([facility] Contact Info) Description 02/18/2025 8:30 AM EDT Office Visit [facility] [address] [place] [address] Shiv Monroe MD [address] [place] [address] documented as of this encounter Visit Diagnoses Not on filedocumented in this encounter Additional Health Concerns Assessment Noted Time PHQ-9 Depression Total Score: 0 08/22/19 23 9:07 AM EST documented as of this encounter Care Teams Log Grader Relationship Specialty Start Date End Date Shiv Monroe MD [address] [place] [address] PCP - General Internal Medicine 10/12/20 documented as of this encounter
[2024-12-25 14:26] LABS: Cholesterol 159 mg/dL (<200); HDL Cholesterol 45 mg/dL (>40); LDL Cholesterol Calculated 89 mg/dL (<100); Triglycerides 126 mg/dL (<150)
== END 2024-12-25 08:37 | disposition home or self-care (01) ==
LOC: HO.CHCLDS 08:36
PROVIDERS: Visit Provider Internal Medicine
DX: E78.2 Mixed hyperlipidemia (principal)
CPT/HCPCS: 36415; 80061